=== PATIENT | female | born 1955 | race Caucasian/White ===

== ENCOUNTER → 2017-10-18 08:15 | Outpatient (CLI) | payer MEDICARE, SELFPAY ==
--- NOTE | 2017-10-18 07:29 | DI.REPORT_ITS ---
SYMPTOM/DIAGNOSIS: F/U LT FEMUR LEFT FEMUR: The patient is status post intramedullary tammie and nail fixation of a subtrochanteric fracture. There has been no change in the apposition or alignment of the fracture components and progressive healing is noted when compared with a previous examination of 09/11/17.
== END ==
PROVIDERS: PCP Nurse Practitioner Family; Visit Provider Student in an Organized Health Care Education/Training Program
DX: S72.22XD Displaced subtrochanteric fracture of left femur, subsequent encounter for closed fracture with routine healing (principal); W01.0XXD Fall on same level from slipping, tripping and stumbling without subsequent striking against object, subsequent encounter
CPT/HCPCS: 73552

== ENCOUNTER → 2017-10-24 10:25 | Outpatient (CLI) | payer MEDICARE, SELFPAY ==
[2017-10-24 11:11] LABS: HCT 42.7 % (36.0-46.0); HGB 13.9 g/dL (12.0-15.5); Mean Corp. HGB Concentration 32.6 g/dL (32.0-36.0); Mean Corpuscular Hemoglobin 30.5 pg (27.0-33.0); Mean Corpuscular Volume 93.6 fL (80-95); Mean Platelet Volume 10.6 fL (8.0-11.0); Platelet Count 179 x1000/uL (130-400); RBC 4.56 m/cumm (4.00-5.20); RBC Distribution Width 14.2 % (11.7-14.6); White Blood Cell Count 4.95 k/cumm (4.4-10.8)
[2017-10-24 11:41] LABS: Hemoglobin A1C 5.5 % (4.5-6.2)
[2017-10-24 12:22] LABS: ESR 36 MM/HR (0-30)
[2017-10-24 12:43] LABS: Iron 68 ug/dL (50-175); Total Iron Binding Capacity 279 ug/dL (250-450); Transferrin Sat 24 % (15-50)
[2017-10-24 12:58] LABS: ALT 26 U/L (12-78); AST 24 U/L (15-37); Albumin 4.1 g/dL (3.4-5.0); Alkaline Phosphatase 130 U/L (46-116); Anion Gap 8.5 mmol/L (3-11); BUN 9 mg/dL (7-18); Bilirubin, Total 0.4 mg/dL (0.2-1.0); CO2 29.5 mmol/L (21.0-32.0); CREATININE 0.75 mg/dL (0.55-1.02); Calcium 9.7 mg/dL (8.5-10.1); Chloride 105 mmol/L (98-107); Ferritin 68 ng/mL (8-388); Glucose 84 mg/dL (70-100); Potassium 4.4 mmol/L (3.5-5.1); Sodium 143 mmol/L (136-145); TSH (W/Ref FT4) 1.24 uIU/mL (0.358-3.74); Total Protein 7.9 g/dL (6.4-8.2)
[2017-10-24 13:12] LABS: C-Reactive Protein 0.42 mg/dL (0.0-0.3); Creatine Kinase 137 U/L (26-192)
[2017-10-25 11:05] LABS: Hepatitis C Ab w Rflx HCV PCR Negative (NEGAT)
== END ==
PROVIDERS: PCP Nurse Practitioner Family; Visit Provider Nurse Practitioner Family
DX: D64.9 Anemia, unspecified (principal); R63.4 Abnormal weight loss
CPT/HCPCS: 36415; 80053; 82550; 85027; 85652; 86803; 82728; 83036; 83540; 83550; 84443; 86140

== ENCOUNTER 2018-07-26 13:24 | Outpatient (REF) | payer MEDICARE, SELFPAY ==
--- NOTE | 2018-07-26 11:10 | PAPFT_PTH ---
PATIENT: Sandy Hernández LOC: [facility] U#:[id number] AGE/SX: 63/F ROOM: RE07/26/[address]: Solo Khan MD : 1955 BED: DIS: 07/26/2018 SPEC #: [id number] RECD: 07/26/18 17:41 STATUS: ENA REYolande #: [id number] IKER: 07/26/18 11:[address]: Solo Khan DEPT: COUNTS INCLUDE 234 BEDS AT THE [facility] Cytology RECD BY: Chiquis Veras ENTERED: 07/26/18 17:42 SP TYPE: PAPFT OTHR DR: Chantal Alvarez Tissues: 1 - CX/ENDOCX FOR PAP SMEARS Procedures: PAP THIN PREP/UVM Screening HPV DNA PROBE Comments: [id number]
== END 2018-07-26 13:44 ==
LOC: LBN 13:24
PROVIDERS: PCP Nurse Practitioner Family; Visit Provider Obstetrics & Gynecology
DX: Z12.4 Encounter for screening for malignant neoplasm of cervix (principal); Z11.51 Encounter for screening for human papillomavirus (HPV)
CPT/HCPCS: 88142; 87624

== ENCOUNTER 2018-07-31 00:17 | Outpatient (CLI) | payer MEDICARE, SELFPAY ==
--- NOTE | 2018-07-31 08:30 | DI.MAMMO_ITS ---
SYMPTOM/DIAGNOSIS: SCREENING, PREVENTATIVE CARE, Z00.00 MAMMOGRAMS: Mammograms were interpreted according to the usual protocol including computer analysis with CAD system, tomosynthesis and C view imaging. The breast tissue is heterogeneously radiodense which lowers the sensitivity of the examination. There is no dominant mass. There are no suspicious calcifications and there has been no significant interval change when compared with prior images. IMPRESSION: No evidence of malignancy, category 1. Yearly screening mammography is recommended. Breast density, Category C. SA ASSESSMENT OF FINDINGS: Negative. Category 1. Patient will receive a letter notifying them of these results. Bi-RADS category C. The breasts are heterogeneously dense, which may obscure small masses.
== END 2018-07-31 00:37 ==
PROVIDERS: PCP Nurse Practitioner Family; Visit Provider Nurse Practitioner Family
DX: Z12.31 Encounter for screening mammogram for malignant neoplasm of breast (principal)
CPT/HCPCS: 77063; 77067

== ENCOUNTER 2018-09-17 13:32 | Emergency (ER) | payer MEDICARE, SELFPAY ==
[2018-09-17 13:39] VITALS: BP 133/80; PULSE 97; RESP 16; TEMP 36.9
[2018-09-17 14:51] VITALS: RESP 18
--- NOTE | 2018-09-17 15:03 | W.ED.GENAD ---
Discharge Plan Disposition Patient Disposition: HOME Condition: Stable Discharge Details Chief Complaint: GenMedical Clinical Impression: General weakness Primary Care Provider: Danay Mckeon ED Provider: Ino Beaulieu Home Meds and New Rx's Prescriptions: No Action oxybutynin chloride 5 MG tablet 10 mg PO DAILY RF: 0 wp-2-wps-epa-fish oil-vit D3 1 EACH capsule 1 ea PO DAILY RF: 0 fluticasone propion-salmeterol [Advair Diskus] 1 EACH blister with device 1 puff Inhalation BID RF: 0 Spiriva with HandiHaler 18 MCG capsule, w/inhalation device 1 puff Inhalation DAILY RF: 0 Glucosamine Sulf-Chondroitin 1 EACH capsule 1 ea PO DAILY RF: 0 albuterol sulfate [Ventolin HFA] 200 PUFF HFA aerosol inhaler 2 puff Inhalation .Q4-6H PRN PRNRF: 0 Elda Protect 142 GM cream 1 applic Topical PRN PRNRF: 0 Discharge Instructions Instructions: Weakness (ED) Additional Instructions: Your exam, lab work and xray did not reveal a cause for your symptoms. The xray did show pulmonary nodules. There is nothing to do for these at the present time but you need to inform your primary care provider of these when you follow up as further imaging should be done as an outpatient follow up with your primary care office within 1-2 weeks if you have worsening symptoms, feel more ill, or have new symptoms such as chest pain, difficulty breathing, abdominal pain or vision changes return to the emergency department for reevaluation Medical Decision Making 63 yo female with hx of copd who continues to smoke who comes in with chief complaint of worsening general weakness over the past few months. She denies fevers, chills, headache, does have intermittent cough but doesn't feel it is worse than baseline, denies unilateral weakness, no vision changes, no chest pain or sob. She is speaking in full sentences with steady gait on exam and no focal deficits, NIH of 0 so doubt cva. No fevers to suggest infectious etiology to symptoms. Has had a 6 pound unexplained weight loss per with no appetitite so could be cancer of some sort, will obtain cbc to eval for anemia, electrolytes to eval for abnormalities, check tsh and also chest xray given her smoking hx. NO chest pain, no jvd or lower extremity swelling so dobut acs or chf. pt remains stable, lab work is unremarkable, awaiting cxr cxr unremarkable on isacearishi, she continues to ambulate withot problems or symptoms of presyncope. IF vrad agrees with no acute findings will d/c and have her f/u with pcp and return if she has worsening symptoms or new concerning symptoms such as vision changes, fevers or abdominal/chest pain chest xray on vrad shows pulmonary nodules, otherwise unremarkable. Pt was advised to f/u with pcp to discuss further imaging for these Differential Diagnosis anemia, cancer, electrolyte abnormality Medical Records Medical records reviewed: Yes I reviewed the patient's medical records. Imaging Data Radiologic Study: Attestation: I personally reviewed and interpreted this imaging study as follows: Imaging: X-Ray My impression: no acute findings Lab Data Lab results reviewed: Yes I reviewed the patient's lab results. ECG Data Attestation: I personally reviewed and interpreted this ECG (s) as follows: Prior ECG tracings: available for review Interpretation: sinus rhythm, rate of 75, pr 130 , no acute st t wavfe ischemic changes compared to old HPI General Mode of arrival: ambulatory. Date/Time Provider Initiated Documentation: 09/17/18 13:53. Limitations to Documentation: no limitations. Information obtained by: patient. History of Present Illness 63 year old F presents to the emergency department with the chief complaint of general weakness, described as moderate, Patient started experiencing this week(s) (8) and it has been constant. No relieving factors improve symptom(s), No exacerbating factors reported . Patient notes other (no appetite). Patient did receive the following treatments prior to arrival, none Related Data Home Medications Medication Instructions Recorded Confirmed Glucosamine Sulf-Chondroitin 1 ea PO DAILY 11/20/12 09/17/18 Spiriva with HandiHaler 1 puff INHALATION DAILY 11/20/12 09/17/18 fluticasone propion-salmeterol 1 puff INHALATION BID 11/20/12 09/17/18 [Advair Diskus] oxybutynin chloride 10 mg PO DAILY 02/13/14 09/17/18 hf-9-lxr-epa-fish oil-vit D3 1 ea PO DAILY 05/12/14 09/17/18 albuterol sulfate [Ventolin HFA] 2 puff INHALATION .Q4-6H PRN PRN 01/26/17 09/17/18 Elda Protect 1 applic TOPICAL PRN PRN tube 07/31/17 09/17/18 Previous Rx's Medication Instructions Recorded Elda Protect 1 applic TOPICAL PRN PRN tube 07/31/17 Allergies Allergy/AdvReac Type Severity Reaction Status Date / Time No Known Allergies Allergy Unverified 09/17/18 14:39 General Stated Complaint: GenMedical FILOMENA: 4 Review of Systems Review of Systems All systems reviewed & are unremarkable except as noted in HPI and below Constitutional Denies chills and Denies fever(s) Cardiovascular Denies chest pain and Denies dyspnea Respiratory Denies dyspnea Gastrointestinal Denies abdominal pain and Denies vomiting Genitourinary Denies dysuria Integumentary/Breasts Denies rash Endocrine Denies cold intolerance and Denies heat intolerance PFSH Social History Smoking/Tobacco Use Status: Current every day Alcohol Intake: current Drug use: Never Do you feel safe in your relationship?: Yes Exam Const General: no acute distress Orientation: alert HENMT Head: normal to inspection Ears: external ears normal General nose exam: external nose normal Mouth: moist mucous membranes Eyes General: appearance normal, both eyes and all related structures Neck Neck: normal visual inspection Resp Effort & Inspection: normal respiratory effort and able to speak in complete sentences Cardio Rate: regular rate Skin General skin exam: no rashes or lesions noted Neuro General: alert and oriented x3 Extrem General: normal to inspection Psych Mental Status: mental status grossly normal Course Vital Signs Temperature 36.9 C 09/17/18 13:39 Pulse 97 H 09/17/18 13:39 Respiratory Rate 16 09/17/18 13:39 Blood Pressure 133/80 09/17/18 13:39 Temperature 36.9 C 09/17/18 13:39 Temperature Source Temporal Artery Scan 09/17/18 13:39 Pulse 97 H 09/17/18 13:39 Respiratory Rate 18 09/17/18 14:51 Respiratory Effort 09/17/18 14:51 Respiratory Depth Normal 09/17/18 14:51 Blood Pressure 133/80 09/17/18 13:39 Blood Pressure Position Sitting 09/17/18 13:39 Pain Level 0 09/17/18 13:39
--- NOTE | 2018-09-17 15:08 | ED.GENADUL_ITS ---
Discharge Plan Disposition Patient Disposition: HOME Condition: Stable Discharge Details Chief Complaint: GenMedical Clinical Impression: General weakness Primary Care Provider: Danay Mckeon ED Provider: Ino Beaulieu Home Meds and New Rx's Prescriptions: No Action oxybutynin chloride 5 MG tablet 10 mg PO DAILY RF: 0 aj-6-mck-epa-fish oil-vit D3 1 EACH capsule 1 ea PO DAILY RF: 0 fluticasone propion-salmeterol [Advair Diskus] 1 EACH blister with device 1 puff Inhalation BID RF: 0 Spiriva with HandiHaler 18 MCG capsule, w/inhalation device 1 puff Inhalation DAILY RF: 0 Glucosamine Sulf-Chondroitin 1 EACH capsule 1 ea PO DAILY RF: 0 albuterol sulfate [Ventolin HFA] 200 PUFF HFA aerosol inhaler 2 puff Inhalation .Q4-6H PRN PRNRF: 0 Elda Protect 142 GM cream 1 applic Topical PRN PRNRF: 0 Discharge Instructions Instructions: Weakness (ED) Additional Instructions: Your exam, lab work and xray did not reveal a cause for your symptoms. The xray did show pulmonary nodules. There is nothing to do for these at the present time but you need to inform your primary care provider of these when you follow up as further imaging should be done as an outpatient follow up with your primary care office within 1-2 weeks if you have worsening symptoms, feel more ill, or have new symptoms such as chest pain, difficulty breathing, abdominal pain or vision changes return to the emergency department for reevaluation Medical Decision Making 63 yo female with hx of copd who continues to smoke who comes in with chief complaint of worsening general weakness over the past few months. She denies fevers, chills, headache, does have intermittent cough but doesn't feel it is worse than baseline, denies unilateral weakness, no vision changes, no chest pain or sob. She is speaking in full sentences with steady gait on exam and no focal deficits, NIH of 0 so doubt cva. No fevers to suggest infectious etiology to symptoms. Has had a 6 pound unexplained weight loss per with no appetitite so could be cancer of some sort, will obtain cbc to eval for anemia, electrolytes to eval for abnormalities, check tsh and also chest xray given her smoking hx. NO chest pain, no jvd or lower extremity swelling so dobut acs or chf. pt remains stable, lab work is unremarkable, awaiting cxr cxr unremarkable on isacearishi, she continues to ambulate withot problems or symptoms of presyncope. IF vrad agrees with no acute findings will d/c and have her f/u with pcp and return if she has worsening symptoms or new concerning symptoms such as vision changes, fevers or abdominal/chest pain chest xray on vrad shows pulmonary nodules, otherwise unremarkable. Pt was advised to f/u with pcp to discuss further imaging for these Differential Diagnosis anemia, cancer, electrolyte abnormality Medical Records Medical records reviewed: Yes I reviewed the patient's medical records. Imaging Data Radiologic Study: Attestation: I personally reviewed and interpreted this imaging study as follows: Imaging: X-Ray My impression: no acute findings Lab Data Lab results reviewed: Yes I reviewed the patient's lab results. ECG Data Attestation: I personally reviewed and interpreted this ECG (s) as follows: Prior ECG tracings: available for review Interpretation: sinus rhythm, rate of 75, pr 130 , no acute st t wavfe ischemic changes compared to old HPI General Mode of arrival: ambulatory . Date/Time Provider Initiated Documentation: 09/17/18 13:53 . Limitations to Documentation: no limitations . Information obtained by: patient . History of Present Illness 63 year old F presents to the emergency department with the chief complaint of general weakness, described as moderate, Patient started experiencing this week(s) (8) and it has been constant. No relieving factors improve symptom(s), No exacerbating factors reported . Patient notes other (no appetite). Patient did receive the following treatments prior to arrival, none Related Data Home Medications Medication Instructions Recorded Confirmed Glucosamine Sulf-Chondroitin 1 ea PO DAILY 11/20/12 09/17/18 Spiriva with HandiHaler 1 puff INHALATION DAILY 11/20/12 09/17/18 fluticasone propion-salmeterol 1 puff INHALATION BID 11/20/12 09/17/18 [Advair Diskus] oxybutynin chloride 10 mg PO DAILY 02/13/14 09/17/18 ed-5-xnl-epa-fish oil-vit D3 1 ea PO DAILY 05/12/14 09/17/18 albuterol sulfate [Ventolin HFA] 2 puff INHALATION .Q4-6H PRN PRN 01/26/17 09/17/18 Elda Protect 1 applic TOPICAL PRN PRN tube 07/31/17 09/17/18 Previous Rx's Medication Instructions Recorded Elda Protect 1 applic TOPICAL PRN PRN tube 07/31/17 Allergies Allergy/AdvReac Type Severity Reaction Status Date / Time No Known Allergies Allergy Unverified 09/17/18 14:39 General Stated Complaint: GenMedical FILOMENA: 4 Review of Systems Review of Systems All systems reviewed & are unremarkable except as noted in HPI and below Constitutional Denies chills and Denies fever(s) Cardiovascular Denies chest pain and Denies dyspnea Respiratory Denies dyspnea Gastrointestinal Denies abdominal pain and Denies vomiting Genitourinary Denies dysuria Integumentary/Breasts Denies rash Endocrine Denies cold intolerance and Denies heat intolerance PFSH Social History Smoking/Tobacco Use Status: Current every day Alcohol Intake: current Drug use: Never Do you feel safe in your relationship?: Yes Exam Const General: no acute distress Orientation: alert HENMT Head: normal to inspection Ears: external ears normal General nose exam: external nose normal Mouth: moist mucous membranes Eyes General: appearance normal, both eyes and all related structures Neck Neck: normal visual inspection Resp Effort & Inspection: normal respiratory effort and able to speak in complete sentences Cardio Rate: regular rate Skin General skin exam: no rashes or lesions noted Neuro General: alert and oriented x3 Extrem General: normal to inspection Psych Mental Status: mental status grossly normal Course Vital Signs Temperature 36.9 C 09/17/18 13:39 Pulse 97 H 09/17/18 13:39 Respiratory Rate 16 09/17/18 13:39 Blood Pressure 133/80 09/17/18 13:39 Temperature 36.9 C 09/17/18 13:39 Temperature Source Temporal Artery Scan 09/17/18 13:39 Pulse 97 H 09/17/18 13:39 Respiratory Rate 18 09/17/18 14:51 Respiratory Effort 09/17/18 14:51 Respiratory Depth Normal 09/17/18 14:51 Blood Pressure 133/80 09/17/18 13:39 Blood Pressure Position Sitting 09/17/18 13:39 Pain Level 0 09/17/18 13:39
[2018-09-17 15:23] LABS: Abs Immature Grans 0.01 k/cumm (0.0-0.09); Absolute Basophil Count 0.03 k/cumm (0.0-0.2); Absolute Eosinophil Count 0.19 k/cumm (0.0-0.7); Absolute Lymphocyte Count 1.36 k/cumm (1.2-3.4); Absolute Monocyte Count 0.51 k/cumm (0.11-0.7); Basophils % 0.5; HCT 41.8 % (36.0-46.0); HGB 13.8 g/dL (12.0-15.5); Immature Grans % 0.2; Lymphocytes % 21.6; Mean Corpuscular Hemoglobin 31.4 pg (27.0-33.0); Mean Platelet Volume 10.8 fL (8.0-11.0); Monocytes % 8.1; Neutrophils % 66.6; Platelet Count 201 x1000/uL (130-400); RBC Distribution Width 13.1 % (11.7-14.6)
[2018-09-17 15:34] LABS: Prothrombin Time 10.3 sec (9.3-11.0)
[2018-09-17 15:40] LABS: ALT 20 U/L (12-78); AST 15 U/L (15-37); Albumin 3.6 g/dL (3.4-5.0); Alkaline Phosphatase 102 U/L (46-116); Anion Gap 6.5 mmol/L (3-11); BUN 18 mg/dL (7-18); Bilirubin, Direct 0.08 mg/dL (0.00-0.20); Bilirubin, Total 0.3 mg/dL (0.2-1.0); CO2 30.5 mmol/L (21.0-32.0); CREATININE 0.73 mg/dL (0.55-1.02); Calcium 9.8 mg/dL (8.5-10.1); Chloride 103 mmol/L (98-107); Glucose 83 mg/dL (70-100); Potassium 4.3 mmol/L (3.5-5.1); Sodium 140 mmol/L (136-145); TSH (W/Ref FT4) 1.23 uIU/mL (0.358-3.74); Total Protein 7.9 g/dL (6.4-8.2)
--- NOTE | 2018-09-17 16:00 | DI.RAD_ITS ---
SYMPTOM/DIAGNOSIS: COUGH, GENERAL WEAKNESS PA AND LATERAL CHEST: 09/17 The heart is not enlarged. Lungs are predominantly clear but with question of nodular radiodensities superimposed in the right lower lung field, intrapulmonary nodule not excluded. Questionable upper lobe nodular opacities also could be present bilaterally. No pleural effusion seen. CONCLUSION: Question new intrapulmonary nodules, correlation with chest CT recommended.
--- NOTE | 2018-09-17 16:39 | DI.VRAD_ITS ---
EXAM: XR Chest, 2 Views EXAM DATE/TIME: 09/17/2018 3:54 PM CLINICAL HISTORY: 63 years old, female; Patient HX: Cough, general weakness TECHNIQUE: Imaging protocol: XR of the chest, 2 views. COMPARISON: SC PORTABLE CHEST ONE VIEW 07/29/2017 3:17 PM FINDINGS: Lungs: There is a focal nodular opacity measuring approximately 13 mm within the left upper lobe superimposed over the posterior left fifth rib and a questionable nodular opacity within the right upper lobe superimposed over the right fifth rib. There is a nodular opacity measuring approximately 23 mm within the right infrahilar lung superimposed over the posterior aspect of the right 10th rib. The lung volumes are increased, consistent with COPD. No pulmonary consolidation is identified. Bilateral nipple shadows are present. Pleural space: No pleural effusion or pneumothorax is seen. Heart/Mediastinum: The cardiomediastinal silhouette and pulmonary vasculature are within normal limits. Bones/joints: There is an indeterminate calcific density focus superimposed over the right humerus surgical neck. There is mild degenerative spondylosis throughout the thoracic spine. IMPRESSION: 1. COPD. 2. Findings suspicious for bilateral pulmonary nodules. Further evaluation with CT scan of the chest is recommended. 3. Indeterminate calcific density superimposed over the right proximal humerus. Dictated and Authenticated by: Aiden Hendrickson MD. Ordering:REUBEN Mckinnon MD
== END 2018-09-17 16:48 | disposition home or self-care (01) ==
PROVIDERS: Emergency Provider Emergency Medicine; PCP Nurse Practitioner Family
DX: R53.1 Weakness (principal); R93.89 Abnormal findings on diagnostic imaging of other specified body structures; J44.9 Chronic obstructive pulmonary disease, unspecified; F17.210 Nicotine dependence, cigarettes, uncomplicated
CPT/HCPCS: 36415; 80053; 80076; 93005; 99285; 71046; 83735; 84443; 85025; 85610; 85730; 93010; 99284

== ENCOUNTER 2018-09-24 08:58 | Outpatient (REF) | payer MEDICARE, SELFPAY ==
--- NOTE | 2018-09-24 08:30 | CER_PTH ---
PATIENT: Sandy Hernández LOC: N U#:[id number] AGE/SX: 63/F ROOM: RE09/24/[address]: Solo Khan MD : 1955 BED: DIS: 09/24/2018 SPEC #: [id number] RECD: 09/24/18 12:43 STATUS: ENA REYolande #: [id number] IKER: 09/24/18 08:[address]: Solo Khan DEPT: Surgical Specimen RECD BY: Chiquis Veras ENTERED: 09/24/18 12:44 SP TYPE: CER OTHR DR: Danay Mckeon Tissues: 1 - CERVICAL BIOPSY 2 - CERVICAL BIOPSY 3 - CERVICAL BIOPSY 4 - ENDOCERVICAL BX/CURRETTE Procedures: GROSS AND MICRO LEVEL 4 Comments: [id number]
== END 2018-09-24 09:18 ==
LOC: LBN 08:58
PROVIDERS: PCP Nurse Practitioner Family; Visit Provider Obstetrics & Gynecology
DX: N87.1 Moderate cervical dysplasia (principal); R87.613 High grade squamous intraepithelial lesion on cytologic smear of cervix (HGSIL); R87.810 Cervical high risk human papillomavirus (HPV) DNA test positive
CPT/HCPCS: 88305

== ENCOUNTER 2018-09-27 12:06 | Outpatient (CLI) | payer MEDICARE, SELFPAY ==
--- NOTE | 2018-09-27 13:27 | DI.CT_ITS ---
SYMPTOM/DIAGNOSIS: RT LOWER LOBE PULMONARY NODULE, R91.[address]: The study was carried out according to the usual protocol and reveals evidence of centrilobular COPD. Also note is made of bronchiectasis, more prominent in the lower lobes and right middle lobe. There is an apparent region of right middle lobe scarring. There has been no change in the status of a spiculated right upper lobe area of nodularity. Interval development of a 9.1 mm., ovoid nodule in the left upper lobe is noted. There is central radiolucency surrounded by a moderately thick rind and a small mural nodular is noted within this lesion. No other nodules are apparent. There is no evidence of a pleural effusion. There is no evidence of gross hilar or mediastinal adenopathy. The heart is not enlarged. Coronary artery calcification is demonstrated. The aorta is intact. SUMMARY: COPD, right upper lobe nodule unchanged. Interval development of a 9 mm. left upper lobe nodule is demonstrated as described above. Further evaluation of this patient with a with contrast contrast CT is suggested for further review. If a follow up examination with contrast is not obtained, then a repeat low dose chest CT is suggested 3-6 months.
== END 2018-09-27 12:26 ==
PROVIDERS: PCP Nurse Practitioner Family; Visit Provider Nurse Practitioner Family
DX: R91.1 Solitary pulmonary nodule (principal); J44.9 Chronic obstructive pulmonary disease, unspecified
CPT/HCPCS: 71250

== ENCOUNTER 2018-09-30 07:01 | Emergency (ER) | payer MEDICARE, SELFPAY ==
[2018-09-30 07:04] VITALS: BP 106/77; PULSE 99; RESP 18; TEMP 36.9; O2SAT 96
--- NOTE | 2018-09-30 07:11 | W.ED.GENAD ---
Discharge Plan Disposition Patient Disposition: HOME Condition: Good Discharge Details Chief Complaint: GenMedical Clinical Impression: Physically well but worried, Recent weight loss Primary Care Provider: Danay Mckeon ED Provider: Iain Cee Home Meds and New Rx's Prescriptions: No Action oxybutynin chloride 5 MG tablet 10 mg PO DAILY RF: 0 xs-3-exf-epa-fish oil-vit D3 1 EACH capsule 1 ea PO DAILY RF: 0 fluticasone propion-salmeterol [Advair Diskus] 1 EACH blister with device 1 puff Inhalation BID RF: 0 Spiriva with HandiHaler 18 MCG capsule, w/inhalation device 1 puff Inhalation DAILY RF: 0 Glucosamine Sulf-Chondroitin 1 EACH capsule 1 ea PO DAILY RF: 0 albuterol sulfate [Ventolin HFA] 200 PUFF HFA aerosol inhaler 2 puff Inhalation .Q4-6H PRN PRNRF: 0 Elda Protect 142 GM cream 1 applic Topical PRN PRNRF: 0 Discharge Instructions Additional Instructions: Even though you are down 1 to 3 pounds in the morning your weight seems to be back to normal by the evening. However out of respective you are concerned we will check for parasites. Once you get the stool sample please bring it back with the slip of paper to the lab for further evaluation. Please continue to drink your Ensure, eat high-protein meals and follow-up closely with your primary care provider. If you notice any worsening of your symptoms, or any new symptoms such as vomiting, diarrhea, fever, chills, shortness of breath, chest pain, numbness, weakness, or fainting , please return immediately to the emergency department for reevaluation. Please follow up with your primary care provider as soon as possible for reassessment and reevaluation. As always, it was a pleasure participating in your medical care today. Referrals: Danay Mckeon [Primary Care Provider] - Medical Decision Making This is a 63-year-old female who presents today for evaluation of weight loss. She has known history of lung nodules which are being monitored, and recently had a colposcopy which demonstrated high-grade squamous intraepithelial lesions and is scheduled to follow-up with these results later this month. Patient states that over the last 3 days she has lost 3 pounds. Her baseline weight is 100 pounds, and today she is 97. She states that in spite of this weight loss during the afternoon for the last few days she has an increase in her weight to 102-103. She denies any nausea vomiting or diarrhea she denies any dark or tarry stools. She denies any abdominal pain or cramping. Patient states multiple times during her visit that she is convinced that her symptoms are from parasites. She has no history of foreign travel, parasite exposure, or previous parasite lesions. Physical exam demonstrates a thin but otherwise unremarkable exam. No abdominal tenderness. No guarding or rebound. No evidence of an acute surgical abdomen or other abnormalities. The patient had a CT scan of the chest that was otherwise benign this month. Out of respect for the patient's notable concern we will order outpatient stool cultures for the patient. We discussed the importance of close follow-up with her primary care provider and reassessment for any worsening of her symptoms. With the resolution of her weight issues in the evening every day, do not feel that this is a significant or true weight loss, however I do feel that close follow-up is certainly reasonable and indicated. I have extensively reviewed the treatment plan and discharge instructions with the patient and their family. I have addressed all patient concerns at this time. The patient and family was made aware of what symptoms to monitor for that would warrant a return to the emergency department. Discussed the plan with the patient and family, they demonstrate verbal understanding and agreement with our assessment and plan at this time. HPI General Date/Time Provider Initiated Documentation: 09/30/18 07:02. HPI Narrative: This is a 63-year-old female with a past medical history of known pulmonary nodule that is currently being followed with repeat CT imaging, arthritis, cataracts, COPD, chronic kidney stones, who presents today for evaluation of weight loss. Patient states that over the last 3 days she has lost 3 pounds. Her baseline weight is 100 pounds, and today she states that she is 97. However she states that over the last 3 days even though she is low in her weight in the morning her weight is 102 to 10 3 at night. Patient is very anxious and concerned about this. She states that I have an appointment later this month but if I wait too long just below way in the wind. She is also very concerned about parasites. She denies any foreign travel, drinking from streams, or any previous parasites. She seems to be notably preoccupied on this. She states that she feels that this is the primary reason that she is losing weight in the morning. She denies any abdominal pain, nausea, vomiting, diarrhea, hematochezia, melena, acholic stool, numbness, tingling or weakness. She is drinking daily ensures. She denies any history of significant malignancy. Of note she was recently diagnosed with high-grade squamous intraepithelial lesions on colposcopy, and is scheduled to follow-up with her OB doctor early this month. Patient has no other complaints modifying factors Related Data Home Medications Medication Instructions Recorded Confirmed Glucosamine Sulf-Chondroitin 1 ea PO DAILY 11/20/12 09/24/18 Spiriva with HandiHaler 1 puff INHALATION DAILY 11/20/12 09/24/18 fluticasone propion-salmeterol 1 puff INHALATION BID 11/20/12 09/24/18 [Advair Diskus] oxybutynin chloride 10 mg PO DAILY 02/13/14 09/24/18 ax-1-qpq-epa-fish oil-vit D3 1 ea PO DAILY 05/12/14 09/24/18 albuterol sulfate [Ventolin HFA] 2 puff INHALATION .Q4-6H PRN PRN 01/26/17 09/24/18 Elda Protect 1 applic TOPICAL PRN PRN tube 07/31/17 09/24/18 Previous Rx's Medication Instructions Recorded Elda Protect 1 applic TOPICAL PRN PRN tube 07/31/17 Allergies Allergy/AdvReac Type Severity Reaction Status Date / Time No Known Allergies Allergy Unverified 09/24/18 08:12 General Stated Complaint: GenMedical FILOMENA: 3 Review of Systems Review of Systems All systems reviewed & are unremarkable except as noted in HPI and below PFSH Social History Smoking/Tobacco Use Status: Current every day Tobacco Type: cigarettes Alcohol Intake: never Drug use: Never Substance use type: does not use Do you feel safe at home: Yes Do you feel safe in your relationship?: Yes Exam Narrative Exam Narrative: 1.Const: Thin, Well-developed, appearing stated age 2.Eyes: PERRL, no conjunctival injection, and symmetrical lids. 3.ENT: Atraumatic external nose and ears. Moist MM. Neck: Symmetric, trachea midline, No thyromegaly. 4.CVS: +S1/S2, No murmurs or gallops. Peripheral pulses 2+ and equal in all extremities. Brisk capillary refill in all extremities. 5.RESP: Unlabored respiratory effort. Clear to auscultation bilaterally. No wheezes rales or rhonchi 6.GI: Soft, Nontender/Nondistended, No hepatosplenomegaly. No guarding or rebound. 7.MSK: Normocephalic/Atraumatic, Extremities w/o deformity or ttp No cyanosis or clubbing, Normal movement of all extremities 8.Skin: Warm, Dry. No rashes or lesions. 9.Neuro: roll dough divider II-XII grossly intact. Sensation grossly intact, no focal neurologic deficits. 10.Psych: (AAO) x3. Appropriate mood and affect Course Vital Signs Temperature 36.9 C 09/30/18 07:04 Pulse 99 H 09/30/18 07:04 Respiratory Rate 18 09/30/18 07:04 Blood Pressure 106/77 09/30/18 07:04 Pulse Oximetry 96 09/30/18 07:04 Temperature 36.9 C 09/30/18 07:04 Temperature Source Temporal Artery Scan 09/30/18 07:04 Pulse 99 H 09/30/18 07:04 Respiratory Rate 18 09/30/18 07:04 Respiratory Effort Non-Labored 09/30/18 07:10 Blood Pressure 106/77 09/30/18 07:04 Blood Pressure Position Sitting 09/30/18 07:04 Pulse Oximetry 96 09/30/18 07:04 Oxygen Delivery Method Room Air 09/30/18 07:04 Oxygen Flow Rate 0 09/30/18 07:04 Pain Level 0 09/30/18 07:04
== END 2018-09-30 07:39 | disposition home or self-care (01) ==
PROVIDERS: Emergency Provider Student in an Organized Health Care Education/Training Program; PCP Nurse Practitioner Family
DX: R63.4 Abnormal weight loss (principal); Z71.1 Person with feared health complaint in whom no diagnosis is made; J44.9 Chronic obstructive pulmonary disease, unspecified; F17.210 Nicotine dependence, cigarettes, uncomplicated
CPT/HCPCS: 99281; 87177

== ENCOUNTER 2018-10-29 10:08 | Outpatient (REF) | payer MEDICARE, SELFPAY ==
--- NOTE | 2018-10-29 09:25 | CER_PTH ---
PATIENT: Sandy Hernández LOC: [facility] U#:[id number] AGE/SX: 63/F ROOM: RE10/29/[address]: Solo Khan MD : 1955 BED: DIS: 10/29/2018 SPEC #: [id number] RECD: 10/29/18 12:05 STATUS: ENA REYolande #: [id number] IKER: 10/29/18 09:[address]: Solo Khan DEPT: Surgical Specimen RECD BY: Lilian Cannon ENTERED: 10/29/18 12:10 SP TYPE: CER OTHR DR: Chantal Alvarez Tissues: 1 - CERVICAL LEEP/LOOP 2 - CERVICAL LEEP/LOOP 3 - ENDOCERVICAL BX/CURRETTE Procedures: GROSS AND MICRO LEVEL 5 Comments: [id number]
== END 2018-10-29 10:28 ==
LOC: LBN 10:08
PROVIDERS: PCP Nurse Practitioner Family; Visit Provider Obstetrics & Gynecology
DX: N87.1 Moderate cervical dysplasia (principal); N88.8 Other specified noninflammatory disorders of cervix uteri; Z87.410 Personal history of cervical dysplasia
CPT/HCPCS: 88305; 88307

== ENCOUNTER 2019-02-05 00:53 | Outpatient (CLI) | payer MEDICARE, SELFPAY ==
--- NOTE | 2019-02-05 13:30 | DI.CT_ITS ---
EXAM: CT CHEST W CLINICAL HISTORY: LT AND RT UPPER LOBE PULMONARY NODULES, R91.1 TECHNIQUE: Post IV contrast COMPARISON: CHEST - LUNG CANCER SCREENING from 03/28/2016 XR CHEST 2V PA LATERAL from 09/17/2018 CT CHEST WO from 09/27/2018 FINDINGS: The previously noted cavitary lesion in the left upper lobe with a small mural nodule now has the kera earance of a solid 10 millimeter nodule. The borders do not appear circumscribed. There is a stable area of presumed scarring in the right upper lobe. A small stable area of scarring is noted lateral ly in the left upper lobe. There are moderate changes of centrilobular emphysema greater in the uppe r lobes. There is mild lateral lower lobe and right middle lobe bronchiectasis. There is some mucou s plugging within a few bronchi in the medial right middle lobe. No acute infiltrates, pleural or pe ricardial effusions are seen. There are coronary artery calcifications and mild aortic calcification s. The heart size is normal. There is mild dilatation of the thoracic aorta to 3.6 cm. No adenopat hy is seen. The visualized portions of the upper abdomen are unremarkable. IMPRESSION: Interval increase of left upper lobe nodule, now with a solid appearance. Biopsy is recommended for further evaluation.
[2019-02-05 14:16] LABS: CREATININE 0.71 mg/dL (0.55-1.02)
[2019-02-05] MEDS: Omnipaque 350 MG/ML 100 ML BTL IJ (14:47)
== END 2019-02-05 01:13 ==
PROVIDERS: PCP Nurse Practitioner Family; Visit Provider Nurse Practitioner Family
DX: R91.1 Solitary pulmonary nodule (principal); R91.8 Other nonspecific abnormal finding of lung field; J47.9 Bronchiectasis, uncomplicated
CPT/HCPCS: 71260; 82565; J3490

== ENCOUNTER 2019-07-24 01:58 | Outpatient (CLI) | payer MEDICARE, SELFPAY ==
[2019-07-24] MEDS: Normal Saline - Diluent 50 ML VIAL IV (13:56)
[2019-07-24] MEDS: Omnipaque 350 MG/ML 100 ML BTL IJ (13:58)
--- NOTE | 2019-07-24 13:59 | DI.CT_ITS ---
EXAM: CT CHEST W CLINICAL HISTORY: RT LOWER LOBE NODULE, R91.1, SMOKER, ASSESS FOR PROGRESSION TECHNIQUE: CT examination of the chest was performed with bolus infusion of 70 cc of Omnipaque 350. COMPARISON: CT CT CHEST W from 02/05/2019 FINDINGS: Current examination is compared with prior study of February 05, 2019. Images obtained through the upper abdomen show non-obstructing bilateral renal calculi and an apparen t 3 cm in diameter right renal cyst. The liver and spleen appear normal as visualized as does the pa ncreas. Gallbladder has been surgically removed. Adrenals unremarkable. There is no evidence of pulmonary embolic disease. No thoracic aortic abnormality seen apart from mi ld calcified atheromatous plaque. No mediastinal or hilar adenopathy. There is moderate diffuse central lobular emphysema most prominent in the upper lobes. Previously de scribed bilateral upper lobe pulmonary nodules are again seen, on the right measuring up to about 9.5 millimeters in diameter and then on the left measuring about 10 millimeters in diameter. These both appear spiculated, tiny satellite nodules appear to be present associated with the right upper lobe lesion. The findings appear stable since the prior examination. No new area of pulmonary consolidation seen. There are, however, a couple of apparent small new pulmo nary nodules, one in the left upper lobe posteriorly measuring about 3-4 millimeters in diameter and another on the superior aspect of the left lower lobe measuring about [address] diame ter. Calcified pulmonary nodule again noted at the right lung base. IMPRESSION: Little interval change in appearance of dominant biapical pulmonary nodules since January 2019. Two small new nodules are noted in the left lung, findings are suspicious for neoplastic disease. Clini cheli correlation requested regarding any interval tissue sampling or treatment.
== END 2019-07-24 02:18 ==
PROVIDERS: PCP Nurse Practitioner Family; Visit Provider Nurse Practitioner Family
DX: R91.1 Solitary pulmonary nodule (principal); F17.210 Nicotine dependence, cigarettes, uncomplicated; N20.0 Calculus of kidney; N28.1 Cyst of kidney, acquired; J43.8 Other emphysema; R91.8 Other nonspecific abnormal finding of lung field
CPT/HCPCS: 71260; J3490

== ENCOUNTER 2019-08-21 09:32 | Outpatient (REF) | payer MEDICARE, SELFPAY ==
--- NOTE | 2019-08-21 09:00 | PAPFT_PTH ---
PATIENT: Sandy Hernández LOC: N U#:[id number] AGE/SX: 64/F ROOM: RE08/21/[address]: Abbi Beaulieu NP : 1955 BED: DIS: 08/21/2019 SPEC #: [id number] RECD: 08/21/19 12:56 STATUS: ENA KUHN #: [id number] IKER: 08/21/19 09:[address]: Abbi Beaulieu NP DEPT: [facility] Cytology RECD BY: Chiquis Veras ENTERED: 08/21/19 12:57 SP TYPE: PAPFT OTHR DR: Danay Mckeon Tissues: 1 - CX/ENDOCX FOR PAP SMEARS Procedures: PAP THIN PREP/UVM Screening Comments: [id number]
== END 2019-08-21 09:52 ==
LOC: LBN 09:32
PROVIDERS: PCP Nurse Practitioner Family; Visit Provider Nurse Practitioner Women's Health
DX: Z12.4 Encounter for screening for malignant neoplasm of cervix (principal); Z11.51 Encounter for screening for human papillomavirus (HPV); R87.613 High grade squamous intraepithelial lesion on cytologic smear of cervix (HGSIL)
CPT/HCPCS: 88142

== ENCOUNTER 2019-09-05 13:36 | Outpatient (REF) | payer MEDICARE, SELFPAY ==
--- NOTE | 2019-09-05 13:20 | ENDO_PTH ---
PATIENT: Sandy Hernández LOC: [facility] U#:[id number] AGE/SX: 64/F ROOM: RE09/05/[address]: Solo Khan MD : 1955 BED: DIS: 09/05/2019 SPEC #: [id number] RECD: 09/05/19 16:37 STATUS: ENA REQ #: [id number] IKER: 09/05/19 13:[address]: Solo Khan DEPT: Surgical Specimen RECD BY: Chiquis Veras ENTERED: 09/05/19 16:37 SP TYPE: Endo OTHR DR: Danay Mckeon Tissues: 1 - ENDOCERVICAL BX/CURRETTE Procedures: GROSS AND MICRO LEVEL 4 Comments: [id number]
== END 2019-09-05 13:56 ==
LOC: LBN 13:36
PROVIDERS: PCP Nurse Practitioner Family; Visit Provider Obstetrics & Gynecology
DX: N87.1 Moderate cervical dysplasia (principal); R87.613 High grade squamous intraepithelial lesion on cytologic smear of cervix (HGSIL)
CPT/HCPCS: 88305

== ENCOUNTER 2019-09-16 00:29 | Outpatient (CLI) | payer OTHER, SELFPAY ==
--- NOTE | 2019-09-16 09:30 | DI.MAMMO_ITS ---
EXAM: MAMMO SCREENING CLINICAL HISTORY: screening TECHNIQUE: Mammograms were interpreted according to the usual protocol including computer analysis w [employer] CAD system, tomosynthesis and C-view imaging. COMPARISON: 2010 through 2018 FINDINGS: The breasts are composed of heterogeneously dense fibroglandular densities, Breast Density category C . No suspicious masses or suspicious microcalcifications are seen. Coarse, benign calcifications are a gain noted bilaterally. No skin thickening or abnormal axillary lymph nodes are seen. There has been no significant change from prior exams. IMPRESSION: BI-RADS Category 2- negative mammogram with benign Findings Breast Density Category C, heterogeneously dense tissue which decreases the sensitivity of the mammog hossein. The mammogram demonstrates the patient's breast tissue is dense. Dense breast tissue is very common a nd is not abnormal but dense breast tissue can make it harder to find cancer on a mammogram. Also, de nse breast tissue may increase breast cancer risk. This information about the result of the mammogram report was provided to the patient to raise their awareness. Use this report when you speak with the patient about their risks for breast cancer, which includes their family history. At that time, you may recommend additional screening tests (Ultrasound or MRI) as they might be useful based on their r isk. A negative radiographic report should not delay biopsy if a dominant or clinically suspicious mass is present. Up to ten percent of cancers are not identified on mammography. A negative report may reinforce clinical impression. Adenosis and dense breasts may obscure an underlying neoplasm. False positive reports average 6 to 10%.
== END 2019-09-16 00:49 ==
PROVIDERS: PCP Nurse Practitioner Family; Visit Provider Nurse Practitioner Women's Health
DX: Z12.31 Encounter for screening mammogram for malignant neoplasm of breast (principal)
CPT/HCPCS: 77063; 77067

== ENCOUNTER 2019-10-28 09:18 | Outpatient (REF) | payer OTHER, SELFPAY ==
--- NOTE | 2019-10-28 08:20 | CER_PTH ---
PATIENT: Sandy Hernández LOC: [facility] U#:[id number] AGE/SX: 64/F ROOM: RE10/28/[address]: Solo Khan MD : 1955 BED: DIS: 10/28/2019 SPEC #: [id number] RECD: 10/28/19 10:42 STATUS: ENA REQ #: [id number] IKER: 10/28/19 08:[address]: Solo Khan DEPT: Surgical Specimen RECD BY: Carlotta Cain ENTERED: 10/28/19 10:44 SP TYPE: CER OTHR DR: Danay Mckeon Tissues: 1 - CERVICAL LEEP/LOOP Procedures: GROSS AND MICRO LEVEL 5 Comments: [id number]
== END 2019-10-28 09:38 ==
LOC: LBN 09:18
PROVIDERS: PCP Nurse Practitioner Family; Visit Provider Obstetrics & Gynecology
DX: N87.1 Moderate cervical dysplasia (principal)
CPT/HCPCS: 88307

== ENCOUNTER 2019-11-13 21:19 | Outpatient (REF) | payer OTHER, SELFPAY ==
[2019-11-13 20:42] LABS: Bilirubin Negative (Negative); Blood Large (Negative); Clarity Cloudy (Clear); Glucose Negative (Negative); Ketones Negative (Negative); Leukocyte Esterase Moderate (Negative); Nitrite Positive (Negative); Specific Gravity >= 1.030 (1.005-1.025); Urobilinogen 0.2 EU/dL (Up TO 0.2); pH 5.5 (5-8)
[2019-11-13 20:58] LABS: Bacteria Many HPF (Negative); C & S Indicated? Yes; Casts Negative LPF (Negative); Crystals Negative HPF (Negative); Epithelial Cells Few HPF (Negative); Mucus Negative (Negative); WBC 20-50 HPF (0-5)
== END 2019-11-13 21:39 ==
LOC: NCHCN 21:19
PROVIDERS: PCP Nurse Practitioner Family; Visit Provider Nurse Practitioner Family
DX: R30.0 Dysuria (principal)
CPT/HCPCS: 87077; 81003; 81015; 87086; 87186

== ENCOUNTER 2019-11-14 08:45 | Outpatient (REF) | payer OTHER, SELFPAY ==
[2019-11-14 15:44] LABS: HCT 45.9 % (36.0-46.0); MCH 31.4 pg (27.0-33.0); MCHC 32.7 % (32.0-36.0); MPV 11.3 fL (8.0-11.0); Platelet Count 196 10^3/uL (130-400); RBC 4.78 10^6/uL (3.93-5.22); RDW-SD 46.3 fL; WBC 6.49 10^3/uL (4.4-10.8)
[2019-11-14 16:33] LABS: Iron 104 ug/dL (50-170); Total Iron Binding Capacity 254 ug/dL (250-450); Transferrin Sat 41 % (15-50)
[2019-11-14 16:55] LABS: Vitamin D 25 Total 62.8 ng/ml (30-100)
[2019-11-14 17:08] LABS: ALT 25 U/L (14-59); AST 25 U/L (15-37); Albumin 4.1 g/dL (3.4-5.0); Alkaline Phosphatase 110 U/L (46-116); Anion Gap 6.4 mmol/L (3-11); BUN 16 mg/dL (7-18); Bilirubin, Total 0.6 mg/dL (0.2-1.0); CO2 30.6 mmol/L (21.0-32.0); CREATININE 0.77 mg/dL (0.55-1.02); Calcium 9.8 mg/dL (8.5-10.1); Chloride 107 mmol/L (98-107); Glucose 86 mg/dL (74-106); Potassium 4.5 mmol/L (3.5-5.1); Sodium 144 mmol/L (136-145); TSH (W/Ref FT4) 1.12 uIU/mL (0.36-3.74); Total Protein 8.3 g/dL (6.4-8.2); Vitamin B12 1297 pg/mL (193-986)
== END 2019-11-14 09:05 ==
LOC: NCHCN 08:45
PROVIDERS: PCP Nurse Practitioner Family; Visit Provider Nurse Practitioner Family
DX: R53.83 Other fatigue (principal); R63.4 Abnormal weight loss; D64.9 Anemia, unspecified; M85.88 Other specified disorders of bone density and structure, other site
CPT/HCPCS: 80053; 82306; 85027; 82607; 83540; 83550; 83735; 84443

== ENCOUNTER 2020-01-23 01:20 | Outpatient (CLI) | payer OTHER, SELFPAY ==
--- NOTE | 2020-01-23 14:15 | DI.CT_ITS ---
EXAM: CT CHEST WO CLINICAL HISTORY: 6 MONTH RESTAGING EXAM,LUNG NODULES,R91.8. TECHNIQUE: Imaging protocol: Axial computed tomography images were obtained and coronal and sagittal reformatted images were created and reviewed. COMPARISON: CT CT CHEST W from 07/24/2019 FINDINGS: Tracheobronchial tree: Patent where visualized. Mediastinum and Beatriz: No dominant adenopathy or fluid collection. Pulmonary parenchyma: The bilateral upper lobe pulmonary nodules are stable in size. They each measu re approximately 1 cm. No new pulmonary nodules are present. Centrilobular emphysematous changes ar e present in the lungs. An ill-defined reticular nodular right basilar infiltrate is present. Pleura: No effusion or pneumothorax. Heart: The heart is not dilated. Moderate coronary artery calcification is present. No pericardial e ffusion. Aorta: Thoracic aorta non-dilated. Atherosclerosis. Upper abdomen: Bilateral nephrolithiasis. Status post cholecystectomy. Right renal cyst. Lymph nodes: Within normal limits. Bones:Multilevel degenerative changes. Soft tissues: Unremarkable. IMPRESSION: 1. Stable bilateral pulmonary nodules. 2. Reticular nodular right basilar infiltrate. An infectious or inflammatory pneumonitis cannot be e xcluded. Please correlate clinically. 3. Centrilobular emphysema. 4. Coronary artery calcification and atherosclerosis. 5. Stable incidental findings in the abdomen. RADIATION DOSE DELIVERED: 305.42mGy.cm Total DLP 305.42mGy.cm Total DLP DATA REPOSITORY: All CT scans at this facility are submitted to the National Radiology Data Registry (NRDR) Dose Index Registry (DIR) with the [employer] ([employer]). RADIATION OPTIMIZATION: All CT scans at this facility use at least one of these dose optimization te chniques: automated exposure control; mA and/or kV adjustment per patient size (includes targeted exa ms where dose is matched to clinical indication); or iterative reconstruction.
== END 2020-01-23 01:40 ==
PROVIDERS: PCP Nurse Practitioner Family; Visit Provider Radiology Radiation Oncology
DX: R91.8 Other nonspecific abnormal finding of lung field (principal); J43.2 Centrilobular emphysema; N20.0 Calculus of kidney; Z90.49 Acquired absence of other specified parts of digestive tract
CPT/HCPCS: 71250

== ENCOUNTER 2020-01-23 01:23 | Outpatient (CLI) | payer OTHER, SELFPAY ==
[2020-01-23] MEDS: Omnipaque 350 MG/ML 50 ML BTL PO (12:53)
[2020-01-23] MEDS: Breeza Beverage 473 ML BTL PO ×2 (12:54→12:55)
--- NOTE | 2020-01-23 14:30 | DI.CT_ITS ---
EXAM: CT ABDOMEN PELVIS W CLINICAL HISTORY: UNINTENTIONAL WT LOSS,R63.4 TECHNIQUE: Imaging Protocol: Axial computed tomography images with coronal and sagittal reformatted images were created and reviewed CONTRAST MATERIAL: Intravenous: Omnipaque 350 Contrast volume:70 mL Oral: Yes COMPARISON: CT ABD/PELVIS WO W CONTRAST from 05/11/2010 CT ABD PELVIS WITH CONTRAST from 02/28/2012 FINDINGS: ABDOMEN: Liver: Normal density. No measurable mass. Portal, Superior Mesenteric, and Splenic Veins: Unremarkable. Gallbladder and Biliary Tract: Status post cholecystectomy. No biliary ductal dilatation. Pancreas: Normal density, no abnormal calcifications or inflammatory process. Spleen: Normal. Adrenals: No masses seen. Kidneys: Normal size, contour and axis. There is a 0.5 cm nonobstructing stone in the lower pole of t he right kidney. There is a 0.8 cm nonobstructing stone in the lower pole of the left kidney. There are bilateral renal cysts. Abdominal Aorta: Abdominal portion non-dilated. Atherosclerosis. Bowel: No obstruction or bowel wall thickening. No evidence of acute appendicitis. There is a large amount of stool throughout the colon. Peritoneal Cavity: No ascites, collection or mesenteric inflammatory response. Lymph Nodes: Within normal limits. Bones: Status post L5 laminectomy. Moderately severe degenerative changes are present throughout the lumbar spine. Multilevel central spinal canal and neural foraminal stenosis is present. Note is ma de of an intramedullary tammie and nail in the left femur. Soft Tissues: Unremarkable. PELVIS: Bladder: Symmetric distention, no gross wall thickening. Reproductive Organs: Unremarkable as visualized. Lymph Nodes: Within normal limits. Bones: Please see the above discussion. IMPRESSION: 1. No evidence of an acute abdominal pelvic process. 2. Bilateral nephrolithiasis no evidence of hydronephrosis. 3. Multilevel degenerative changes in the lumbar spine resulting in multilevel central spinal canal a nd neural foraminal stenosis. 4. Status post cholecystectomy. No biliary ductal dilatation. RADIATION DOSE DELIVERED: 479.84mGy.cm Total DLP DATA REPOSITORY: All CT scans at this facility are submitted to the National Radiology Data Registry (NRDR) Dose Index Registry (DIR) with the [employer] ([employer]). RADIATION OPTIMIZATION: All CT scans at this facility use at least one of these dose optimization te chniques: automated exposure control; mA and/or kV adjustment per patient size (includes targeted exa ms where dose is matched to clinical indication); or iterative reconstruction.
[2020-01-23] MEDS: Normal Saline - Diluent 50 ML VIAL IV (14:32)
[2020-01-23] MEDS: Omnipaque 350 MG/ML 100 ML BTL 70 ML IJ (14:33)
[2020-01-23] MEDS: Normal Saline Flush 10 ML SYR IVP (14:35)
== END 2020-01-23 01:43 ==
PROVIDERS: PCP Nurse Practitioner Family; Visit Provider Nurse Practitioner Family
DX: N20.0 Calculus of kidney (principal); M47.816 Spondylosis without myelopathy or radiculopathy, lumbar region; M48.061 Spinal stenosis, lumbar region without neurogenic claudication; R63.4 Abnormal weight loss
CPT/HCPCS: 74177; J3490; Q9967

== ENCOUNTER 2020-02-13 01:26 | Outpatient (CLI) | payer OTHER, SELFPAY ==
--- NOTE | 2020-02-13 | DI.US_ITS ---
EXAM: US THYROID CLINICAL HISTORY: UNINTENTIONAL WT LOSS,R63.4,ENLARGED THYROID,E04.9. TECHNIQUE: Ultrasound thyroid performed using standard protocol. COMPARISON: No exams were available for comparison FINDINGS: Right thyroid lobe measures 1.2 centimetres AP by 1.7 centimetres wide by 4.9 centimetres cephalocaud al. And There is a solitary finding in the right lobe which is a spongiform 9 x 5 x 5 millimeter nodule locat ed medially in the upper aspect. Smooth margins. No echogenic foci and well-defined. No other foca l findings evident in the right lobe. Isthmus is thin measuring 1-2 millimeters and is not contain nodules. The left thyroid lobe measures 1.2 centimeters AP x 1.2 centimeters wide by 4.6 centimeter cephalocau marry. There are no nodules evident in the left lobe. IMPRESSION: Both thyroid lobes exhibit normal size and relatively homogeneous echo architecture. There is a sing le nodule which is in the upper medial aspect of the right lobe measuring 9 x 5 x 5 millimeters, as d escribed above. TI-RADS LEVEL: 1 DATA REPOSITORY:
== END 2020-02-13 01:46 ==
PROVIDERS: PCP Nurse Practitioner Family; Visit Provider Nurse Practitioner Family
DX: R63.4 Abnormal weight loss (principal); E04.2 Nontoxic multinodular goiter
CPT/HCPCS: 76536

== ENCOUNTER 2020-05-04 09:30 | Outpatient (REF) | payer OTHER, SELFPAY ==
--- NOTE | 2020-05-04 09:00 | PAPFT_PTH ---
PATIENT: Sandy Hernández LOC: N U#:[id number] AGE/SX: 64/F ROOM: RE05/04/[address]: Yesy Ervin MD : 1955 BED: DIS: 05/04/2020 SPEC #: [id number] RECD: 05/04/20 13:13 STATUS: ENA REYolande #: [id number] IKER: 05/04/20 09:[address]: Yesy Ervin DEPT: [facility] Cytology RECD BY: Chiquis Veras ENTERED: 05/04/20 13:13 SP TYPE: PAPFT OTHR DR: Danay Mckeon Tissues: 1 - CX/ENDOCX FOR PAP SMEARS Procedures: PAP THIN PREP/UVM Screening Comments: [id number]
== END 2020-05-04 09:31 | disposition home or self-care (01) ==
LOC: LBN 09:30
PROVIDERS: PCP Nurse Practitioner Family; Visit Provider Obstetrics & Gynecology
DX: Z12.4 Encounter for screening for malignant neoplasm of cervix (principal); R87.613 High grade squamous intraepithelial lesion on cytologic smear of cervix (HGSIL)
CPT/HCPCS: 88142

== ENCOUNTER 2020-05-14 13:00 | Outpatient (REF) | payer OTHER, SELFPAY ==
--- NOTE | 2020-05-14 12:15 | ENDO_PTH ---
PATIENT: Sandy Hernández LOC: [facility] U#:[id number] AGE/SX: 64/F ROOM: RE05/14/[address]: Chelsey Cuellar : 1955 BED: DIS: 05/14/2020 SPEC #: [id number] RECD: 05/14/20 13:03 STATUS: ENA KUHN #: [id number] IKER: 05/14/20 12:[address]: Chelsey Cuellar DEPT: Surgical Specimen RECD BY: Chiquis Veras ENTERED: 05/14/20 13:04 SP TYPE: Endo OTHR DR: Danay Mckeon Tissues: 1 - ENDOCERVICAL BX/CURRETTE 2 - CERVICAL BIOPSY Procedures: GROSS AND MICRO LEVEL 4 Comments: [id number]
== END 2020-05-14 13:01 | disposition home or self-care (01) ==
LOC: LBN 13:00
PROVIDERS: PCP Nurse Practitioner Family; Visit Provider Obstetrics & Gynecology Gynecology
DX: N87.0 Mild cervical dysplasia (principal); R87.613 High grade squamous intraepithelial lesion on cytologic smear of cervix (HGSIL)
CPT/HCPCS: 88305

== ENCOUNTER → 2020-07-24 04:08 | Outpatient (CLI) | payer OTHER, SELFPAY ==
--- NOTE | 2020-07-24 | DI.CT_ITS ---
Exam(s) CT CHEST WO EXAM: CT CHEST WO CLINICAL HISTORY: F/U LUNG NODULES,6 MO F/U,R91.8 TECHNIQUE: Imaging Protocol: Axial computed tomography images with coronal and sagittal reformatted images were created and reviewed CONTRAST MATERIAL: Noncontrast. COMPARISON: CT CHEST WITH CONTRAST from 01/22/2014 CT CHEST WITH CONTRAST from 01/22/[address] CHEST WO from 09/27/[address] CHEST WO from 09/27/[address] CHEST WO from 01/23/[address] ABDOMEN PELVIS W from 01/23/[address] ABDOMEN PELVIS W from 01/23/[address] CHEST WO from 01/23/2020 FINDINGS: Cardiovascular: The heart size is normal. There are moderate coronary artery calcifications. There is dilatation of the ascending aorta to 3.6 cm. No pleural or pericardial effusions or adenopathy is seen. Pulmonary parenchyma: An area of scarring is again noted in the right upper lobe. There is a stable rounded nodule in the left upper lobe measuring 7 x 10 millimeters. The examination from September 2018 s howed a cystic cavity in this area. This is unchanged in size. There are 2 tiny areas of adjacent n odularity laterally in the left upper lobe which appear unchanged over multiple exams. There are underlying emphysematous changes. Bronchiectasis and wall thickening is again noted in the lower lobes, greater at the right lung base. There is some mucous plugging seen in right lower lobe bronchi. There has been some improvement in the previously noted right lower lobe infiltrate. No n ew nodules or infiltrates are seen. Bones: Degenerative changes. No compression fracture. Upper abdomen: Status post cholecystectomy. Nonobstructing stone lower pole left kidney. Visualized portions of the abdominal aorta show atherosclerotic changes and normal diameter. IMPRESSION: Stable right upper lobe scarring. Stable area of nodularity in the left upper lobe. Clearing of previously noted right lower lobe infiltrate. Right lower lobe bronchiectasis and mucous plugging. If the patient is at high risk for lung cancer, a low-dose screening CT is suggested in 1 year. RADIATION DOSE DELIVERED: 301.03mGy.cm Total DLP DATA REPOSITORY: All CT scans at this facility are submitted to the National Radiology Data Registry (NRDR) Dose Index Registry (DIR) with the [employer] (ACR). RADIATION OPTIMIZATION: All CT scans at this facility use at least one of these dose optimization te chniques: automated exposure control; mA and/or kV adjustment per patient size (includes targeted exa ms where dose is matched to clinical indication); or iterative reconstruction.
== END ==
PROVIDERS: PCP Nurse Practitioner Family; Visit Provider Radiology Radiation Oncology
DX: R91.1 Solitary pulmonary nodule (principal)
CPT/HCPCS: 71250

== ENCOUNTER 2020-11-11 05:50 | Emergency (ER) | payer OTHER, SELFPAY ==
[2020-11-11] VITALS (40 sets, daily range): BP systolic 94–136; BP diastolic 59–91; PULSE 81–102; RESP 8–27; TEMP 36.8; O2SAT 80–98
--- NOTE | 2020-11-11 05:45 | RT.EKG_ITS ---
APPROVED REPORT Exam: Resting ECG Reason for Exam: thoracic pain Patient Location: E HR:91 bpm ECG Measurements Heart Rate 91 AXIS UT 106 P 40 QRSd 80 QRS 47 QT 358 T 59 QTc 442 Conclusion Sinus rhythm...normal P axis, V-rate 60- 99
--- NOTE | 2020-11-11 05:52 | W.ED.GENAD ---
Discharge Plan Disposition Patient Disposition: HOME Condition: Stable Discharge Details Clinical Impression: Chest pain Primary Care Provider: Danay Mckeon ED Provider: Luther Jerez Home Meds and New Rx's Prescriptions: Continued oxybutynin chloride 5 MG tablet 10 mg PO DAILY RF: 0 [id number] oil-vit D3 1 EACH capsule 1 ea PO DAILY RF: 0 fluticasone propion-salmeterol [Advair Diskus] 1 EACH blister with device 1 puff Inhalation BID RF: 0 Spiriva with HandiHaler 18 MCG capsule, w/inhalation device 1 puff Inhalation DAILY RF: 0 Glucosamine Sulf-Chondroitin 1 EACH capsule 1 ea PO DAILY RF: 0 albuterol sulfate [Ventolin HFA] 200 PUFF HFA aerosol inhaler 2 puff Inhalation .Q4-6H PRN PRNRF: 0 fluticasone propion-salmeterol [Wixela Inhub] 500-50 mcg/dose blister with device 2 inh INHALATION PRN PRNRF: 0 zaleplon 10 mg capsule 10 mg PO DAILY RF: 0 cetirizine 10 mg tablet 10 mg PO DAILY RF: 0 omeprazole 20 mg capsule,delayed release(DR/EC) 20 mg PO DAILY RF: 0 mirtazapine 7.5 mg tablet 7.5 mg PO DAILY RF: 0 Discharge Instructions Instructions: Chest Pain (ED) Additional Instructions: You will receive an appointment for follow-up in pulmonary clinic. Use your Acapella device to mobilize secretions as taught by respiratory therapy. Continue routine medications. Continue your efforts to decrease tobacco use. Return to the emergency department for any acute concerns. Medical Decision Making <Ino Beaulieu MD - Last Filed: 11/11/20 06:46> 65 yo female with hx of copd and chronic smoker, htn, who states she has had unexplained weight loss and is due to have PET scan tomorrow per patient comes in with chest pain on the left side. She states she went to bed last night feeling well and then woke up from sleep an hour or so ago with left sided chest pain. She denies fevers, chills, cough, headaches, anterior chest pressure, abdomen pain, n/v. She does appear very thin on exam and otherwise is in no distress. She localizes the pain to the left lateral chest in mid axillary line over the 4-6 ribs, no rashes, clear lungs and no murmurs and no leg swelling or calf tenderness. She is tender to the area on exam. She states it worsens when she takes a deep breath in otherwise she can't think of anything that makes the pain better or worse. Given the pain is pleuritic will obtain cta of the chest to evaluate for pe. Pain seems very atypical for acs, ekg without ischemic changes, will obtain troponin and likely delta troponin. No tearing back pain and normal vascular exam so doubt dissection. No abdomen tenderness at all on exam so doubt surgical pathology such as cholecystitis or sbo. She declines pain medicine at this time Differential Diagnosis Differential Diagnosis: chest wall pain, pe, pleurisy Medical Records Medical records reviewed: Yes I reviewed the patient's medical records. Lab Data Lab results reviewed: Yes I reviewed the patient's lab results. ECG Data Attestation: I personally reviewed and interpreted this ECG (s) as follows: <Luther Jerez MD - Last Filed: 11/11/20 09:46> Received signout from Dr. Beaulieu. Please see his note regarding details of the presentation, exam and plan of care. Patient CT revealed extensive plugging in the right mainstem bronchus, as well as small pulmonary nodules. There were no acute pulmonary embolism found. Our local food preparation kitchen aide, Dr. Dennis was able to consult on the patient in the ER, sputum was obtained. Patient was seen by respiratory therapy and provided an Acapella secretion mobilizing device. She was improved, monitored on the cardiac telemetry, and repeat troponin obtained and negative. Patient felt improved and requested discharge. She will follow up with pulmonology. Lab Data Lab results reviewed: Yes I reviewed the patient's lab results. Labs: Laboratory Results - last 24 hr 11/11/20 11/11/20 11/11/20 06:13 06:13 06:13 WBC 8.91 RBC 4.39 Hgb 13.7 Hct 42.2 MCV 96.1 H MCH 31.2 MCHC 32.5 RDW 12.5 Plt Count 195 MPV 10.2 Immature Gran % 0.2 Neutrophils % 69.8 Lymphocytes % 18.5 Monocytes % 9.1 Eosinophils % 2.0 Basophils % 0.4 Nucleated RBC % 0 Absolute Neutrophils 6.21 Absolute Lymphocytes 1.65 Absolute Monocytes 0.81 H Absolute Eosinophils 0.18 Absolute Basophils 0.04 Sodium 140 Potassium 4.0 Chloride 104 Carbon Dioxide 30.0 Anion Gap 6.0 BUN 13 Creatinine 0.8 Estimated GFR/1.73 m2 >= 60.00 Glucose 98 Calcium 9.5 Magnesium 2.0 Total Bilirubin 0.5 Conjugated Bilirubin 0.2 AST 25 ALT 31 Alkaline Phosphatase 112 Troponin I < 0.05 Total Protein 7.9 Albumin 3.7 Lipase 80 Urine Color Urine Clarity Urine pH Ur Specific [facility] Urine Protein Urine Ketones Urine Blood Urine Nitrite Urine Bilirubin Urine Urobilinogen Ur Leukocyte Esterase Urine RBC Urine WBC Ur Epithelial Cells Urine Crystals Urine Bacteria Urine Casts Urine Mucus Ur Culture Indicated? Urine Glucose 11/11/20 06:35 WBC RBC Hgb Hct MCV MCH MCHC RDW Plt Count MPV Immature Gran % Neutrophils % Lymphocytes % Monocytes % Eosinophils % Basophils % Nucleated RBC % Absolute Neutrophils Absolute Lymphocytes Absolute Monocytes Absolute Eosinophils Absolute Basophils Sodium Potassium Chloride Carbon Dioxide Anion Gap BUN Creatinine Estimated GFR/1.73 m2 Glucose Calcium Magnesium Total Bilirubin Conjugated Bilirubin AST ALT Alkaline Phosphatase Troponin I Total Protein Albumin Lipase Urine Color Yellow Urine Clarity Clear Urine pH 7.0 Ur Specific [facility] 1.020 Urine Protein Trace H Urine Ketones Negative Urine Blood Trace-intact H Urine Nitrite Negative Urine Bilirubin Negative Urine Urobilinogen 0.2 Ur Leukocyte Esterase Negative Urine RBC 0-2 Urine WBC 3-5 Ur Epithelial Cells Moderate Urine Crystals Negative Urine Bacteria Few Urine Casts Negative Urine Mucus Trace Ur Culture Indicated? No/Sq. Contamination Urine Glucose Negative My heart was a negative I sister has fairly early she he is awake left HPI <Ino Beaulieu MD - Last Filed: 11/11/20 06:46> General Mode of arrival: EMS. Date/Time Provider Initiated Documentation: 11/11/20 05:52. Limitations to Documentation: no limitations. Information obtained by: patient. History of Present Illness 65 year old F presents to the emergency department with the chief complaint of left lateral lower chest pain, described as moderate, and is localized to the chest. Patient reports no radiation. Patient started experiencing this hour(s) (1) and it has been constant. No relieving factors improve symptom(s), Other factors that worsen symptoms (deep breaths) . Patient did receive the following treatments prior to arrival, none Related Data Home Medications Medication Instructions Recorded Confirmed Glucosamine Sulf-Chondroitin 1 ea PO DAILY 11/20/12 11/11/20 Spiriva with HandiHaler 1 puff INHALATION DAILY 11/20/12 11/11/20 fluticasone propion-salmeterol 1 puff INHALATION BID 11/20/12 10/28/19 [Advair Diskus] oxybutynin chloride 10 mg PO DAILY 02/13/14 11/11/20 [id number] oil-vit D3 1 ea PO DAILY 05/12/14 11/11/20 albuterol sulfate [Ventolin HFA] 2 puff INHALATION .Q4-6H PRN PRN 01/26/17 11/11/20 cetirizine 10 mg PO DAILY 11/11/20 11/11/20 fluticasone propion-salmeterol 2 inh INHALATION PRN PRN 11/11/20 11/11/20 [Wixela Inhub] mirtazapine 7.5 mg PO DAILY 11/11/20 11/11/20 omeprazole 20 mg PO DAILY 11/11/20 11/11/20 zaleplon 10 mg PO DAILY 11/11/20 11/11/20 Allergies Allergy/AdvReac Type Severity Reaction Status Date / Time No Known Allergies Allergy Unverified 11/11/20 05:58 General FILOMENA: 3 Review of Systems <Ino Beaulieu MD - Last Filed: 11/11/20 06:46> All systems reviewed & are unremarkable except as noted in HPI and below Constitutional Constitutional: Denies chills, Denies fever(s) and Denies weakness Cardiovascular Cardiovascular: Denies dyspnea Respiratory Respiratory: Denies cough and Denies dyspnea Gastrointestinal Gastrointestinal: Denies abdominal pain, Denies nausea and Denies vomiting Musculoskeletal Musculoskeletal: Denies joint swelling Neurologic Neurologic: Denies weakness Psychiatric Psychiatric: Denies depression PFS <Ino Beaulieu MD - Last Filed: 11/11/20 06:46> Medical History COPD (chronic obstructive pulmonary disease) Fx femur shaft-open 2918. Tobacco use Social History Smoking/Tobacco Use Status: Current every day Tobacco Type: cigarettes Smoking risk assessment performed?: Yes Alcohol Intake: never Drug use: Never Substance use type: does not use Do you feel safe at home: Yes Do you feel safe in your relationship?: Yes Exam <Ino Beaulieu MD - Last Filed: 11/11/20 06:46> Const General: no acute distress Orientation: alert HENMT Head: normal to inspection Ears: external ears normal General nose exam: external nose normal Mouth: moist mucous membranes Eyes General: appearance normal, both eyes and all related structures Neck Neck: normal visual inspection Chest Chest: normal inspection of the chest Resp Effort & Inspection: normal respiratory effort and able to speak in complete sentences Cardio Rate: regular rate Skin General skin exam: no rashes or lesions noted Neuro General: patient alert and patient oriented x3 Extrem General: normal to inspection Psych Mental Status: mental status grossly normal Sign Out <Ino Beaulieu MD - Last Filed: 11/11/20 06:46> Sign Out Data: Sign Out Comment: pleuritic left sided chest pain, pending ct and delta troponin, reassessment, declined pain meds Last updated by Ino Beaulieu MD at 11/11/20 06:48
--- NOTE | 2020-11-11 06:00 | DI.CT_ITS ---
Exam(s) CT CHEST PE CTA EXAM: CT CHEST PE CTA CLINICAL HISTORY: left sided pleuritic chest pain. TECHNIQUE: Imaging Protocol: Axial CT angiography was performed with multi-slice acquisition and mu lti-planar and/or 3D reconstructions. CONTRAST MATERIAL: Intravenous: Omnipaque 350 Contrast volume:50 mL COMPARISON: CT CT CHEST WO from 07/24/2020 FINDINGS: Tracheobronchial tree: There are areas of mucous plugging predominantly in the lower lobes. Pulmonary parenchyma: No new focal consolidation. Stable nodular areas in the upper lobes. There ar e a few small new pulmonary nodules present. The most obvious is in the left upper lobe (series 7 th e image 114). Moderate centrilobular and paraseptal emphysematous changes are present. Pulmonary Arteries: No evidence of filling defect to suggest pulmonary emboli. Mediastinum and Beatriz: No dominant adenopathy or fluid collection. Visualized thyroid gland: Unremarkable. Pleura: No effusion or pneumothorax. Heart: The heart is not dilated. Mild coronary artery calcification. No pericardial effusion. Aorta: Thoracic aorta non-dilated. Atherosclerosis. No evidence of dissection. Upper abdomen: Unremarkable. Soft tissues: Unremarkable. Bones: Within normal limits for the patient's age. IMPRESSION: 1. No evidence of pulmonary embolism, thoracic aortic dissection or aneurysm. 2. Multiple pulmonary nodules including some new nodules. Metastatic disease is concerning. PET-CT scan should be considered. 3. Extensive mucous plugging. This is worrisome for aspiration. RADIATION DOSE DELIVERED: 163.44mGy.cm Total DLP DATA REPOSITORY: All CT scans at this facility are submitted to the National Radiology Data Registry (NRDR) Dose Index Registry (DIR) with the [employer] (ACR). RADIATION OPTIMIZATION: All CT scans at this facility use at least one of these dose optimization te chniques: automated exposure control; mA and/or kV adjustment per patient size (includes targeted exa ms where dose is matched to clinical indication); or iterative reconstruction.
[2020-11-11 06:18] LABS: Abs Immature Grans 0.02 10^3/uL (0.0-0.06); Absolute Basophil Count 0.04 10^3/uL (0.0-0.2); Absolute Eosinophil Count 0.18 10^3/uL (0.0-0.7); Absolute Lymphocyte Count 1.65 10^3/uL (1.2-3.4); Absolute Monocyte Count 0.81 10^3/uL (0.1-0.8); Absolute Neutrophil Count 6.21 10^3/uL (1.2-6.7); Basophils % 0.4; HCT 42.2 % (36.0-46.0); HGB 13.7 g/dL (11.2-15.7); Immature Grans % 0.2; Lymphocytes % 18.5; MCH 31.2 pg (27.0-33.0); MCHC 32.5 % (32.0-36.0); MCV 96.1 fL (80-95); MPV 10.2 fL (8.0-11.0); Monocytes % 9.1; Neutrophils % 69.8; Nucleated RBC 0 %; Platelet Count 195 10^3/uL (130-400); RBC 4.39 10^6/uL (3.93-5.22); RDW 12.5 % (11.7-14.6); RDW-SD 44.6 fL; WBC 8.91 10^3/uL (4.4-10.8)
[2020-11-11 06:40] LABS: Bilirubin Negative (Negative); Blood Trace-intact (Negative); Clarity Clear (Clear); Glucose Negative (Negative); Ketones Negative (Negative); Leukocyte Esterase Negative (Negative); Nitrite Negative (Negative); Urobilinogen 0.2 EU/dL (Up TO 0.2)
[2020-11-11 06:45] LABS: ALT 31 U/L (14-59); AST 25 U/L (15-37); Albumin 3.7 g/dL (3.4-5.0); Alkaline Phosphatase 112 U/L (46-116); BUN 13 mg/dL (7-18); Bilirubin, Direct 0.2 mg/dL (0.0-0.2); Bilirubin, Total 0.5 mg/dL (0.2-1.0); CREATININE 0.8 mg/dL (0.55-1.02); Calcium 9.5 mg/dL (8.5-10.1); Chloride 104 mmol/L (98-107); Glucose 98 mg/dL (74-106); Lipase 80 U/L (73-393); Sodium 140 mmol/L (136-145); Total Protein 7.9 g/dL (6.4-8.2)
[2020-11-11 06:48] LABS: Troponin I < 0.05 ng/mL (<0.06)
[2020-11-11 06:50] LABS: Bacteria Few HPF (Negative); Crystals Negative HPF (Negative); Epithelial Cells Moderate HPF (Negative); Mucus Trace (Negative); RBC 0-2 HPF (0-2)
[2020-11-11 06:51] LABS: C & S Indicated? No/Sq. Contamination; Casts Negative LPF (Negative)
[2020-11-11] MEDS: Omnipaque 350 MG/ML 100 ML BTL IV (07:07)
--- NOTE | 2020-11-11 07:43 | DI.VRAD_ITS ---
PROCEDURE INFORMATION: Exam: CTA Chest With Contrast Exam date and time: 11/11/2020 6:06 AM Age: 65 years old Clinical indication: Other: Left sided pleuritic chest pain TECHNIQUE: Imaging protocol: Computed tomographic angiography of the chest with contrast. 3D rendering (Not supervised by radiologist): MIP and/or 3D reconstructed images were created by the technologist. Radiation optimization: All CT scans at this facility use at least one of these dose optimization techniques: automated exposure control; mA and/or kV adjustment per patient size (includes targeted exams where dose is matched to clinical indication); or iterative reconstruction. Contrast material: OMNIPAQUE 350; Contrast volume: 50 ml; Contrast route: INTRAVENOUS (IV); COMPARISON: CT CHEST WO 07/24/2020 8:35 AM, chest CT 01/23/2020 FINDINGS: Pulmonary arteries: Apparent filling defect on series 4, image 28 in a proximal right upper lobe branch does not persist on the MIPS images and is likely artifact rather than a nonocclusive PE. No acute pulmonary embolism is visualized. Aorta: Aortic atherosclerotic disease. Lungs: Extensive plugging in right mainstem bronchus extending into the bronchus intermedius and proximal right lower lobe airways. Plugging also noted in proximal left lower lobe airways. This is worrisome for significant aspiration. Severe centrilobular emphysema. Multiple pulmonary nodules are noted, some of which are listed below, with slice references provided on series 4. Irregularly-shaped 8 mm left upper lobe nodule on image 12, new. 10 mm left upper lobe nodule on image 16, stable. 6 mm left upper lobe nodule on image 23, stable. 5 mm left upper lobe nodule on image 44. New 8 mm ground-glass left lower lobe nodule on image 26. N this ew spiculated 1 cm nodule in the right upper lobe on image 16, stable since most recent prior study but enlarged since 01/23/2020. Ill-defined nodular right basilar infiltrate is unchanged. Pleural spaces: Unremarkable. No pneumothorax. No pleural effusion. Heart: Unremarkable. No cardiomegaly. No pericardial effusion. Coronary calcifications Lymph nodes: Unremarkable. No enlarged lymph nodes. Bones/joints: Multilevel spondylosis. Soft tissues: Unremarkable. IMPRESSION: 1. Apparent filling defect on series 4, image 28 in a proximal right upper lobe branch does not persist on the MIPS images and is likely artifact rather than a nonocclusive PE. No acute pulmonary embolism is visualized. 2. Extensive plugging in right mainstem bronchus extending into the bronchus intermedius and proximal right lower lobe airways. Plugging also noted in proximal left lower lobe airways. This is worrisome for significant aspiration. 3. Multiple irregularly-shaped pulmonary nodules as discussed above. Multiple new nodules measuring up to 8 mm. Right upper lobe spiculated pulmonary nodule has increased relative to January 2020. Findings worrisome for malignancy. Further evaluation with a PET-CT is recommended. Alternatively, short-term three-month follow-up with repeat CT can also be considered. 4. Ill-defined nodular right basilar infiltrate is unchanged. 5. Severe emphysema. Dictated and Authenticated by: Klever Christine MD. Ordering:REUBEN Mckinnon MD
[2020-11-11] MEDS: Albuterol 2.5 MG/3 ML INH SOLN VIAL (08:35)
--- NOTE | 2020-11-11 08:51 | PUCON_ITS ---
General Date Of Service Date of service: 11/11/20 Time of Service: 08:30 Requesting physician: Luther Jerez Reason for Consult: Pulmonary nodule Assessment and Plan Assessment and plan (1) COPD (chronic obstructive pulmonary disease): Status: Chronic Qualifiers: COPD type: emphysema Emphysema type: centrilobular Qualified Code(s): J43.2 - Centrilobular emphysema (2) Pulmonary nodules: Status: Acute (3) Bronchiectasis: Status: Acute Assessment and plan: This is a 65-year-old female with COPD, bronchiectasis, and multiple pulmonary nodules who pulmonary was consulted on for abnormal chest CT. From a COPD perspective she is maintained on ICS/LAB A/LAMA therapy. She also undergoes yearly low-dose CAT scans for lung cancer screening given her large smoking history and the fact that she continues to smoke. She also has bronchiectasis with airways thickening on CAT scan and evidence of significant mucus plugging. She is currently not doing any airway clearance but does endorse copious thick yellow mucus production that she coughs out when bending over. She likely is colonized with some sort of bacteria and possibly MAC which could be contributing to her fatigue and weight loss. With respect to her pulmonary nodules it is difficult to compare this expiratory CT PE film with her previous inspiratory low-dose CAT scan completed in July, however it appears as though many of these nodules were present at that time and on previous scans to this. We will need to obtain a repeat inspiratory noncontrasted CAT scan in the future to assess any resolution or growth. I will set her up to be seen by me in approximately 1 month's time. COPD - continue Wixela and Spiriva - smoking cessation - continue albuterol as needed Bronchiectasis - sputum sample obtained today - will test for bacteria and AFB - albuterol inhaler 5 minutes before using VibraPEP - given today. VibraPEP to be used twice a day Pulmonary Nodules - will plan on a repeat scan in 1 month prior to my follow up appointment with her Qualifiers: Bronchiectasis type: uncomplicated Qualified Code(s): J47.9 - Bronchiectasis, uncomplicated History of Present Illness History of Present Illness Chief Complaint: Rib Pain Narrative: This is a 65-year-old female with a history of COPD on Wixela and Spiriva and a as needed albuterol inhaler who presents to the emergency department for rib pain. As part of her evaluation she had a chest CT obtained which showed pulmonary nodules and so pulmonary service was consulted. She undergoes annual low-dose lung cancer screening with her last scan being in July 2020. This scan significant for bilateral upper lobe predominant emphysema, airways thickening, bronchiectasis with evidence of mucous plugging, several nodules including: - QUAN lobulated nodule measuring 1cm by my measurement - QUAN GG nodule 3 mm - RUL 1.1cm solid, spiculated nodule - additional left upper lobe nodules - one is mixed with the solid component measuring 4 mm, one is calcified and 1-2mm, one is solid measuring 6mm, - as well as a RLL nodule that is mixed with the solid component measuring 3mm On the CT scan from today (which was a CT PE and therefore difficult to compare with the previous study) the emphysema, airway thickening, and bronchiectasis with mucous plugging is still present in addition to the following nodules: - QUAN GG nodule is now a solid nodule and increased to 7mm - RUL spiculated nodule stable - QUAN lobulated nodule is stable - QUAN mixed nodule is stable - QUAN solid nodule stable at 6mm - calcified 1-2mm nodule stable - RLL nodule no longer present but a new RLL GG nodule at 5mm present She has approximately a [id number] smoking history and continues to smoke. Her biggest complaint from a pulmonary perspective includes massive sputum production and cough in addition to shortness of breath. She also notes that she has had significant weight loss recently however looking back at her chart this has been ongoing for years. Consults Consult date: 11/11/20 Review of Systems All systems reviewed & are unremarkable except as noted in HPI and below PFSH Medical History COPD (chronic obstructive pulmonary disease) Fx femur shaft-open 2759. Tobacco use Social History Smoking/Tobacco Use Status: Current every day Tobacco Type: cigarettes Smoking risk assessment performed?: Yes Alcohol Intake: never Drug use: Never Substance use type: does not use Do you feel safe at home: Yes Do you feel safe in your relationship?: Yes Visit Medication and Allergies Active Medications Generic Name Dose Route Start Last Admin Trade Name Freq PRN Reason Stop Dose Admin Albuterol Sulfate 5 mg 11/11/20 08:30 Albuterol 5 Mg/Ml Inh Soln [facility]PD [facility] IV Miscellaneous Supplies 1 each 11/11/20 06:00 Iv Access IV DIRECTED ROGELIO Iohexol 100 ml 11/11/20 07:15 11/11/20 07:07 Omnipaque 350 Mg/Ml 100 Ml Btl IV 12/11/20 23:59 50 ml DIRECTED ROGELIO Administration Sodium Chloride 0 ml 11/11/20 05:49 Normal Saline Flush 10 Ml Syr IVP PRN PRN Allergies No Known Allergies Allergy (Unverified 11/11/20 05:58) Exam Const General: no acute distress Nutritional Appearance: cachectic [facility] Head: normocephalic Ears: external ears normal and no periauricular adenopathy General nose exam: nasal mucous membranes and turbinates normal Face and sinus: sinuses nontender Mouth: oropharynx normal and moist mucous membranes Teeth and gingiva: dentition normal Eyes General: appearance normal, both eyes and all related structures Pupils: PERRL Neck Neck: normal visual inspection and no lymphadenopathy Chest Chest: normal inspection of the chest Resp Effort & Inspection: normal respiratory effort Auscultation: clear to auscultation bilaterally, no rales, rhonchi and no wheezes Cardio Rate: regular rate Rhythm: regular rhythm Heart Sounds: S1 normal, S2 normal and no murmurs Pulses: radial pulses present bilaterally GI Inspection: normal to inspection Palpation: soft Skin General skin exam: no rashes or lesions noted Neuro General: patient alert, patient awake and patient oriented x3 Extrem General: no clubbing, cyanosis or edema Psych Mental Status: mental status grossly normal Affect: normal affect Attitude: cooperative Results Last Vital Signs Temp 36.8 C 11/11/20 05:52 Pulse 89 11/11/20 08:41 Resp 18 11/11/20 08:41 BP 117/70 11/11/20 07:45 Pulse Ox 96 11/11/20 08:41 Labs Result diagrams: 11/11/20 06:13 11/11/20 06:13 Labs: Laboratory Results - last 24 hr 11/11/20 11/11/20 11/11/20 06:13 06:13 06:13 WBC 8.91 RBC 4.39 Hgb 13.7 Hct 42.2 MCV 96.1 H MCH 31.2 MCHC 32.5 RDW 12.5 Plt Count 195 MPV 10.2 Immature Gran % 0.2 Neutrophils % 69.8 Lymphocytes % 18.5 Monocytes % 9.1 Eosinophils % 2.0 Basophils % 0.4 Nucleated RBC % 0 Absolute Neutrophils 6.21 Absolute Lymphocytes 1.65 Absolute Monocytes 0.81 H Absolute Eosinophils 0.18 Absolute Basophils 0.04 Sodium 140 Potassium 4.0 Chloride 104 Carbon Dioxide 30.0 Anion Gap 6.0 BUN 13 Creatinine 0.8 Estimated GFR/1.73 m2 >= 60.00 Glucose 98 Calcium 9.5 Magnesium 2.0 Total Bilirubin 0.5 Conjugated Bilirubin 0.2 AST 25 ALT 31 Alkaline Phosphatase 112 Troponin I < 0.05 Total Protein 7.9 Albumin 3.7 Lipase 80 Urine Color Urine Clarity Urine pH Ur Specific Hamilton Urine Protein Urine Ketones Urine Blood Urine Nitrite Urine Bilirubin Urine Urobilinogen Ur Leukocyte Esterase Urine RBC Urine WBC Ur Epithelial Cells Urine Crystals Urine Bacteria Urine Casts Urine Mucus Ur Culture Indicated? Urine Glucose 11/11/20 06:35 WBC RBC Hgb Hct MCV MCH MCHC RDW Plt Count MPV Immature Gran % Neutrophils % Lymphocytes % Monocytes % Eosinophils % Basophils % Nucleated RBC % Absolute Neutrophils Absolute Lymphocytes Absolute Monocytes Absolute Eosinophils Absolute Basophils Sodium Potassium Chloride Carbon Dioxide Anion Gap BUN Creatinine Estimated GFR/1.73 m2 Glucose Calcium Magnesium Total Bilirubin Conjugated Bilirubin AST ALT Alkaline Phosphatase Troponin I Total Protein Albumin Lipase Urine Color Yellow Urine Clarity Clear Urine pH 7.0 Ur Specific Hamilton 1.020 Urine Protein Trace H Urine Ketones Negative Urine Blood Trace-intact H Urine Nitrite Negative Urine Bilirubin Negative Urine Urobilinogen 0.2 Ur Leukocyte Esterase Negative Urine RBC 0-2 Urine WBC 3-5 Ur Epithelial Cells Moderate Urine Crystals Negative Urine Bacteria Few Urine Casts Negative Urine Mucus Trace Ur Culture Indicated? No/Sq. Contamination Urine Glucose Negative
[2020-11-11 09:40] LABS: Troponin I < 0.05 ng/mL (<0.06)
--- NOTE | 2020-11-14 18:13 | W.ED.FU ---
Follow Up Plan: sputum grew strep pneumoniae. I called and spoke with patient and she states she feels great and has no symptoms now, no fevers or cough, suspect possible contaminant and will hold on abx now. I did advise to return if she has dyspnea, fevers or worsening cough
== END 2020-11-11 09:57 | disposition home or self-care (01) ==
PROVIDERS: Emergency Medicine; Emergency Provider Emergency Medicine; PCP Nurse Practitioner Family
DX: R07.82 Intercostal pain (principal); R91.8 Other nonspecific abnormal finding of lung field; J44.9 Chronic obstructive pulmonary disease, unspecified; F17.210 Nicotine dependence, cigarettes, uncomplicated
CPT/HCPCS: 36415; 71275; 80053; 83690; 87077; 87116; 87206; 93005; 94640; 99285; 81003; 81015; 82248; 83735; 84484; 85025; 87070; 87186; 87205; 93010; 94667; J3490; J7613

== ENCOUNTER 2020-11-19 10:31 | Outpatient (REF) | payer OTHER, SELFPAY ==
--- NOTE | 2020-11-19 10:00 | PAPFT_PTH ---
PATIENT: Sandy Hernández LOC: [facility] U#:[id number] AGE/SX: 65/F ROOM: RE11/19/[address]: DAVID Hernandez : 1955 BED: DIS: 11/19/2020 SPEC #: [id number] RECD: 11/19/20 12:50 STATUS: ENA REQ #: [id number] IKER: 11/19/20 10:[address]: Modesta Gar DEPT: [facility] Cytology RECD BY: Chiquis Veras ENTERED: 11/19/20 12:50 SP TYPE: PAPFT OTHR DR: Danay Mckeon Tissues: 1 - CX/ENDOCX FOR PAP SMEARS Procedures: PAP THIN PREP/UVM Screening HPV DNA PROBE Comments: [id number]
== END 2020-11-19 10:32 | disposition home or self-care (01) ==
LOC: LBN 10:31
PROVIDERS: PCP Nurse Practitioner Family; Visit Provider Nurse Practitioner Family
DX: Z12.4 Encounter for screening for malignant neoplasm of cervix (principal); Z87.410 Personal history of cervical dysplasia; Z01.419 Encounter for gynecological examination (general) (routine) without abnormal findings; Z11.51 Encounter for screening for human papillomavirus (HPV); R87.613 High grade squamous intraepithelial lesion on cytologic smear of cervix (HGSIL); B97.7 Papillomavirus as the cause of diseases classified elsewhere; Z86.001 Personal history of in-situ neoplasm of cervix uteri
CPT/HCPCS: 88142; 87624

== ENCOUNTER → 2020-12-09 02:17 | Outpatient (CLI) | payer OTHER, SELFPAY ==
--- NOTE | 2020-12-09 08:56 | DI.CT_ITS ---
Exam(s) CT CHEST WO EXAM: CT CHEST WO CLINICAL HISTORY: f/u pulmonary nodules,R91.8. TECHNIQUE: Imaging protocol: Axial computed tomography images were obtained and coronal and sagittal reformatted images were created and reviewed. COMPARISON: CT CT CHEST WO from 07/24/[address] CHEST WO from 07/24/[address] CHEST PE CTA from 11/11/[address] CHEST PE CTA from 11/11/2020 FINDINGS: Tracheobronchial tree: Patent where visualized. Pulmonary parenchyma: No consolidation or dominant measurable mass. Moderate centrilobular and parase ptal emphysematous changes are present. There is stable scarring in the right upper lobe. There are calcified granulomas present. The 5 mm pulmonary nodule in the left lingula and the 5 mm area of no dularity in the left upper lobe are stable. These were new on the examination from 11/11/2020 compared to 07/24/2020. There is a stable 1 cm nodule in the left upper lobe. A stable small ground-glass in filtrate is seen in the lateral aspect of the left upper lobe. There are no new pulmonary nodule sin ce 11/11/2020. Mediastinum and Beatriz: No dominant adenopathy or fluid collection. Pleura: No effusion or pneumothorax. Heart: The heart is not dilated. Coronary artery calcification is present. No pericardial effusion. Aorta: Thoracic aorta non-dilated. Atherosclerosis. Upper abdomen: Status post cholecystectomy. Left nephrolithiasis. There is a 6 mm nonobstructing l eft renal stone. Lymph nodes: Within normal limits. Soft tissues: Unremarkable. Bones:Within normal limits for the patient's age. IMPRESSION: 1. Stable pulmonary nodules since 11/11/2020. 2. Moderate centrilobular and paraseptal emphysema. RADIATION DOSE DELIVERED: 268.27mGy.cm Total DLP 268.27mGy.cm Total DLP DATA REPOSITORY: All CT scans at this facility are submitted to the National Radiology Data Registry (NRDR) Dose Index Registry (DIR) with the [employer] ([employer]). RADIATION OPTIMIZATION: All CT scans at this facility use at least one of these dose optimization te chniques: automated exposure control; mA and/or kV adjustment per patient size (includes targeted exa ms where dose is matched to clinical indication); or iterative reconstruction.
== END ==
PROVIDERS: PCP Nurse Practitioner Family; Visit Provider Student in an Organized Health Care Education/Training Program
DX: R91.8 Other nonspecific abnormal finding of lung field (principal); J43.2 Centrilobular emphysema
CPT/HCPCS: 71250

== ENCOUNTER 2020-12-24 02:07 | Outpatient (CLI) | payer MEDICARE, SELFPAY ==
--- NOTE | 2020-12-24 | DI.MAMMO_ITS ---
Exam(s) MAMMO SCREENING EXAM: MAMMO SCREENING CLINICAL HISTORY: SCREENING, Z12.39 TECHNIQUE: Mammograms were interpreted according to the usual protocol including computer analysis w [employer] CAD system, tomosynthesis and C-view imaging. COMPARISON: 2011 through 2019 FINDINGS: The breasts are composed of heterogeneously dense fibroglandular densities, Breast Density category C . increase in bilateral breast density and blast size, consistent with significant weight loss. No suspicious masses or suspicious microcalcifications are seen. Coarse, benign bilateral calcificat ions No skin thickening or abnormal axillary lymph nodes are seen. There has been no significant change from prior exams. IMPRESSION: BI-RADS Cat 2 - Benign Findings Yearly screening mammography is recommended. Breast Density Category C, heterogeneously Dense. The mammogram demonstrates the patient's breast tissue is dense. Dense breast tissue is very common a nd is not abnormal but dense breast tissue can make it harder to find cancer on a mammogram. Also, de nse breast tissue may increase breast cancer risk. This information about the result of the mammogram report was provided to the patient to raise their awareness. Use this report when you speak with the patient about their risks for breast cancer, which includes their family history. At that time, you may recommend additional screening tests (Ultrasound or MRI) as they might be useful based on their r isk. A negative radiographic report should not delay biopsy if a dominant or clinically suspicious mass is present. Up to ten percent of cancers are not identified on mammography. A negative report may reinforce clinical impression. Adenosis and dense breasts may obscure an underlying neoplasm. False positive reports average 6 to 10%.
--- NOTE | 2020-12-24 15:23 | DI.DEXA_ITS ---
Exam(s) XR DEXA BONE DENSITY W/WO JOHNATHAN EXAM: XR DEXA BONE DENSITY W/WO JOHNATHAN CLINICAL HISTORY: SCREENING FOR OSTEOPOROSIS, Z78.0 TECHNIQUE: FINDINGS: DEXA scan was performed according to the usual protocol. Please see the accompanying sheets. Findings for right hip scanning are T-score -3.6 with right femoral neck T-score -3.1. Lumbar spine scanning shows T-score minus 1.4. Previous examination of August 2015 showed lumbar T-sco re -0.1. Right forearm scanning shows T-score -3.5. Prior examination of June 2009 showed forearm T-score -1 .5. IMPRESSION: The findings are consistent with osteoporosis according to the WHO criteria. The lateral vertebral scanogram shows no evidence of a vertebral compression fracture. RADIATION DOSE DELIVERED: Total DLP
== END 2020-12-24 02:27 ==
PROVIDERS: PCP Nurse Practitioner Family; Visit Provider Nurse Practitioner Family
DX: Z78.0 Asymptomatic menopausal state (principal); Z12.31 Encounter for screening mammogram for malignant neoplasm of breast; M81.0 Age-related osteoporosis without current pathological fracture; R92.8 Other abnormal and inconclusive findings on diagnostic imaging of breast
CPT/HCPCS: 77063; 77067; 77080

== ENCOUNTER 2021-01-04 08:49 | Outpatient (REF) | payer MEDICARE, SELFPAY ==
--- NOTE | 2021-01-04 08:30 | CER_PTH ---
PATIENT: Sandy Hernández LOC: [facility] U#:[id number] AGE/SX: 65/F ROOM: RE01/04/[address]: Chelsey Cuellar : 1955 BED: DIS: 01/04/2021 SPEC #: [id number] RECD: 01/04/21 12:46 STATUS: ENA KUHN #: [id number] IKER: 01/04/21 08:[address]: Chelsey Cuellar DEPT: Surgical Specimen RECD BY: Chiquis Veras ENTERED: 01/04/21 12:48 SP TYPE: NEW OTTO DR: Danay Mckeon Tissues: 1 - CERVICAL BIOPSY 2 - ENDOCERVICAL BX/CURRETTE Procedures: GROSS AND MICRO LEVEL 4 Comments: [id number]
== END 2021-01-04 08:50 | disposition home or self-care (01) ==
LOC: LBN 08:49
PROVIDERS: PCP Nurse Practitioner Family; Visit Provider Obstetrics & Gynecology Gynecology
DX: N87.1 Moderate cervical dysplasia
CPT/HCPCS: 88305

== ENCOUNTER 2021-02-08 02:55 | Outpatient (CLI) | payer MEDICARE, SELFPAY ==
[2021-02-08 10:46] LABS: Source Nasal/Nares
[2021-02-08 13:34] LABS: COVID-19 PCR Negative (Negative)
== END 2021-02-08 02:56 | disposition home or self-care (01) ==
LOC: LBO 02:56
PROVIDERS: PCP Nurse Practitioner Family; Visit Provider Obstetrics & Gynecology Gynecology
DX: Z20.822 Contact with and (suspected) exposure to COVID-19 (principal); Z01.818 Encounter for other preprocedural examination
CPT/HCPCS: 87635

== ENCOUNTER 2021-02-08 02:57 | Outpatient (CLI) | payer MEDICARE, SELFPAY ==
[2021-02-08 09:04] LABS: HCT 41.5 % (36.0-46.0); HGB 13.2 g/dL (11.2-15.7); MCH 31.1 pg (27.0-33.0); MCHC 31.8 % (32.0-36.0); MCV 97.9 fL (80-95); MPV 10.2 fL (8.0-11.0); Platelet Count 232 10^3/uL (130-400); RBC 4.24 10^6/uL (3.93-5.22); RDW 12.3 % (11.7-14.6); RDW-SD 44.1 fL; WBC 8.19 10^3/uL (4.4-10.8)
[2021-02-08 10:12] LABS: ALT 26 U/L (14-59); AST 23 U/L (15-37); Albumin 3.7 g/dL (3.4-5.0); Alkaline Phosphatase 110 U/L (46-116); Anion Gap 7.7 mmol/L (3-11); BUN 17 mg/dL (7-18); Bilirubin, Total 0.5 mg/dL (0.2-1.0); CO2 31.3 mmol/L (21.0-32.0); CREATININE 0.7 mg/dL (0.55-1.02); Calcium 9.9 mg/dL (8.5-10.1); Chloride 101 mmol/L (98-107); Glucose 153 mg/dL (74-106); Potassium 4.3 mmol/L (3.5-5.1); Sodium 140 mmol/L (136-145); Total Protein 8.2 g/dL (6.4-8.2)
== END 2021-02-08 02:58 | disposition home or self-care (01) ==
LOC: LBO 02:57
PROVIDERS: PCP Nurse Practitioner Family; Visit Provider Obstetrics & Gynecology Gynecology
DX: Z01.818 Encounter for other preprocedural examination (principal)
CPT/HCPCS: 36415; 80053; 85027; 86850; 86900; 86901

== ENCOUNTER 2021-02-10 06:09 | Day surgery (SDC) | payer MEDICARE, SELFPAY ==
[2021-02-10 06:34] VITALS: BP 114/77; PULSE 94; RESP 20; TEMP 36.3; O2SAT 95
--- NOTE | 2021-02-10 07:09 | W.ANESPRE ---
General Info Date of Service Date Performed: 02/10/21 Height: 5 ft 4 in Weight: 39.8 kg Body Mass Index (BMI): 15.0 Surgical Procedure: Operation Date: 02/10/21 07:40 Proposed Procedures Side Surgeon p Cold [facility] Chelsey Cuellar MD Meds Allergies and Home Medications Allergies Allergy/AdvReac Type Severity Reaction Status Date / Time No Known Allergies Allergy Unverified 02/10/21 06:45 Home Medication Medication Instructions Recorded Glucosamine Sulf-Chondroitin 1 ea PO DAILY 11/20/12 Spiriva with HandiHaler 1 puff INHALATION DAILY 11/20/12 oxybutynin chloride 10 mg PO DAILY 02/13/14 [id number] oil-vit D3 1 ea PO DAILY 05/12/14 albuterol sulfate [Ventolin HFA] 2 puff INHALATION .Q4-6H PRN PRN 01/26/17 cetirizine 10 mg PO DAILY 11/11/20 fluticasone propion-salmeterol 2 inh INHALATION PRN PRN 11/11/20 [Wixela Inhub] mirtazapine 7.5 mg PO DAILY 11/11/20 omeprazole 20 mg PO DAILY 11/11/20 zaleplon 10 mg PO HS 11/11/20 guaifenesin 600 mg tablet, 600 mg PO BID 11/19/20 extended release 12 hr Current Visit Medications: Current Medications Generic Name Dose Route Start Last Admin Trade Name Freq PRN Reason Stop Dose Admin Ringer's Solution 1,000 mls @ 125 mls/hr 02/10/21 06:00 IV 03/11/21 23:59 INFUSION ROGELIO IV Miscellaneous Supplies 1 each 02/10/21 06:00 Iv Access IV 03/11/21 23:59 DIRECTED ROGELIO Sodium Chloride 0 ml 02/10/21 06:00 Normal Saline Flush 10 Ml Syr IV 03/11/21 23:59 PRN PRN Sodium Chloride 0 ml 02/10/21 06:00 Normal Saline 10 Ml Vial IJ 03/11/21 23:59 DIRECTED PRN Sterile Water 0 ml 02/10/21 06:00 Water,Injection,Sterile 10 Ml Vial IJ 03/11/21 23:59 DIRECTED PRN PFSH Active Problems Active Problems: Problem Status Onset Code Femur fracture, left S72.92XA Hypotension I95.9 DVT prophylaxis [id number] Discharge planning issues Z02.9 HSIL (high grade squamous intraepithelial lesion) on Pap smear of cervix R87.613 STAR II (cervical intraepithelial neoplasia II) 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 S/P LEEP Z98.890 COPD (chronic obstructive pulmonary disease) J44.9 Tobacco use Z72.0 Central perforation of tympanic membrane, right ear H72.01 Chest pain R07.9 Pulmonary nodules R91.8 Bronchiectasis J47.9 Nicotine dependence, cigarettes, uncomplicated F17.210 Preop examination Z01.818 Medical History Active Problem List Hypotension (Acute) DVT prophylaxis (Acute) Discharge planning issues (Acute) HSIL (high grade squamous intraepithelial lesion) on Pap smear of cervix (Acute) STAR II (cervical intraepithelial neoplasia II) (Acute) S/P LEEP (Acute) COPD (chronic obstructive pulmonary disease) (Chronic) Tobacco use (Acute) Central perforation of tympanic membrane, right ear (Acute) Chest pain (Acute) Pulmonary nodules (Acute) Bronchiectasis (Acute) Nicotine dependence, cigarettes, uncomplicated (Acute) Preop examination (Acute) Medical History Fx femur shaft-open 2918. Surgical History Surgical History (Updated 02/10/21 @ 06:48 by Darline Fleming) History of back surgery Hx of appendectomy Hx of cholecystectomy Tobacco Smoking/Tobacco Use Status: Current every day Tobacco Type: cigarettes Alcohol Alcohol Intake: never Substance Use Substance use: Socially Substance use type: marijuana Vital Signs and Lab Results Vital Signs Most Recent Vital Signs in EMR: Most Recent Vital Signs Temp Pulse Resp BP Pulse Ox 36.3 C L 94 H 20 114/77 95 02/10/21 06:34 02/10/21 06:34 02/10/21 06:34 02/10/21 06:34 02/10/21 06:34 Lab Results Blood Type / Crossmatch: Patient ABO/Rh A Positive 02/08/21 08:55 02/08/21 Antibody Screen NEGATIVE 02/08/21 08:55 02/08/21 Complete Blood Count: White Blood Count 8.19 10^3/uL (4.4-10.8) 02/08/21 08:55 02/08/21 Red Blood Count 4.24 10^6/uL (3.93-5.22) 02/08/21 08:55 02/08/21 Hemoglobin 13.2 g/dL (11.2-15.7) 02/08/21 08:55 02/08/21 Hematocrit 41.5 % (36.0-46.0) 02/08/21 08:55 02/08/21 Platelet Count 232 10^3/uL (130-400) 02/08/21 08:55 02/08/21 Complete Metabolic Panel: Sodium Level 140 mmol/L (136-145) 02/08/21 08:55 02/08/21 Potassium Level 4.3 mmol/L (3.5-5.1) 02/08/21 08:55 02/08/21 Chloride Level 101 mmol/L (98-107) 02/08/21 08:55 02/08/21 Carbon Dioxide Level 31.3 mmol/L (21.0-32.0) 02/08/21 08:55 02/08/21 Blood Urea Nitrogen 17 mg/dL (7-18) 02/08/21 08:55 02/08/21 Creatinine 0.7 mg/dL (0.55-1.02) 02/08/21 08:55 02/08/21 Estimated GFR/1.73 m2 >= 60.00 (mL/min/1.73m2) 02/08/21 08:55 02/08/21 Calcium Level 9.9 mg/dL (8.5-10.1) 02/08/21 08:55 02/08/21 Albumin 3.7 g/dL (3.4-5.0) 02/08/21 08:55 02/08/21 Glucose Level 153 mg/dL (74-106) H 02/08/21 08:55 02/08/21 Liver Function Panel: Alanine Aminotransferase (ALT/SGPT) 26 U/L (14-59) 02/08/21 08:55 02/08/21 Aspartate Amino Transf (AST/SGOT) 23 U/L (15-37) 02/08/21 08:55 02/08/21 Coagulation Panel: No Data to Display Cardiac Panel: No Data to Display Arterial Blood Gas: No Data to Display Venous Blood Gas: No Data to Display Pancreas Panel: No Data to Display Thyroid Panel: No Data to Display Infectious Disease: Coronavirus (COVID-19)(PCR) Negative (Negative) 02/08/21 09:30 02/08/21 Coronavirus 2019 Source Nasal/Nares 02/08/21 09:30 02/08/21 Blood Cultures: No Data to Display Toxicology Panel: No Data to Display Anesthesia Assessment and Plan Anesthesia History Personal History: No History of Anesthesia Complications Family History: No Family History of Anesthesia Complications Exercise Tolerance Exercise Tolerance: Metabolic Equivalents<4 Pertinent Negatives Pertinent Negatives: No Symptoms of GERD (Well controlled with Omeprazole), No Major Cardiovascular Symptoms or Complaints, No Major Pulmonary Symptoms or Complaints (COPD/emphysema breathing feels good today) and No History of CVA/TIA Cardiac & Pulmonary Exam Cardiac Exam: Normal S1/S2 Heart Sounds Pulmonary Exam: Clear Bilateral Breath Sounds and Active Dry Cough Implantable Cardiac Device Does patient have a Pacemaker or an ICD?: No Airway Exam Known Difficult Airway: No Mallampati Class: 1 Mouth Opening: Normal (> 3cm) Thyromental Distance: Greater than 3 cm Neck Range of Motion: Full ROM Neck Circumference: Normal Teeth Condition: Removable Dentures/Plates Upper and Removable Dentures/Plates Lower ASA Classification ASA Score: ASA 3 Emergency Case?: No NPO Status NPO Status: NPO Clears >2 hours, Solids >8 hours Anesthesia Plan Resuscitation Status: Full Code Anesthesia Technique: General Anesthesia Airway Planned: Natural Airway Monitors Used: Standard Monitors
[2021-02-10] MEDS: Lactated Ringers 1,000 ML 125 ML IV (07:11)
[2021-02-10 07:14] VITALS: BMI 15.0
[2021-02-10] MEDS: Bupivacaine 0.25% Pres-Free 30 ML VIAL (07:50)
--- NOTE | 2021-02-10 07:54 | CER_PTH ---
PATIENT: Sandy Hernández LOC: [facility] U#:[id number] AGE/SX: 65/F ROOM: RE02/10/[address]: Chelsey Cuellar : 1955 BED: DIS: 02/10/2021 SPEC #: [id number] RECD: 02/10/21 12:44 STATUS: ENA KUHN #: [id number] IKER: 02/10/21 07:[address]: Chelsey Cuellar DEPT: Surgical Specimen RECD BY: Chiquis Veras ENTERED: 02/10/21 12:46 SP TYPE: CER OTHR DR: Danay Mckeon Tissues: 1 - CERVICAL CONE BX Procedures: GROSS AND MICRO LEVEL 5 Comments: [id number]
[2021-02-10 08:10] VITALS: BP 121/70; PULSE 81; RESP 22; TEMP 36.1; O2SAT 93
--- NOTE | 2021-02-10 08:10 | W.ANESPOSTOP ---
Postoperative Evaluation Date, Time and Location Date Performed: 02/10/21 Time Performed: 08:10 Patient Location: Day Surgery Unit Vital Signs Most Recent Imported Vital Signs: Most Recent Vital Signs Temp Pulse Resp BP Pulse Ox 36.3 C L 94 H 20 114/77 95 02/10/21 06:34 02/10/21 06:34 02/10/21 06:34 02/10/21 06:34 02/10/21 06:34 Most Recent Manually Entered Vital Signs: Adult Blood Pressure: 121/70 Heart Rate: 68 Respirations: 10 Oxygen Saturation (%): 98 Temperature (C): 36.1 C Pain Score (0-10 Scale): 0 Pain Score Most Recent Pain Score: Most Recent Pain Score Pain Level 0 02/10/21 06:34 Assessment Mental Status: Awake (Alert & Oriented to Patient Baseline) Airway and Respiratory Function: Patent airway with normal (patient baseline) respiratory exam Cardiovascular Function: Hemodynamically Stable Hydration Status: Adequately Hydrated Nausea & Vomiting: No Nausea or Vomiting Pain: Pt. Denies Any Pain Peripheral Nerve Block: Patient did not receive a nerve block
[2021-02-10 08:12] VITALS: BP 121/70; PULSE 68; RESP 10; TEMPC 36.1; O2SAT 98
--- NOTE | 2021-02-10 08:19 | W.PM.DSUDISC ---
Discharge Plan Disposition Patient Disposition: HOME Condition: Stable Discharge Details Attending Provider: Chelsey Cuellar Primary Care Provider: Danay Mckeon Home Meds and New Rx's Prescriptions: No Action guaifenesin [Mucinex] 600 mg tablet extended release 12hr 600 mg PO BID RF: 0 oxybutynin chloride 5 MG tablet 10 mg PO DAILY RF: 0 [id number]-epa-fish oil-vit D3 1 EACH capsule 1 ea PO DAILY RF: 0 Spiriva with HandiHaler 18 MCG capsule, w/inhalation device 1 puff Inhalation DAILY RF: 0 Glucosamine Sulf-Chondroitin 1 EACH capsule 1 ea PO DAILY RF: 0 albuterol sulfate [Ventolin HFA] 200 PUFF HFA aerosol inhaler 2 puff Inhalation .Q4-6H PRN PRNRF: 0 fluticasone propion-salmeterol [Wixela Inhub] 500-50 mcg/dose blister with device 2 inh INHALATION PRN PRNRF: 0 zaleplon 10 mg capsule 10 mg PO HS RF: 0 cetirizine 10 mg tablet 10 mg PO DAILY RF: 0 omeprazole 20 mg capsule,delayed release(DR/EC) 20 mg PO DAILY RF: 0 mirtazapine 7.5 mg tablet 7.5 mg PO DAILY RF: 0 Discharge Instructions Additional Instructions: return to the office in 4weeks for inspection of surgical site. Nothing in the vagina, until post op visit. You may shower. Avoid baths for 2 weeks. You will have yellow, brown vaginal discharge for 1-2 weeks. Call the office if you have bright red period like bleeding. Stand Alone Forms: Anesthesia Discharge Inst[facility] Post Gynecology Surgery, Franky Crouch ([facility]) Activity:: Activity as Tolerated Diet:: As Tolerated Discharge Orders Discharge Orders: Discharge Order (Routine); Ordered 02/10/21 Ordered By: Chelsey Cuellar DS: Diagnosis Discharge Diagnosis (1) STAR II (cervical intraepithelial neoplasia II): Status: Acute (2) H/O cone biopsy of cervix: Status: Acute
[2021-02-10 08:45] VITALS: BP 117/86; PULSE 85; RESP 18; TEMP 36.7; O2SAT 94
--- NOTE | 2021-02-10 17:02 | W.PM.OP ---
Date of service: 02/10/21 Time of Service: 17:03 Operative Note Operative Note DATE OF PROCEDURE: 02/10/21 PRE-OP DIAGNOSIS: persistent CIN2 POST-OP DIAGNOSIS: same PROCEDURE: Conization of cervix SURGEON: Chelsey Cuellar ANESTHESIA TYPE: General:No Airway Refer to Anesthesia Record ESTIMATED BLOOD LOSS: 0 PATHOLOGY: other (Conization specimen to pathology) COMPLICATIONS: None Patient was transported to: same day Patient's condition: stable Indications: 65yo female with history of persistently abnormal Pap/HPV tests since 2019. She has undergone two LEEP procedures in the [facility] office. Her most recent Pap test reported as HGSIL which was confirmed by colposcopy performed 01/04/21. Final pathology report returned with STAR-2 in the endocervical canal. Patient was reluctant to undergo hysterectomy but is comfortable proceeding with a cold knife conization in the OR. Findings: Atrophic vaginal perez. Attenuated cervix surface with external os patent. Procedure Description: Patient was taken to the operating room where she was placed in the dorsal supine position and general anesthesia was administered without difficulty. She was then placed in the dorsal lithotomy position in [facility] in a neurologically neutral position. She was then prepped, and draped in the usual sterile fashion. Surgical timeout was performed. Arthur speculum was placed into the vagina and the body of the cervix in proximity to the external os was infiltrated with 2 cc of 1% Lidocaine Epinephrine in a circumferential fashion. A single-tooth tenaculum was then used to grasp and hold the anterior lip of the cervix. A paracervical block was performed with 4 cc of quarter percent Marcaine without Epinephrine injected into the 4 and 8:00 paracervical spaces respectively. A uterine sound was introduced into the ectocervical canal and a scalpel with a #11 blade was used to make a 360 degree cone specimen on the outside of the uterine sound. The uterine sound was then removed and apex of the cone specimen was detached from the endocervical canal and passed off of the operative field. There was minimal bleeding. Monsel's paste was placed on the operative site with excellent hemostatic results. All instruments were removed from the vagina after the tenaculum site and the cone specimen bed were noted to be hemostatic. Patient was placed in the dorsal supine position, awakened and transported to recovery area in stable condition. All sponge lap needle counts correct x2.
== END 2021-02-10 09:12 | disposition home or self-care (01) ==
PROVIDERS: PCP Nurse Practitioner Family; Visit Provider Obstetrics & Gynecology Gynecology
PROC: 0UB97ZZ Excision of Uterus, Via Natural or Artificial Opening (ICD-10-PCS; CPT 57520; principal; 2021-02-10 07:30)
DX: N87.1 Moderate cervical dysplasia (principal); J44.9 Chronic obstructive pulmonary disease, unspecified; F17.210 Nicotine dependence, cigarettes, uncomplicated
CPT/HCPCS: 57520; 88307; J2001

== ENCOUNTER 2021-03-22 04:45 | Outpatient (CLI) | payer MEDICARE, SELFPAY | END 2021-03-22 04:46 | disposition home or self-care (01) | LOC: RT 04:45 | PROVIDERS: PCP Nurse Practitioner Family; Visit Provider Student in an Organized Health Care Education/Training Program | DX: J44.9 Chronic obstructive pulmonary disease, unspecified (principal) | CPT/HCPCS: 94618 ==

== ENCOUNTER 2021-07-16 12:10 | Emergency (ER) | payer MEDICARE, SELFPAY ==
[2021-07-16] VITALS (38 sets, daily range): BP systolic 100–133; BP diastolic 55–74; PULSE 85–113; RESP 15–28; TEMP 37.7–38; O2SAT 91–96
--- NOTE | 2021-07-16 12:15 | RT.EKG_ITS ---
APPROVED REPORT Exam: Resting ECG Reason for Exam: SOB Patient Location: E HR:108 bpm ECG Measurements Heart Rate 108 AXIS NE 132 P 45 QRSd 76 QRS 28 QT 316 T 64 QTc 424 Conclusion Sinus tachycardia Nonspecific ST changes
--- NOTE | 2021-07-16 12:30 | DI.RAD_ITS ---
Exam(s) XR PORTABLE CHEST AP EXAM: XR PORTABLE CHEST AP CLINICAL HISTORY: cough, fever. TECHNIQUE: 2D digital imaging was performed. COMPARISON: CR XR CHEST 2V PA LATERAL from 09/17/2018 FINDINGS: Single AP portable view. Heart size is normal. Bilateral hyperinflation COPD changes are noted. No new left lung infiltrates nor pleural effusions. Increased markings right lower lobe noted. IMPRESSION: Probable right lower lobe infiltrate.Superimposed upon COPD findings-hyperinflation. DATA REPOSITORY: RADIATION DOSE DELIVERED: All CT scans at this facility use at least one of these dose optimization techniques: automated exposure control; mA and/or kV adjustment per patient size (includes targeted e xams where dose is matched to clinical indication); or iterative reconstruction.
[2021-07-16 13:32] LABS: Lactate 0.9 mmol/L (0.6-1.4)
[2021-07-16 13:34] LABS: Absolute Basophil Count 0.02 10^3/uL (0.0-0.2); Absolute Lymphocyte Count 0.41 10^3/uL (1.2-3.4); Absolute Monocyte Count 0.67 10^3/uL (0.1-0.8); Absolute Neutrophil Count 3.34 10^3/uL (1.2-6.7); Basophils % 0.5; HCT 40.5 % (36.0-46.0); HGB 13.3 g/dL (11.2-15.7); Lymphocytes % 9.2; MCH 31.4 pg (27.0-33.0); MCHC 32.8 % (32.0-36.0); MCV 96 fL (80-95); MPV 10.8 fL (8.0-11.0); Monocytes % 15.1; Neutrophils % 75.2; Platelet Count 137 10^3/uL (130-400); RBC 4.24 10^6/uL (3.93-5.22); RDW 13.3 % (11.7-14.6); WBC 4.44 10^3/uL (4.4-10.8)
[2021-07-16] MEDS: Acetaminophen 325 MG TAB 650 MG PO (13:37)
[2021-07-16] MEDS: Normal Saline 500 ML IV ×2 (13:37→14:37)
[2021-07-16 13:39] LABS: Bilirubin Negative (Negative); Blood Trace-intact (Negative); Clarity Clear (Clear); Glucose Negative (Negative); Ketones Negative (Negative); Leukocyte Esterase Negative (Negative); Nitrite Negative (Negative); Urobilinogen 0.2 EU/dL (Up TO 0.2)
[2021-07-16 13:49] LABS: Bacteria Rare HPF (Negative); C & S Indicated? No; Casts 0-2 Coarse Granular LPF (Negative); Crystals Rare Amorphous HPF (Negative); Epithelial Cells Rare HPF (Negative); Mucus Trace (Negative); WBC 0-2 HPF (0-5)
[2021-07-16 13:51] LABS: ALT 32 U/L (14-59); AST 29 U/L (15-37); Albumin 3.9 g/dL (3.4-5.0); Alkaline Phosphatase 123 U/L (46-116); Anion Gap 7.8 mmol/L (3-11); BUN 14 mg/dL (7-18); Bilirubin, Total 0.3 mg/dL (0.2-1.0); CO2 29.2 mmol/L (21.0-32.0); CREATININE 0.8 mg/dL (0.55-1.02); Calcium 9.1 mg/dL (8.5-10.1); Chloride 98 mmol/L (98-107); Glucose 97 mg/dL (74-106); Lipase 64 U/L (73-393); NT-proBNP 414 pg/mL (<300); Potassium 4.2 mmol/L (3.5-5.1); Sodium 135 mmol/L (136-145); Total Protein 8.5 g/dL (6.4-8.2); Troponin I < 50 ng/L (<or=60)
[2021-07-16 13:57] LABS: Influenza A PCR Negative (Negative); Influenza B PCR Negative (Negative); RSV PCR Negative (Negative)
[2021-07-16 14:03] LABS: COVID-19 PCR Positive (Negative); Source Nasopharynx
[2021-07-16] MEDS: Dexamethasone 10 MG/ML VIAL 6 MG IVP (15:08)
--- NOTE | 2021-07-16 15:25 | W.ED.GENAD ---
Discharge Plan Disposition Patient Disposition: HOME Condition: Stable Discharge Details Clinical Impression: COVID-19 Primary Care Provider: Danay Mckeon ED Provider: Chiquis Muñoz Home Meds and New Rx's Prescriptions: Continued fluticasone propion-salmeterol [Advair Diskus] 500-50 mcg/dose blister with device 1 inh inhalation BID 0RF oxybutynin chloride 5 MG tablet 10 mg PO DAILY 0RF Rx Instructions: 2 TABS DAILY.HE (FROM RECORDS) [id number]-epa-fish oil-vit D3 1 EACH capsule 1 ea PO DAILY 0RF guaifenesin [Mucinex] 600 mg tablet extended release 12hr 1,200 mg PO BID Qty: 60 7RF Spiriva with HandiHaler 18 MCG capsule, w/inhalation device 1 puff Inhalation DAILY 0RF Glucosamine Sulf-Chondroitin 1 EACH capsule 1 ea PO DAILY 0RF albuterol sulfate [Ventolin HFA] 200 PUFF HFA aerosol inhaler 2 puff Inhalation .Q4-6H PRN PRN0RF zaleplon 10 mg capsule 10 mg PO HS 0RF Label Comments: TAKE 1 CAPSULE BY MOUTH AT BEDTIME NEEDED cetirizine 10 mg tablet 10 mg PO DAILY 0RF omeprazole 20 mg capsule,delayed release(DR/EC) 20 mg PO DAILY 0RF mirtazapine 7.5 mg tablet 7.5 mg PO DAILY 0RF Discharge Instructions Instructions: Viral Syndrome (ED) Additional Instructions: You have COVID-19, you will need to isolate at 4 to 5 days or until symptomatic improvement and lack of fever You will need to wear a mask if you do not in public from day 5-10 and should he remain symptomatic he should continue to isolate during that. Continue to use all your prescribed medications You have received monoclonal antibody and this can cause an allergic reaction, you should be cautious for the next 24 hours and should he develop difficulty swallowing, shortness of breath, or rash, you will need to return immediately for reassessment Your breathing may worsen, if it does or drops below 90% you should return immediately for reassessment as you may need admission to the hospital, you have declined admission to the hospital at this time, again please return should you begin to feel any worse including weakness, dizziness Take Tylenol as needed for fever control Stay hydrated with regular fluids and continue to take your insurance Referrals: Danay Mckeon [Primary Care Provider] - Discharge Data Discharge Date/Time-TO BE ENTERED AT DEPARTURE: 07/16/21 17:14 Medical Decision Making Patient appears chronically ill and frail, however she is not hypoxic or significantly tachypneic She has mildly diminished lung sounds but is declining current shortness of breath She is COVID-positive which was tested Does not show significant acute abnormality She is given a single dose of Decadron to help with her COPD and COVID-19 diagnosis She was given a dose of monoclonal antibody infusion and observed shortly thereafter At this time we did talk about admission, patient adamantly declined admission Patient otherwise is competent to make decision for discharge Her vitals are likely stable for patient She is given very low threshold to return with new or worsening complaints Medical Records Medical records reviewed: Yes I reviewed the patient's medical records. Lab Data Lab results reviewed: Yes I reviewed the patient's lab results. ECG Data Prior ECG tracings: available for review HPI General Date/Time Provider Initiated Documentation: 07/16/21 12:39. HPI Narrative: This 66-year-old female with history of COPD, hypertension, pulmonary nodules with bronchiectasis presents for report of shortness of breath, fever, chills. History of COPD, taking meds at home does not feel significantly short of breath at this time. Has been reportedly diagnosed with COVID-19. Patient has not outpatient testing yet. Feels as though she has very well at home. Denies any calf pain or swelling or history of pulmonary embolism. Unsure of her underlying pulm oximetry reading. Related Data Home Medications Medication Instructions Recorded Confirmed glucosamine sulfate dipotassium Cl 1 ea PO DAILY 11/20/12 07/16/21 500 mg-chondroitin 400 mg capsule (Glucosamine Sulfate 2 KCL-Chondroitin) tiotropium bromide 18 mcg capsule 1 puff INHALATION DAILY 11/20/12 07/16/21 with inhalation device (Spiriva with HandiHaler) oxybutynin chloride 5 mg tablet 10 mg PO DAILY 02/13/14 07/16/21 sa-0-mkx-epa-fish oil-vit D3 900 1 ea PO DAILY 05/12/14 07/16/21 mg-1,000 unit capsule albuterol sulfate 90 mcg/actuation 2 puff INHALATION .Q4-6H PRN PRN 01/26/17 07/16/21 aerosol inhaler (Ventolin HFA) cetirizine 10 mg tablet 10 mg PO DAILY 11/11/20 07/16/21 mirtazapine 7.5 mg tablet 7.5 mg PO DAILY 11/11/20 07/16/21 omeprazole 20 mg capsule,delayed 20 mg PO DAILY 11/11/20 07/16/21 release zaleplon 10 mg capsule 10 mg PO HS 11/11/20 07/16/21 fluticasone 500 mcg-salmeterol 50 1 inh INHALATION BID 03/01/21 07/16/21 mcg/dose blistr powdr for inhalation (Advair Diskus) guaifenesin 600 mg tablet, 1,200 mg PO BID #60 tab 06/08/21 07/16/21 extended release 12 hr (Mucinex) Previous Rx's Medication Instructions Recorded guaifenesin 600 mg tablet, 1,200 mg PO BID #60 tab 06/08/21 extended release 12 hr (Mucinex) Allergies Allergy/AdvReac Type Severity Reaction Status Date / Time No Known Allergies Allergy Unverified 07/16/21 12:40 General Stated Complaint: SOB FILOMENA: 2 Review of Systems All systems reviewed & are unremarkable except as noted in HPI and below PFSH All Active Problems (Updated 07/16/21 @ 16:06 by AZUCENA Santizo) COVID-19 (Acute) Postoperative examination (Acute) H/O cone biopsy of cervix (Acute) 02/10/21. 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, Hypotension (Acute) DVT prophylaxis (Acute) Discharge planning issues (Acute) HSIL (high grade squamous intraepithelial lesion) on Pap smear of cervix (Acute) STAR II (cervical intraepithelial neoplasia II) (Acute) S/P LEEP (Acute) COPD (chronic obstructive pulmonary disease) (Chronic) Tobacco use (Acute) Central perforation of tympanic membrane, right ear (Acute) Chest pain (Acute) Pulmonary nodules (Acute) Bronchiectasis (Acute) Nicotine dependence, cigarettes, uncomplicated (Acute) Preop examination (Acute) Medical History (Updated 07/16/21 @ 16:06 by AZUCENA Santizo) Fx femur shaft-open 2918. Surgical History (Updated 02/10/21 @ 08:21 by Chelsey Cuellar MD) History of back surgery Hx of appendectomy Hx of cholecystectomy Family History Self Unknown family medical history Social History Smoking/Tobacco Use Status: Current every day Tobacco Type: cigarettes Smoking risk assessment performed?: Yes Alcohol Intake: never Drug use: Occasionally Substance use type: marijuana Do you feel safe at home: Yes Do you feel safe in your relationship?: Yes Exam Const General: cooperative, comfortable and no acute distress Orientation: alert and oriented x3 Eyes Pupils: PERRL Chest Chest: normal inspection of the chest Resp Effort & Inspection: normal respiratory effort Auscultation: clear to auscultation bilaterally Cardio Rate: regular rate Rhythm: regular rhythm Skin General skin exam: no rashes or lesions noted Neuro General: patient alert and patient oriented x3 Extrem Other: No calf swelling or tenderness Course Vital Signs Vital signs: Vital Signs Temperature 37.7 C H 07/16/21 12:21 Pulse 106 H 07/16/21 12:21 Respiratory Rate 25 H 07/16/21 12:21 Blood Pressure 133/74 07/16/21 12:21 Pulse Oximetry 95 07/16/21 12:21 Temperature 37.9 C H 07/16/21 15:20 Temperature Source Temporal Artery Scan 07/16/21 15:20 Pulse 87 07/16/21 15:20 Respiratory Rate 19 07/16/21 15:20 Respiratory Effort Incrsd Work of Breathing 07/16/21 13:55 Respiratory Depth Shallow 07/16/21 13:55 Respiratory Pattern Tachypnea 07/16/21 13:55 Blood Pressure 108/58 L 07/16/21 15:20 Pulse Oximetry 92 07/16/21 15:20 Oxygen Delivery Method Room Air 07/16/21 15:20 Oxygen Flow Rate 0 07/16/21 15:20 Pain Level 0 07/16/21 12:21 Lab/Test Results Lab/Test Results: 07/16/21 13:48 Blood Blood Culture - Pending 07/16/21 13:15 Blood Blood Culture - Pending Laboratory Tests Range/Units 07/16/21 07/16/21 07/16/21 13:15 13:15 13:15 WBC (4.4-10.8) 10^3/uL 4.44 RBC (3.93-5.22) 10^6/uL 4.24 Hgb (11.2-15.7) g/dL 13.3 Hct (36.0-46.0) % 40.5 MCV (80-95) fL 96 H MCH (27.0-33.0) pg 31.4 MCHC (32.0-36.0) % 32.8 RDW (11.7-14.6) % 13.3 Plt Count (130-400) 10^3/uL 137 MPV (8.0-11.0) fL 10.8 Immature Gran % 0.0 Neutrophils % 75.2 Lymphocytes % 9.2 Monocytes % 15.1 Eosinophils % 0.0 Basophils % 0.5 Nucleated RBC % (0.0-0.3) % 0.0 Absolute Neutrophils (1.2-6.7) 10^3/uL 3.34 Absolute Lymphocytes (1.2-3.4) 10^3/uL 0.41 L Absolute Monocytes (0.1-0.8) 10^3/uL 0.67 Absolute Eosinophils (0.0-0.7) 10^3/uL 0.00 Absolute Basophils (0.0-0.2) 10^3/uL 0.02 VBG Lactate (0.6-1.4) mmol/L Sodium (136-145) mmol/L 135 L Potassium (3.5-5.1) mmol/L 4.2 Chloride (98-107) mmol/L 98 Carbon Dioxide (21.0-32.0) mmol/L 29.2 Anion Gap (3-11) mmol/L 7.8 BUN (7-18) mg/dL 14 Creatinine (0.55-1.02) mg/dL 0.8 Estimated GFR/1.73 m2 (mL/min/1.73m2) >= 60.00 Glucose (74-106) mg/dL 97 Calcium (8.5-10.1) mg/dL 9.1 Total Bilirubin (0.2-1.0) mg/dL 0.3 AST (15-37) U/L 29 ALT (14-59) U/L 32 Alkaline Phosphatase (46-116) U/L 123 H Troponin I (<or=60) ng/L < 50 NT-Pro-B Natriuret Pep (<300) pg/mL 414 H Total Protein (6.4-8.2) g/dL 8.5 H Albumin (3.4-5.0) g/dL 3.9 Lipase (73-393) U/L 64 Urine Color (Yellow) Urine Clarity (Clear) Urine pH (5-8) Ur Specific [place] (1.005-1.025) Urine Protein (Negative) mg/dL Urine Ketones (Negative) mg/dL Urine Blood (Negative) Urine Nitrite (Negative) Urine Bilirubin (Negative) Urine Urobilinogen (Up TO 0.2) EU/dL Ur Leukocyte Esterase (Negative) Urine RBC (0-2) HPF Urine WBC (0-5) HPF Ur Epithelial Cells (Negative) HPF Urine Crystals (Negative) HPF Urine Bacteria (Negative) HPF Urine Casts (Negative) LPF Urine Mucus (Negative) Ur Culture Indicated? Urine Glucose (Negative) mg/dL COVID-19 Source Nasopharynx SARS-CoV-2 (PCR) (Negative) Positive A Influenza Type A (PCR) (Negative) Negative Influenza Type B (PCR) (Negative) Negative RSV (PCR) (Negative) Negative Range/Units 07/16/21 07/16/21 13:25 13:30 WBC (4.4-10.8) 10^3/uL RBC (3.93-5.22) 10^6/uL Hgb (11.2-15.7) g/dL Hct (36.0-46.0) % MCV (80-95) fL MCH (27.0-33.0) pg MCHC (32.0-36.0) % RDW (11.7-14.6) % Plt Count (130-400) 10^3/uL MPV (8.0-11.0) fL Immature Gran % Neutrophils % Lymphocytes % Monocytes % Eosinophils % Basophils % Nucleated RBC % (0.0-0.3) % Absolute Neutrophils (1.2-6.7) 10^3/uL Absolute Lymphocytes (1.2-3.4) 10^3/uL Absolute Monocytes (0.1-0.8) 10^3/uL Absolute Eosinophils (0.0-0.7) 10^3/uL Absolute Basophils (0.0-0.2) 10^3/uL VBG Lactate (0.6-1.4) mmol/L 0.9 Sodium (136-145) mmol/L Potassium (3.5-5.1) mmol/L Chloride (98-107) mmol/L Carbon Dioxide (21.0-32.0) mmol/L Anion Gap (3-11) mmol/L BUN (7-18) mg/dL Creatinine (0.55-1.02) mg/dL Estimated GFR/1.73 m2 (mL/min/1.73m2) Glucose (74-106) mg/dL Calcium (8.5-10.1) mg/dL Total Bilirubin (0.2-1.0) mg/dL AST (15-37) U/L ALT (14-59) U/L Alkaline Phosphatase (46-116) U/L Troponin I (<or=60) ng/L NT-Pro-B Natriuret Pep (<300) pg/mL Total Protein (6.4-8.2) g/dL Albumin (3.4-5.0) g/dL Lipase (73-393) U/L Urine Color (Yellow) Yellow Urine Clarity (Clear) Clear Urine pH (5-8) 7.0 Ur Specific [place] (1.005-1.025) 1.020 Urine Protein (Negative) mg/dL Negative Urine Ketones (Negative) mg/dL Negative Urine Blood (Negative) Trace-intact H Urine Nitrite (Negative) Negative Urine Bilirubin (Negative) Negative Urine Urobilinogen (Up TO 0.2) EU/dL 0.2 Ur Leukocyte Esterase (Negative) Negative Urine RBC (0-2) HPF 3-5 H Urine WBC (0-5) HPF 0-2 Ur Epithelial Cells (Negative) HPF Rare Urine Crystals (Negative) HPF Rare Amorphous Urine Bacteria (Negative) HPF Rare Urine Casts (Negative) LPF 0-2 Coarse Granular Urine Mucus (Negative) Trace Ur Culture Indicated? No Urine Glucose (Negative) mg/dL Negative COVID-19 Source SARS-CoV-2 (PCR) (Negative) Influenza Type A (PCR) (Negative) Influenza Type B (PCR) (Negative) RSV (PCR) (Negative)
== END 2021-07-16 17:14 | disposition home or self-care (01) ==
PROVIDERS: Emergency Provider Physician Assistant; PCP Nurse Practitioner Family
DX: U07.1 COVID-19 (principal); R50.9 Fever, unspecified; R06.02 Shortness of breath; J44.9 Chronic obstructive pulmonary disease, unspecified; F17.210 Nicotine dependence, cigarettes, uncomplicated
CPT/HCPCS: 36415; 80053; 83690; 87040; 87637; 93005; 96361; 96374; 99284; Q0222; 71045; 81003; 81015; 83605; 83880; 84484; 85025; 93010; J1100

== ENCOUNTER 2021-08-19 13:34 | Emergency (ER) | payer MEDICARE, SELFPAY ==
[2021-08-19 13:38] VITALS: BP 119/63; PULSE 89; RESP 18; TEMP 37.1; O2SAT 96
--- NOTE | 2021-08-19 13:49 | ED.GENADUL_ITS ---
Discharge Plan Disposition Patient Disposition: HOME Condition: Stable Discharge Details Clinical Impression: Chronic nausea, Lung nodules Primary Care Provider: Danay Mckeon ED Provider: Marita Mariano Home Meds and New Rx's Prescriptions: New ondansetron 4 mg tablet,disintegrating 4 mg PO TID PRN (Reason: nausea and vomiting) Qty: 6 0RF Continued fluticasone propion-salmeterol [Advair Diskus] 500-50 mcg/dose blister with device 1 inh inhalation BID oxybutynin chloride 5 MG tablet 10 mg PO DAILY Rx Instructions: 2 TABS DAILY.HE (FROM RECORDS) [id number]-2-qiu-epa-fish oil-vit D3 1 EACH capsule 1 ea PO DAILY guaifenesin [Mucinex] 600 mg tablet extended release 12hr 1,200 mg PO BID Qty: 60 7RF Spiriva with HandiHaler 18 MCG capsule, w/inhalation device 1 puff Inhalation DAILY Glucosamine Sulf-Chondroitin 1 EACH capsule 1 ea PO DAILY albuterol sulfate [Ventolin HFA] 200 PUFF HFA aerosol inhaler 2 puff Inhalation .Q4-6H PRN PRN zaleplon 10 mg capsule 10 mg PO HS Label Comments: TAKE 1 CAPSULE BY MOUTH AT BEDTIME NEEDED cetirizine 10 mg tablet 10 mg PO DAILY omeprazole 20 mg capsule,delayed release(DR/EC) 20 mg PO DAILY mirtazapine 7.5 mg tablet 7.5 mg PO DAILY elderberry fruit 200 mg Capsule 200 mg PO DAILY Discharge Instructions Instructions: Acute Nausea and Vomiting (ED) Additional Instructions: Your labs today are reassuring and show no evidence of acute concerning or significant findings. Your imaging today shows evidence of previously noted nodules within your lungs in addition to 2 new nodules not seen on previous imaging from November 2020. There were no other acute significant or concerning findings noted. It is recommended that you follow-up with your primary care doctor for further evaluation and for referral to pulmonology for further evaluation and discussion of these nodules and whether they will require medication or further evaluation. You have been placed on general surgery follow-up list for further evaluation of your nausea including consideration for upper endoscopy. A prescription for Zofran has been sent electronically to your pharmacy to take as needed and directed for nausea. Follow-up with your primary care doctor in 1 week. Return to the emergency department with any worsening or new concerning symptoms. Please be aware that you were seen during a time of global shortage of iodinated contrast media. This means an alternative approach to your diagnosis and treatment may have been employed in order to provide optimal care during this shortage. If you have any worsening symptoms, please go to the nearest Emergency Department or call 911 immediately. Referrals: Viviana Benavides MD [ [facility] STAFF PHYSICIAN] - Kelli Fishman MD [ [facility] STAFF PHYSICIAN] - Discharge Data Discharge Date/Time-TO BE ENTERED AT DEPARTURE: 08/19/21 17:48 Discharge Physician: Marita Mariano Medical Decision Making 1345 -- 66-year-old female with a history of COPD, tobacco dependence and recent COVID-19 infection last month presents for chronic nausea for the past several years, getting progressively worse. No change in bowel or bladder habits. She denies fever, cough, shortness of breath or vomiting. Her vitals are within normal limits. She is cachectic appearing. Her abdomen is soft and nontender. Review of records note that she had a PET scan in December 2020 secondary to pulmonary nodules noted on a CT chest which noted multiple pulmonary nodules which could be inflammatory but malignancy not excluded. There were no other regional donna or distant metastases identified. Differential diagnosis includes long COVID, GERD, ulcer, esophagitis or gastritis, mass. Discussed with radiology who recommends CT chest abdomen pelvis with oral contrast but will hold on IV contrast at this time. This patient was evaluated during a time of global shortage of iodinated contrast media. Based on guidance from the [employer], best practices, and local institutional approaches, an alternative path for evaluating and managing the patient may have been employed in order to provide optimal care during this shortage. The current situation has been discussed with the patient. Will obtain screening labs, give a dose of IV Zofran, fluids and reassess. 1700 -- Labs and imaging reviewed. Normal white blood cell count. Normal electrolytes. Lipase normal. Troponin normal. Urinalysis within normal limits. CT chest/abd/pelvis w/ PO contrast only notes: IMPRESSION: 1. Nodular infiltrates in both lungs which are stable from the prior CT scan of 12/09/2020.? However, 2 of the nodules in the left upper lobe now exhibits some cavitation.? In addition, there are a few new small sub cm nodular densities in both lungs. 2. There are no pleural effusions nor intrathoracic adenopathy.? No pericardial effusion. 3. Gallbladder surgically absent.? The biliary tree is not dilated. 4.? Bilateral nonobstructive nephrolithiasis.? There are 4 x 3 millimeter calculi in the lower pole of both kidneys.? There are no calculi in the nondilated ureters nor within the urinary bladder. 5.? No bowel obstruction.? No ascites.? No free air.? Appendix cannot be identified. 6. Left hip hardware.? Patient reassessed and her nausea is improved and she feels comfortable going home. She has no report of fever, productive cough with normal white blood cell count, will hold on antibiotics for lung findings. Will place patient on care management spoke to arrange for follow-up appointment with pulmonary for further evaluation. Discussed that she may need an EGD for further evaluation of her chronic nausea. We will give Zofran to go for home. Advised to follow up with the primary care doctor for re-evaluation. Usual and customary return precautions given prior to discharge. Medical Records Medical records reviewed: Yes I reviewed the patient's medical records. Medical records narrative: 12/29/[address] [place] [address] STANDARD SKULL BASE TO MID THIGH Impression: 1. Multiple new bilateral FDG avid pulmonary nodules. While findings may represent a multifocal inflammatory process, a malignant etiology for one or more of these nodules is not excluded. 2. Previously demonstrated FDG avid bilateral pulmonary nodules on the 03/2019 PET/CT are largely unchanged in size and metabolic activity, which would favor a chronic inflammatory etiology. 3. New focal FDG activity in the posterior right lung base, not well characterized automatically given location, may represent an additional indeterminate nodular opacity or an inflammatory/infectious process. 4. No regional donna or distant metastasis identified. Imaging Data Radiologic Study: Radiologist's impression: CT CHEST/ABD/PEL WO CLINICAL HISTORY: ? chronic nausea, r/o mass. ? TECHNIQUE:? Imaging Protocol: Axial computed tomography images with coronal and sagittal reformatted images were created and reviewed CONTRAST MATERIAL:? Intravenous: none Oral: Yes COMPARISON:? CT CT CHEST WO from 12/09/2020 FINDINGS: CHEST: LUNGS: Emphysematous changes again noted.? There is stable scarring in the sub apical regions of both upper lobes.? Also unchanged 7 x 6 millimeter nodule in the left upper lobe.? Two nodules previously present in the posterior aspect of the left upper lobe exhibits some cavitation on the present study.? These, however, not significantly increased in size.? There is a new small nodule in the apical posterior segment of the left upper lobe measuring 5 millimeters (ser ies 2/image 20).? Other nodule in the left upper lobe slightly below that level is unchanged.? Small nodular density in the superior segment of the left lower lobe measuring 6 millimeters is noted..? In the opposite right lung the spiculated nodular infiltrate in the upper lobe is unchanged.? There is a new 5 millimeter non calcified nodule in the superior segment of the right lower lobe (series 2/image 35).? There is mucous noted within the distal right mainstem bronchus and within right lower lobe bronchi.? There are no pleural effusions on either side. MEDIASTINUM: No obvious hilar nor mediastinal adenopathy. Visualized thyroid unremarkable. CARDIAC: Heart size is normal.? There is no pericardial effusion.Diameter of the ascending thoracic aorta is slightly prominent, measuring 3.8 cm.? There is coronary artery calcification noted. OSSEOUS: No significant osseous lesions.. ABDOMEN: Interpretation somewhat limited by lack of yavqn-nqioxpmmt-fujrqmpfiqoftie fat. There is no ascites. LIVER: There are no obvious focal hepatic lesions evident of this noninfused study.? GALLBLADDER/BILIARY: The gallbladder surgically absent.? CBD is not dilated. PANCREAS: No evidence of obvious pancreatic mass nor dilatation of the pancreatic duct.? SPLEEN: Spleen is not enlarged.? No obvious intrasplenic lesions.? ADRENALS: There are no significant adrenal masses. KIDNEYS: Bilateral nephrolithiasis.? There are calculi in the lower poles of both kidneys, with both calculi measuring 4 by 3 millimeters.? No obvious hydronephrosis.? A parapelvic cyst on the right side is noted which measures 2 x 2 cm.? No solid renal masses ureters are not dilated.? There are no calculi in the nondistended urinary bladder..? ABDOMINAL AORTA: Calcified but not enlarged. LYMPH NODES: There is no retroperitoneal nor para-aortic adenopathy. ABDOMINAL WALL/GI: No evidence of significant anterior abdominal wall nor inguinal hernia.? No evidence of bowel obstruction. PELVIS:? LYMPH NODES: There is no intrapelvic nor inguinal adenopathy. GI: Appendix is difficult to identify is separate structure but there are no obvious secondary signs of acute appendicitis.No evidence of sigmoid diverticulitis. URINARY BLADDER: No calculi nor obvious masses evident REPRODUCTIVE: Uterus and adnexal regions appear age-appropriate.? There is no free fluid in the pelvis. OSSEOUS: Left hip hardware.? There are no lytic osseous lesions.? Evidence of prior lumbar spine laminectomies.? No fractures.? Chronic disc space narrowing in the lumbar spine. IMPRESSION: 1. Nodular infiltrates in both lungs which are stable from the prior CT scan of 12/09/2020.? However, 2 of the nodules in the left upper lobe now exhibits some cavitation.? In addition, there are a few new small sub cm nodular densities in both lungs. 2. There are no pleural effusions nor intrathoracic adenopathy.? No pericardial effusion. 3. Gallbladder surgically absent.? The biliary tree is not dilated. 4.? Bilateral nonobstructive nephrolithiasis.? There are 4 x 3 millimeter calculi in the lower pole of both kidneys.? There are no calculi in the nondilated ureters nor within the urinary bladder. 5.? No bowel obstruction.? No ascites.? No free air.? Appendix cannot be identified. Left hip hardware.? Lab Data Lab results reviewed: Yes I reviewed the patient's lab results. Labs: Laboratory Tests Range/Units 08/19/21 08/19/21 08/19/21 13:55 13:55 14:50 WBC (4.4-10.8) 10^3/uL 6.02 RBC (3.93-5.22) 10^6/uL 4.27 Hgb (11.2-15.7) g/dL 13.3 Hct (36.0-46.0) % 41.2 MCV (80-95) fL 97 H MCH (27.0-33.0) pg 31.1 MCHC (32.0-36.0) % 32.3 RDW (11.7-14.6) % 13.2 Plt Count (130-400) 10^3/uL 188 MPV (8.0-11.0) fL 10.5 Immature Gran % 0.2 Neutrophils % 61.8 Lymphocytes % 25.6 Monocytes % 10.0 Eosinophils % 1.7 Basophils % 0.7 Nucleated RBC % (0.0-0.3) % 0.0 Absolute Neutrophils (1.2-6.7) 10^3/uL 3.73 Absolute Lymphocytes (1.2-3.4) 10^3/uL 1.54 Absolute Monocytes (0.1-0.8) 10^3/uL 0.60 Absolute Eosinophils (0.0-0.7) 10^3/uL 0.10 Absolute Basophils (0.0-0.2) 10^3/uL 0.04 Sodium (136-145) mmol/L 139 Potassium (3.5-5.1) mmol/L 4.1 Chloride (98-107) mmol/L 101 Carbon Dioxide (21.0-32.0) mmol/L 31.8 Anion Gap (3-11) mmol/L 6.2 BUN (7-18) mg/dL 14 Creatinine (0.55-1.02) mg/dL 0.7 Estimated GFR/1.73 m2 (mL/min/1.73m2) >= 60.00 Glucose (74-106) mg/dL 116 H Calcium (8.5-10.1) mg/dL 9.5 Magnesium (1.8-2.4) mg/dL 2.0 Total Bilirubin (0.2-1.0) mg/dL 0.3 AST (15-37) U/L 27 ALT (14-59) U/L 28 Alkaline Phosphatase (46-116) U/L 101 Troponin I (<or=60) ng/L < 50 Total Protein (6.4-8.2) g/dL 8.3 H Albumin (3.4-5.0) g/dL 3.5 Lipase (73-393) U/L 58 Urine Color (Yellow) Yellow Urine Clarity (Clear) Clear Urine pH (5-8) 6.0 Ur Specific [place] (1.005-1.025) 1.025 Urine Protein (Negative) mg/dL Negative Urine Ketones (Negative) mg/dL Negative Urine Blood (Negative) Negative Urine Nitrite (Negative) Negative Urine Bilirubin (Negative) Negative Urine Urobilinogen (Up TO 0.2) EU/dL 0.2 Ur Leukocyte Esterase (Negative) Negative Urine Glucose (Negative) mg/dL Negative ECG Data Attestation: I personally reviewed and interpreted this ECG (s) as follows: Interpretation: rate of 86, sinus, No STEMI. No significant change from previous EKG. HPI General Mode of arrival: ambulatory . Date/Time Provider Initiated Documentation: 08/19/21 13:46 . Limitations to Documentation: no limitations . Information obtained by: patient . HPI Narrative: Patient is a 66-year-old female with a history of COPD, tobacco dependence and recent COVID-19 infection last month presents for chronic nausea for the past several years, getting progressively worse. Patient states she has lost approximately 50 pounds in the last 2 years due to decreased appetite. She states her doctor recently started her on Ensure due to her weight loss and decreased appetite. She states she has recently gained 3 pounds. She denies any fever, chest pain, shortness of breath, abdominal pain, vomiting, urinary symptoms or diarrhea. She states she had a normal bowel movement today. Related Data Home Medications Medication Instructions Recorded Confirmed glucosamine sulfate dipotassium Cl 1 ea PO DAILY 11/20/12 08/19/21 500 mg-chondroitin 400 mg capsule (Glucosamine Sulfate 2 KCL-Chondroitin) tiotropium bromide 18 mcg capsule 1 puff inhalation DAILY 11/20/12 08/19/21 with inhalation device (Spiriva with HandiHaler) oxybutynin chloride 5 mg tablet 10 mg PO DAILY 02/13/14 08/19/21 vn-[id number]-fish oil-vit D3 900 1 ea PO DAILY 05/12/14 08/19/21 mg-1,000 unit capsule albuterol sulfate 90 mcg/actuation 2 puff inhalation .Q4-6H PRN PRN 01/26/17 08/19/21 aerosol inhaler (Ventolin HFA) cetirizine 10 mg tablet 10 mg PO DAILY 11/11/20 08/19/21 mirtazapine 7.5 mg tablet 7.5 mg PO DAILY 11/11/20 08/19/21 omeprazole 20 mg capsule,delayed 20 mg PO DAILY 11/11/20 08/19/21 release zaleplon 10 mg capsule 10 mg PO HS 11/11/20 08/19/21 fluticasone 500 mcg-salmeterol 50 1 inh inhalation BID 03/01/21 08/19/21 mcg/dose blistr powdr for inhalation (Advair Diskus) guaifenesin 600 mg tablet, 1,200 mg PO BID #60 tabs 06/08/21 08/19/21 extended release 12 hr (Mucinex) elderberry fruit 200 mg capsule 200 mg PO DAILY 08/19/21 08/19/21 ondansetron 4 mg disintegrating 4 mg PO TID PRN nausea and 08/19/21 tablet vomiting #6 tabs Previous Rx's Medication Instructions Recorded guaifenesin 600 mg tablet, 1,200 mg PO BID #60 tabs 06/08/21 extended release 12 hr (Mucinex) ondansetron 4 mg disintegrating 4 mg PO TID PRN nausea and 08/19/21 tablet vomiting #6 tabs Allergies Allergy/AdvReac Type Severity Reaction Status Date / Time No Known Allergies Allergy Unverified 08/19/21 13:45 General Stated Complaint: Abd Prob FILOMENA: 3 Review of Systems All systems reviewed & are unremarkable except as noted in HPI and below Constitutional Constitutional: Denies chills, Denies excessive sweating, Denies fatigue, Denies fever(s), Denies weakness and Denies weight loss Eyes Eyes: Reports system reviewed and no additional complaints, except as documented and Denies blurry vision ENT Ears, Nose, Mouth, and Throat: Denies vertigo, Denies dizziness, Denies otalgia, Denies nasal congestion, Denies sore throat and Denies throat swelling Cardiovascular Cardiovascular: Denies chest pain, Denies syncope, Denies rapid heart rate and Denies dyspnea Respiratory Respiratory: Denies chest congestion, Denies cough, Denies pain on inspiration and Denies dyspnea Gastrointestinal Gastrointestinal: Denies abdominal pain, Denies diarrhea, Reports nausea and Denies vomiting Genitourinary Genitourinary: Denies hematuria, Denies dysuria and Denies flank pain Musculoskeletal Musculoskeletal: Denies back pain and Denies joint swelling Integumentary/Breasts Skin/Breast: Denies lesions and Denies rash Neurologic Neurologic: Denies behavioral changes, Denies confusion, Denies vertigo, Denies dizziness, Denies syncope, Denies localized weakness and Denies weakness Psychiatric Psychiatric: Denies behavioral changes, Denies confusion and Denies depression Endocrine Endocrine: Denies excessive sweating and Denies fatigue Hematologic/Lymphatic Hematologic/Lymphatic: Denies easy bruising and Denies lymphadenopathy Allergic/Immunologic Allergic/Immunologic: Denies throat swelling PFSH All Active Problems (Updated 08/19/21 @ 17:22 by Marita Mariano DO) COVID-19 (Acute) Chronic nausea (Acute) Lung nodules (Acute) Postoperative examination (Acute) H/O cone biopsy of cervix (Acute) 02/10/21. 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, Hypotension (Acute) DVT prophylaxis (Acute) Discharge planning issues (Acute) HSIL (high grade squamous intraepithelial lesion) on Pap smear of cervix (Acute) STAR II (cervical intraepithelial neoplasia II) (Acute) S/P LEEP (Acute) COPD (chronic obstructive pulmonary disease) (Chronic) Tobacco use (Acute) Central perforation of tympanic membrane, right ear (Acute) Chest pain (Acute) Pulmonary nodules (Acute) Bronchiectasis (Acute) Nicotine dependence, cigarettes, uncomplicated (Acute) Preop examination (Acute) Medical History (Updated 08/19/21 @ 17:22 by Marita Mariano DO) Fx femur shaft-open 2918. Surgical History (Updated 02/10/21 @ 08:21 by Chelsey Cuellar MD) History of back surgery Hx of appendectomy Hx of cholecystectomy Family History Self Unknown family medical history Social History Smoking/Tobacco Use Status: Current every day Tobacco Type: cigarettes Smoking risk assessment performed?: Yes Alcohol Intake: never Drug use: Occasionally Substance use type: marijuana Do you feel safe at home: Yes Do you feel safe in your relationship?: Yes Exam Const General: cooperative and ill appearing chronically Nutritional Appearance: thin Orientation: alert, awake and oriented x3 HENMT Head: normal to inspection Ears: hearing grossly normal bilaterally, external ears normal and TM's normal bilaterally General nose exam: external nose normal Face and sinus: normal facial exam Mouth: oral mucosae normal Teeth and gingiva: dentition normal Throat: posterior oropharynx normal Eyes General: appearance normal, both eyes and all related structures Eyelids: eyelids normal Pupils: PERRL EOM: EOM intact bilaterally Neck Neck: normal visual inspection Lymphatic: no lymphadenopathy noted Chest Chest: normal inspection of the chest Resp Effort & Inspection: normal respiratory effort and able to speak in complete sentences Auscultation: clear to auscultation bilaterally Cardio Rate: regular rate Rhythm: regular rhythm GI Inspection: normal to inspection Palpation: soft, not firm, no guarding, no hepatosplenomegaly, no masses and nontender Auscultation: hypoactive bowel sounds Skin General skin exam: no rashes or lesions noted Neuro General: patient alert and patient awake Cognition: normal cognition Speech: speech normal Gait: normal gait Motor: muscle tone normal throughout Sensory Exam: no sensory deficits noted Extrem General: normal to inspection, full ROM and capillary refill normal Psych Appearance: grossly normal Mental Status: mental status grossly normal Speech and Movement: speech and movement normal Affect: normal affect Thought Process: normal Course Vital Signs Vital signs: Vital Signs Temperature 98.8 F 08/19/21 13:38 Pulse 89 08/19/21 13:38 Respiratory Rate 18 08/19/21 13:38 Blood Pressure 119/63 08/19/21 13:38 Pulse Oximetry 96 08/19/21 13:38 Temperature 98.8 F 08/19/21 13:38 Temperature Source Temporal Artery Scan 08/19/21 13:38 Pulse 89 08/19/21 13:38 Respiratory Rate 18 08/19/21 13:38 Respiratory Effort Non-Labored 08/19/21 13:44 Blood Pressure 119/63 08/19/21 13:38 Blood Pressure Position Sitting 08/19/21 13:38 Pulse Oximetry 96 08/19/21 13:38 Oxygen Delivery Method Room Air 08/19/21 13:38 Oxygen Flow Rate 0 08/19/21 13:38 Pain Level 9 08/19/21 13:38
[2021-08-19 14:06] LABS: Abs Immature Grans 0.01 10^3/uL (0.0-0.06); Absolute Basophil Count 0.04 10^3/uL (0.0-0.2); Absolute Lymphocyte Count 1.54 10^3/uL (1.2-3.4); Absolute Neutrophil Count 3.73 10^3/uL (1.2-6.7); Basophils % 0.7; Eosinophils % 1.7; HCT 41.2 % (36.0-46.0); HGB 13.3 g/dL (11.2-15.7); Immature Grans % 0.2; Lymphocytes % 25.6; MCH 31.1 pg (27.0-33.0); MCHC 32.3 % (32.0-36.0); MCV 97 fL (80-95); MPV 10.5 fL (8.0-11.0); Neutrophils % 61.8; Platelet Count 188 10^3/uL (130-400); RBC 4.27 10^6/uL (3.93-5.22); RDW 13.2 % (11.7-14.6); RDW-SD 46.5 fL; WBC 6.02 10^3/uL (4.4-10.8)
--- NOTE | 2021-08-19 14:15 | DI.CT_ITS ---
Exam(s) CT CHEST/ABD/PEL WO EXAM: CT CHEST/ABD/PEL WO CLINICAL HISTORY: chronic nausea, r/o mass. TECHNIQUE: Imaging Protocol: Axial computed tomography images with coronal and sagittal reformatted images were created and reviewed CONTRAST MATERIAL: Intravenous: none Oral: Yes COMPARISON: CT CT CHEST WO from 12/09/2020 FINDINGS: CHEST: LUNGS: Emphysematous changes again noted. There is stable scarring in the sub apical regions of both upper lobes. Also unchanged 7 x 6 millimeter nodule in the left upper lobe. Two nodules previously present in the posterior aspect of the left upper lobe exhibits some cavitation on the present study . These, however, not significantly increased in size. There is a new small nodule in the apical po sterior segment of the left upper lobe measuring 5 millimeters (series 2/image 20). Other nodule in the left upper lobe slightly below that level is unchanged. Small nodular density in the superior se gment of the left lower lobe measuring 6 millimeters is noted.. In the opposite right lung the spicu lated nodular infiltrate in the upper lobe is unchanged. There is a new 5 millimeter non calcified n odule in the superior segment of the right lower lobe (series 2/image 35). There is mucous noted wit hin the distal right mainstem bronchus and within right lower lobe bronchi. There are no pleural eff usions on either side. MEDIASTINUM: No obvious hilar nor mediastinal adenopathy. Visualized thyroid unremarkable. CARDIAC: Heart size is normal. There is no pericardial effusion.Diameter of the ascending thoracic a sheila is slightly prominent, measuring 3.8 cm. There is coronary artery calcification noted. OSSEOUS: No significant osseous lesions.. ABDOMEN: Interpretation somewhat limited by lack of wxxer-kfmjpcfjj-lmrewsijslaesmc fat. There is no ascites. LIVER: There are no obvious focal hepatic lesions evident of this noninfused study. GALLBLADDER/BILIARY: The gallbladder surgically absent. CBD is not dilated. PANCREAS: No evidence of obvious pancreatic mass nor dilatation of the pancreatic duct. SPLEEN: Spleen is not enlarged. No obvious intrasplenic lesions. ADRENALS: There are no significant adrenal masses. KIDNEYS: Bilateral nephrolithiasis. There are calculi in the lower poles of both kidneys, with both calculi measuring 4 by 3 millimeters. No obvious hydronephrosis. A parapelvic cyst on the right zachary e is noted which measures 2 x 2 cm. No solid renal masses ureters are not dilated. There are no cheli culi in the nondistended urinary bladder.. ABDOMINAL AORTA: Calcified but not enlarged. LYMPH NODES: There is no retroperitoneal nor para-aortic adenopathy. ABDOMINAL WALL/GI: No evidence of significant anterior abdominal wall nor inguinal hernia. No evidence of bowel obstruction. PELVIS: LYMPH NODES: There is no intrapelvic nor inguinal adenopathy. GI: Appendix is difficult to identify is separate structure but there are no obvious secondary signs of acute appendicitis.No evidence of sigmoid diverticulitis. URINARY BLADDER: No calculi nor obvious masses evident REPRODUCTIVE: Uterus and adnexal regions appear age-appropriate. There is no free fluid in the pelvi s. OSSEOUS: Left hip hardware. There are no lytic osseous lesions. Evidence of prior lumbar spine lami nectomies. No fractures. Chronic disc space narrowing in the lumbar spine. IMPRESSION: 1. Nodular infiltrates in both lungs which are stable from the prior CT scan of 12/09/2020. However, 2 of the nodules in the left upper lobe now exhibits some cavitation. In addition, there are a few new small sub cm nodular densities in both lungs. 2. There are no pleural effusions nor intrathoracic adenopathy. No pericardial effusion. 3. Gallbladder surgically absent. The biliary tree is not dilated. 4. Bilateral nonobstructive nephrolithiasis. There are 4 x 3 millimeter calculi in the lower pole o f both kidneys. There are no calculi in the nondilated ureters nor within the urinary bladder. 5. No bowel obstruction. No ascites. No free air. Appendix cannot be identified. Left hip hardware. Discussed with ER provider RADIATION DOSE DELIVERED: 638.95mGy.cm Total DLP DATA REPOSITORY: All CT scans at this facility are submitted to the National Radiology Data Registry (NRDR) Dose Index Registry (DIR) with the [employer] ([employer]). RADIATION OPTIMIZATION: All CT scans at this facility use at least one of these dose optimization te chniques: automated exposure control; mA and/or kV adjustment per patient size (includes targeted exa ms where dose is matched to clinical indication); or iterative reconstruction.
--- NOTE | 2021-08-19 14:15 | RT.EKG_ITS ---
APPROVED REPORT Exam: Resting ECG Reason for Exam: nausea Patient Location: E HR:86 bpm ECG Measurements Heart Rate 86 AXIS ID 131 P 83 QRSd 77 QRS 35 QT 366 T 59 QTc 437 Conclusion Sinus rhythm...normal P axis, V-rate 60- 99 Consider anteroseptal infarct...Q >30mS, dimin R, V1-V2. Sinus. Normal axis. No STEMI. I have reviewed and interpreted ECG and agree with software generated interpretation.
[2021-08-19 14:24] LABS: ALT 28 U/L (14-59); AST 27 U/L (15-37); Albumin 3.5 g/dL (3.4-5.0); Alkaline Phosphatase 101 U/L (46-116); Anion Gap 6.2 mmol/L (3-11); BUN 14 mg/dL (7-18); Bilirubin, Total 0.3 mg/dL (0.2-1.0); CO2 31.8 mmol/L (21.0-32.0); CREATININE 0.7 mg/dL (0.55-1.02); Calcium 9.5 mg/dL (8.5-10.1); Chloride 101 mmol/L (98-107); Glucose 116 mg/dL (74-106); Lipase 58 U/L (73-393); Potassium 4.1 mmol/L (3.5-5.1); Sodium 139 mmol/L (136-145); Total Protein 8.3 g/dL (6.4-8.2); Troponin I < 50 ng/L (<or=60)
[2021-08-19] MEDS: Breeza Beverage 473 ML BTL PO ×2 (14:36→14:37)
[2021-08-19] MEDS: Normal Saline Flush 10 ML SYR IVP (14:53)
[2021-08-19] MEDS: Normal Saline 1,000 ML 1000 ML IV (14:53)
[2021-08-19] MEDS: Ondansetron 4 MG/2 ML VIAL IVP (14:53)
[2021-08-19 15:16] LABS: Bilirubin Negative (Negative); Blood Negative (Negative); Clarity Clear (Clear); Glucose Negative (Negative); Ketones Negative (Negative); Leukocyte Esterase Negative (Negative); Nitrite Negative (Negative); Specific Gravity 1.025 (1.005-1.025); Urobilinogen 0.2 EU/dL (Up TO 0.2)
--- NOTE | 2021-08-19 17:24 | NUR.NOTE ---
Nursing Note: PT INFO FAXED TO [facility] FOR LUNG NODULES & CHRONIC NAUSEA. TO BE SEEN IN TWO WEEKS. BRITTANI COLUNGA
[2021-08-19 17:37] VITALS: BP 129/87; PULSE 85; TEMP 37.2
[2021-08-19] MEDS: Ondansetron O.D.T. 4 MG TABEF, 3 TABS/BTL PO (17:39)
== END 2021-08-19 17:48 | disposition home or self-care (01) ==
PROVIDERS: Emergency Provider Physician Assistant; PCP Nurse Practitioner Family
DX: R11.0 Nausea (principal); R91.8 Other nonspecific abnormal finding of lung field; Z86.16 Personal history of COVID-19; J44.9 Chronic obstructive pulmonary disease, unspecified; F17.210 Nicotine dependence, cigarettes, uncomplicated
CPT/HCPCS: 36415; 71250; 80053; 83690; 93005; 96361; 96374; 99284; 74176; 81003; 83735; 84484; 85025; 93010; J2405; J3490

== ENCOUNTER → 2021-09-10 09:47 | Outpatient (BNVA) | payer MEDICARE, SELFPAY | PROVIDERS: PCP Nurse Practitioner Family; Referring Provider Nurse Practitioner Family; Visit Provider Physical Therapy Assistant | DX: J98.4 Other disorders of lung (principal); J44.9 Chronic obstructive pulmonary disease, unspecified; R63.4 Abnormal weight loss; R11.2 Nausea with vomiting, unspecified | CPT/HCPCS: 99213 ==

== ENCOUNTER 2021-09-15 18:05 | Outpatient (REF) | payer MEDICARE, SELFPAY ==
[2021-09-15 23:04] LABS: Legionella Ag Detection Urine Negative (Negative)
[2021-09-16 09:04] LABS: Cyclic Citrullinated Peptide <2.5 U/mL (<5.0)
[2021-09-16 13:36] LABS: dsDNA Ab, IgG <12.3 IU/mL (<30.0)
[2021-09-16 17:38] LABS: Myeloperoxidase Ab IgG <0.2 U; Proteinase 3 Ab (PR3) <0.2 U
[2021-09-16 23:50] LABS: Streptococcus Pneumoniae Ag, U Negative (Negative)
[2021-09-17 15:02] LABS: Fungitell Qualitative Indeterminate (Negative); Fungitell Quantitative Value 65 pg/mL (<60 pg/mL)
[2021-09-20 16:04] LABS: ANA Interpretation Positive (Negative)
[2021-09-29 11:26] LABS: Blastomyces Ab, EIA Negative (Negative)
== END 2021-09-15 18:06 | disposition home or self-care (01) ==
LOC: LBN 18:05
PROVIDERS: PCP Nurse Practitioner Family; Visit Provider Student in an Organized Health Care Education/Training Program
DX: J98.4 Other disorders of lung (principal)
CPT/HCPCS: 84145; 86200; 86612; 87305; 87449; 83516; 86038; 86225; 86431; 87385; 87899

== ENCOUNTER 2021-09-20 17:58 | Outpatient (REF) | payer MEDICARE, SELFPAY ==
[2021-09-20 09:50] LABS: Source Nasal/Nares
[2021-09-20 10:58] LABS: Procalcitonin < 0.1 ng/mL
[2021-09-20 15:24] LABS: COVID-19 PCR Negative (Negative)
== END 2021-09-20 17:59 | disposition home or self-care (01) ==
LOC: LBN 17:58
PROVIDERS: PCP Nurse Practitioner Family; Visit Provider Student in an Organized Health Care Education/Training Program
DX: J98.4 Other disorders of lung (principal); Z20.822 Contact with and (suspected) exposure to COVID-19
CPT/HCPCS: 84145; 87635

== ENCOUNTER 2021-09-21 06:09 | Day surgery (SDC) | payer MEDICARE, SELFPAY ==
[2021-09-21] VITALS (8 sets, daily range): BP systolic 98–126; BP diastolic 65–84; PULSE 83–103; RESP 15–20; TEMP 36.3–36.9; O2SAT 93–98; BMI 15.2
[2021-09-21] MEDS: Lactated Ringers 1,000 ML 30 ML IV (06:45)
--- NOTE | 2021-09-21 06:59 | W.ANESPRE ---
General Info Date of Service Date Performed: 09/21/21 Height: 5 ft 4.17 in Weight: 40.5 kg Body Mass Index (BMI): 15.2 Surgical Procedure: Operation Date: 09/21/21 07:40 Proposed Procedure Side Surgeon p Flexible Bronchoscopy w/BAL, Endobronchial Brushings Viviana Benavides MD Meds Allergies and Home Medications Allergies Allergy/AdvReac Type Severity Reaction Status Date / Time No Known Allergies Allergy Unverified 09/21/21 06:30 Home Medication Medication Instructions Recorded glucosamine sulfate dipotassium Cl 1 ea PO DAILY 11/20/12 500 mg-chondroitin 400 mg capsule (Glucosamine Sulfate 2 KCL-Chondroitin) tiotropium bromide 18 mcg capsule 1 puff inhalation DAILY 11/20/12 with inhalation device (Spiriva with HandiHaler) oxybutynin chloride 5 mg tablet 10 mg PO DAILY 02/13/14 ke-4-wtj-epa-fish oil-vit D3 900 1 ea PO DAILY 05/12/14 mg-1,000 unit capsule albuterol sulfate 90 mcg/actuation 2 puff inhalation .Q4-6H PRN PRN 01/26/17 aerosol inhaler (Ventolin HFA) cetirizine 10 mg tablet 10 mg PO DAILY 11/11/20 mirtazapine 7.5 mg tablet 7.5 mg PO DAILY 11/11/20 omeprazole 20 mg capsule,delayed 20 mg PO DAILY 11/11/20 release zaleplon 10 mg capsule 10 mg PO HS 11/11/20 fluticasone 500 mcg-salmeterol 50 1 inh inhalation BID 03/01/21 mcg/dose blistr powdr for inhalation (Advair Diskus) guaifenesin 600 mg tablet, 1,200 mg PO BID #60 tabs 06/08/21 extended release 12 hr (Mucinex) elderberry fruit 200 mg capsule 200 mg PO DAILY 08/19/21 tiotropium 2.5 mcg-olodaterol 2.5 2 puff inhalation DAILY #4 grams 09/15/21 mcg/actuation mist for inhalation (Stiolto Respimat) Current Visit Medications: Current Medications Generic Name Dose Route Start Last Admin Trade Name Freq PRN Reason Stop Dose Admin Ringer's Solution 1,000 mls @ 30 mls/hr 09/21/21 06:00 07/12/22 06:45 IV 10/20/21 23:59 30 mls/hr INFUSION ROGELIO Administration IV Miscellaneous Supplies 1 each 09/21/21 06:00 Iv Access IV 10/20/21 23:59 DIRECTED ROGELIO Sodium Chloride 0 ml 09/21/21 06:00 Normal Saline Flush 10 Ml Syr IV 10/20/21 23:59 PRN PRN Sodium Chloride 0 ml 09/21/21 06:00 Normal Saline 10 Ml Vial IJ 10/20/21 23:59 DIRECTED PRN Sterile Water 0 ml 09/21/21 06:00 Water,Injection,Sterile 10 Ml Vial IJ 10/20/21 23:59 DIRECTED PRN PFSH Active Problems Active Problems: Problem Status Onset Code COPD (chronic obstructive pulmonary disease) J44.9 Tobacco use Z72.0 Chest pain R07.9 Vomiting R11.10 Cavitary lesion of lung J98.4 Medical History Medical History Bronchiectasis Central perforation of tympanic membrane, 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 HSIL (high grade squamous intraepithelial lesion) on Pap smear of cervix Hypotension Nicotine dependence, cigarettes, uncomplicated Postoperative examination Preop examination Pulmonary nodules Surgical History Surgical History (Updated 09/21/21 @ 06:30 by Rima Hassan RN) Femur fracture, left H/O cone biopsy of cervix 02/10/21. 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, H/O varicose vein ligation H/O vein stripping History of back surgery Hx of appendectomy Hx of cholecystectomy S/P LEEP Tobacco Smoking/Tobacco Use Status: Current every day Tobacco Type: cigarettes Alcohol Alcohol Intake: never Substance Use Substance use: Occasionally Substance use type: marijuana Details: reports last smoked marijuana about a month ago Vital Signs and Lab Results Vital Signs Most Recent Vital Signs in EMR: Most Recent Vital Signs Temp Pulse Resp BP Pulse Ox 36.7 C 103 H 20 120/80 96 09/21/21 06:22 09/21/21 06:22 09/21/21 06:22 09/21/21 06:22 09/21/21 06:22 Lab Results Blood Type / Crossmatch: No Data to Display Complete Blood Count: No Data to Display Complete Metabolic Panel: No Data to Display Liver Function Panel: No Data to Display Coagulation Panel: No Data to Display Cardiac Panel: No Data to Display Arterial Blood Gas: No Data to Display Venous Blood Gas: No Data to Display Pancreas Panel: No Data to Display Thyroid Panel: No Data to Display Infectious Disease: Coronavirus (COVID-19)(PCR) Negative (Negative) 09/20/21 08:30 Coronavirus 2019 Source Nasal/Nares 09/20/21 08:30 Blood Cultures: No Data to Display Toxicology Panel: No Data to Display Imaging and Studies Imaging and Studies Study information below may be from another EMR and interpreted by another provider. Please see original notes in EMR for more complete details. EKG Summary: Conclusion Sinus rhythm...normal P axis, V-rate 60- 99 Consider anteroseptal infarct...Q >30mS, dimin R, V1-V2. Sinus. Normal axis. No STEMI. I have reviewed and interpreted ECG and agree with software generated interpretation. Anesthesia Assessment and Plan Anesthesia History Personal History: No History of Anesthesia Complications Family History: No Family History of Anesthesia Complications Exercise Tolerance Exercise Tolerance: Metabolic Equivalents<4 Pertinent Negatives Pertinent Negatives: No Major Cardiovascular Symptoms or Complaints Cardiac & Pulmonary Exam Cardiac Exam: Normal S1/S2 Heart Sounds Pulmonary Exam: Wheezing Present and Rhonchi Present Implantable Cardiac Device Does patient have a Pacemaker or an ICD?: No Airway Exam Known Difficult Airway: No Mallampati Class: 1 Mouth Opening: Normal (> 3cm) Thyromental Distance: Greater than 3 cm Neck Range of Motion: Full ROM Neck Circumference: Normal Teeth Condition: Removable Dentures/Plates Upper and Removable Dentures/Plates Lower ASA Classification ASA Score: ASA 3 Emergency Case?: No NPO Status NPO Status: NPO Clears >2 hours, Solids >8 hours Anesthesia Plan Resuscitation Status: Full Code Anesthesia Technique: General Anesthesia Airway Planned: Endotracheal Tube Monitors Used: Standard Monitors Preoperative Comments:: GERD: increased symptoms, increased medication last week Plan for preoperative nebulizer, active smoker. Patient has both cold hands and ears, was able to get accurate pulse ox reading on nose.
[2021-09-21] MEDS: Lidocaine 1% Pres-Free 30 ML VIAL (08:20)
--- NOTE | 2021-09-21 08:23 | PAPNONF_PTH ---
PATIENT: Sandy Hernández LOC: [facility] U#:[id number] AGE/SX: 66/F ROOM: RE09/21/[address]: Viviana Benavides MD : 1955 BED: DIS: 09/21/2021 SPEC #: [id number] RECD: 09/21/21 12:54 STATUS: ENA REQ #: [id number] IKER: 09/21/21 08:[address]: Viviana Benavides DEPT: [facility] Cytology RECD BY: Chiquis Veras ENTERED: 09/21/21 12:55 SP TYPE: YFN OTTO DR: Danay Mckeon Tissues: 1 - BODY FLUID CYTO(NOT S/U/N/EM)[facility] 2 - BODY FLUID CYTO(NOT S/U/N/EM)[facility] 3 - BODY FLUID CYTO(NOT S/U/N/EM)[facility] 4 - BODY FLUID CYTO(SPUTUM/URINE)[facility] Procedures: BODY FLUID CYTO(NOT SPU/UR/NIP/ENDOM)[facility] BODY FLUID CYTO(URINE/SPUTUM) Comments: [id number] (ALL SAMPLES SENT FRESH)
--- NOTE | 2021-09-21 08:23 | BRONCH_PTH ---
PATIENT: Sandy Hernández LOC: [facility] U#:[id number] AGE/SX: 66/F ROOM: RE09/21/[address]: Viviana Benavides MD : 1955 BED: DIS: 09/21/2021 SPEC #: [id number] RECD: 09/21/21 12:05 STATUS: ENA REYolande #: [id number] IKER: 09/21/21 08:[address]: Viviana Benavides DEPT: Surgical Specimen RECD BY: Chiquis Veras ENTERED: 09/21/21 12:06 SP TYPE: Bronch Bx OTHR DR: Danay Mckeon Tissues: 1 - BRONCHUS BIOPSY Procedures: GROSS AND MICRO LEVEL 4 SPECIAL STAIN 1 Comments: [id number]
[2021-09-21] MEDS: Normal Saline Flush 10 ML SYR IV (09:30)
--- NOTE | 2021-09-21 10:05 | W.PM.OP ---
Date of service: 09/21/21 Time of Service: 07:45 Operative Note Operative Note PRE-OP DIAGNOSIS: Cavitary lung lesion POST-OP DIAGNOSIS: same PROCEDURE: Flexible bronchoscopy with BAL, bronchial washings, endobronchial brushings of right mainstem bronchus and of RLL endobronchial nodule. Refer to Anesthesia Record Procedure Description: Bronchoscopy Date:09/21/21 Time:0730 Indication:Cavitary lung lesion Procedure performed: Flexible bronchoscopy with BAL, bronchial washings, endobronchial brushings Sedation plan: General anesthesia Medications used: see anesthesia record Informed consent was obtained after the risks and benefits or the procedure were discussed. Anesthesia sedated and intubated the patient. A proper and complete OR compliant time out was performed. The therapeutic 6.2mm Olympus bronchoscope was inserted through the endotracheal tube. The bronchoscope was inserted into the airways, were 1cc in total of 1% topical lidocaine was used the anesthetize the QUAN for the BAL. The trachea was midline and without lesion or injury. The mucosa appeared normal and there were no signs of tracheomalacia. The jere was sharp. All bronchial subsegments were visualized within each lobe and showed copious white to yellow thick mucus that was therapeutically suctioned as bronchial washings. After mucus suctioning, I directed the scope to the right mainstem bronchus where 8-10 passes of the Percepta brush was passed and processed to be sent out. A bronchoalveolar lavage was performed in the QUAN. A total of 120 cc of saline was administered with a return of 40 cc. The fluid was slightly cloudy in appearance with cellularity. I re-examined the airway and found an endobronchial nodule in the RLL that on narrow band found vascularity. 8-10 passes with an endobronchial brush was passed over this nodule to send for cytology. There was no signs of active bleeding after these procedures. The bronchoscope was then removed and the case terminated. The patient was taken to PACU in stable condition. Samples collected:Bronchial washings, RLL endobronchial nodule brushing, right main stem brushing, QUAN BAL Testing ordered: Differential, bacterial, AFB and fungal culture, pathology Complications:None Viviana Benavides MD Pulmonary & Critical Care Medicine
--- NOTE | 2021-09-21 10:21 | W.ANESPOSTOP ---
Postoperative Evaluation Date, Time and Location Date Performed: 09/21/21 Time Performed: 10:21 Patient Location: Day Surgery Unit Vital Signs Most Recent Imported Vital Signs: Most Recent Vital Signs Temp Pulse Resp BP Pulse Ox 36.3 C L 85 20 98/69 L 93 09/21/21 09:20 09/21/21 09:20 09/21/21 09:20 09/21/21 09:20 09/21/21 09:20 Pain Score Most Recent Pain Score: Most Recent Pain Score Pain Level 0 09/21/21 09:20 Assessment Mental Status: Awake (Alert & Oriented to Patient Baseline) Airway and Respiratory Function: Patent airway with normal (patient baseline) respiratory exam Cardiovascular Function: Hemodynamically Stable Hydration Status: Adequately Hydrated Nausea & Vomiting: No Nausea or Vomiting Pain: Pt. Denies Any Pain Peripheral Nerve Block: Patient did not receive a nerve block
--- NOTE | 2021-09-21 10:56 | W.ANESPOSTOP ---
Postoperative Evaluation Date, Time and Location Date Performed: 09/21/21 Time Performed: 09:40 Patient Location: Day Surgery Unit Vital Signs Most Recent Imported Vital Signs: Most Recent Vital Signs Temp Pulse Resp BP Pulse Ox 36.6 C 83 18 98/65 L 94 09/21/21 09:55 09/21/21 09:55 09/21/21 09:55 09/21/21 09:55 09/21/21 09:55 Most Recent Vital Signs Temp Pulse Resp BP Pulse Ox 36.3 C L 85 20 98/69 L 93 09/21/21 09:20 09/21/21 09:20 09/21/21 09:20 09/21/21 09:20 09/21/21 09:20 Pain Score Most Recent Pain Score: Most Recent Pain Score Pain Level 0 09/21/21 09:55 Assessment Mental Status: Awake (Alert & Oriented to Patient Baseline) Airway and Respiratory Function: Patent airway with normal (patient baseline) respiratory exam Cardiovascular Function: Hemodynamically Stable Hydration Status: Adequately Hydrated Nausea & Vomiting: No Nausea or Vomiting Pain: Pt. Denies Any Pain Peripheral Nerve Block: Patient did not receive a nerve block
[2021-09-24 08:38] LABS: Gram Smear Result Neutrophils Present
[2021-09-24 10:45] LABS: Lymphocytes Fluid Relative 5 %; Neutrophils Fluid Relative 79 %
[2021-09-24 10:46] LABS: Mono/Macrophage Fluid Relative 16 %
[2021-10-20 09:18] LABS: Fungus Smear No Fungi Seen
[2021-10-20 09:22] LABS: Fungus Smear No Fungi Seen
== END 2021-09-21 10:18 | disposition home or self-care (01) ==
PROVIDERS: PCP Nurse Practitioner Family; Visit Provider Student in an Organized Health Care Education/Training Program
PROC: 0BJ08ZZ Inspection of Tracheobronchial Tree, Via Natural or Artificial Opening Endoscopic (ICD-10-PCS; CPT 31622; principal; 2021-09-21 07:30)
DX: R91.8 Other nonspecific abnormal finding of lung field (principal); J98.4 Other disorders of lung; J44.9 Chronic obstructive pulmonary disease, unspecified; F17.210 Nicotine dependence, cigarettes, uncomplicated
CPT/HCPCS: 31624; 80162; 87070; 87077; 87102; 87107; 87116; 87205; 87206; 88305; 88104; 88312; J1100; J2405; J2704

== ENCOUNTER 2021-09-21 18:18 | Observation (INO) | payer MEDICARE, SELFPAY ==
[2021-09-21] VITALS (138 sets, daily range): BP systolic 85–154; BP diastolic 46–129; PULSE 87–110; RESP 9–31; TEMP 37.1–38.4; O2SAT 90–100
--- NOTE | 2021-09-21 18:15 | RT.EKG_ITS ---
APPROVED REPORT Exam: Resting ECG Reason for Exam: difficulty breathing Patient Location: E HR:101 bpm ECG Measurements Heart Rate 101 AXIS [place] 132 P 82 QRSd 76 QRS 47 QT 351 T 46 QTc 455 Conclusion Sinus tachycardia...rate> 99 Consider anteroseptal infarct...Q >30mS, dimin R, V1-V2. Sinus, normal axis, no stemi. I have reviewed and interpreted ECG and agree with software generated interpretation.
--- NOTE | 2021-09-21 18:30 | DI.RAD_ITS ---
Exam(s) XR PORTABLE CHEST AP EXAM: XR PORTABLE CHEST AP CLINICAL HISTORY: chest pain, fever, r/o acute disease. TECHNIQUE: 2D digital imaging was performed. COMPARISON: CR XR PORTABLE CHEST AP from 07/16/2021 FINDINGS: Single AP portable view. Heart size normal. Mediastinum not widened. Bilateral hyperinflation again noted. No confluent infiltrates. No pleural effusions. No pneumotho rax. IMPRESSION: COPD. However no acute pulmonary findings nor significant change compared to 07/16/2021. DATA REPOSITORY: RADIATION DOSE DELIVERED: All CT scans at this facility use at least one of these dose optimization techniques: automated exposure control; mA and/or kV adjustment per patient size (includes targeted e xams where dose is matched to clinical indication); or iterative reconstruction.
--- NOTE | 2021-09-21 18:34 | W.ED.GENAD ---
Discharge Plan Disposition Patient Disposition: HOME Condition: Stable Discharge Details Clinical Impression: Chest pain, Fever Primary Care Provider: Danay Mckeon ED Provider: Luther Jerez Home Meds and New Rx's Prescriptions: No Action fluticasone propion-salmeterol [Advair Diskus] 500-50 mcg/dose blister with device 1 inh inhalation BID Stiolto Respimat 2.5-2.5 mcg/actuation mist 2 puff inhalation DAILY Qty: 4 8RF oxybutynin chloride 5 MG tablet 10 mg PO DAILY Rx Instructions: 2 TABS DAILY.HE (FROM RECORDS) [id number]-[id number]-epa-fish oil-vit D3 1 EACH capsule 1 ea PO DAILY guaifenesin [Mucinex] 600 mg tablet extended release 12hr 1,200 mg PO BID Qty: 60 7RF Spiriva with HandiHaler 18 MCG capsule, w/inhalation device 1 puff Inhalation DAILY Glucosamine Sulf-Chondroitin 1 EACH capsule 1 ea PO DAILY albuterol sulfate [Ventolin HFA] 200 PUFF HFA aerosol inhaler 2 puff Inhalation .Q4-6H PRN PRN zaleplon 10 mg capsule 10 mg PO HS Label Comments: TAKE 1 CAPSULE BY MOUTH AT BEDTIME NEEDED cetirizine 10 mg tablet 10 mg PO DAILY omeprazole 20 mg capsule,delayed release(DR/EC) 20 mg PO DAILY mirtazapine 7.5 mg tablet 7.5 mg PO DAILY elderberry fruit 200 mg Capsule 200 mg PO DAILY Medical Decision Making <Marita Mariano DO - Last Filed: 09/21/21 20:14> 1900 -- 58-year-old female with a history of COPD and tobacco dependence with history of cavitary lesion of lung status post bronchoscopy with Dr. Dennis earlier today presents with sudden onset of left-sided chest pain at 5 PM tonight. Rectal temp 101.7. Heart rate 110s. Oxygen saturation 88% on room air and 94% on 3 L. Breath sounds equal throughout. Stat portable chest x-ray no obvious pneumothorax. There is no wheezing, rhonchi or rales. Suspect pneumonia including aspiration pneumonia, COVID, influenza. Consider ACS, PE. Will obtain screening labs, D-dimer and give fluids, Toradol for fever and IV Dilaudid for pain. 1930 --Case discussed with legislative advocate Dr. Dennis -- patient had no biopsies, only washings -- pneumonitis possible but also consider PE. Also reports not unusual to have low-grade fever for 24 hours post bronchoscopy. 1999 -- Case endorsed oncoming provider to follow-up on d dimer if positive refer for ct chest and likely plan for admission if unable to titrate off O2. Medical Records Medical records reviewed: Yes I reviewed the patient's medical records. Medical records narrative: Bronchoscopy - Dr. Benavides Date:09/21/21? Time:729 Indication:Cavitary lung lesion ? Procedure performed: Flexible bronchoscopy with BAL, bronchial washings, endobronchial brushings ? ? Sedation plan: General anesthesia Medications used: see anesthesia record? ? ? Informed consent was obtained after the risks and benefits or the procedure were discussed. Anesthesia sedated and intubated the patient. A proper and complete OR compliant time out was performed. The therapeutic 6.2mm Olympus bronchoscope was inserted through the endotracheal tube. The bronchoscope was inserted into the airways, were 1cc in total of 1% topical lidocaine was used the anesthetize the QUAN for the BAL. The trachea was midline and without lesion or injury. The mucosa appeared normal and there were no signs of tracheomalacia. The jere was sharp. All bronchial subsegments were visualized within each lobe and showed copious white to yellow thick mucus that was therapeutically suctioned as bronchial washings. After mucus suctioning, I directed the scope to the right mainstem bronchus where 8-10 passes of the Percepta brush was passed and processed to be sent out. A bronchoalveolar lavage was performed in the QUAN. A total of 120 cc of saline was administered with a return of 40 cc. The fluid was slightly cloudy in appearance with cellularity. I re-examined the airway and found an endobronchial nodule in the RLL that on narrow band found vascularity. 8-10 passes with an endobronchial brush was passed over this nodule to send for cytology. There was no signs of active bleeding after these procedures. The bronchoscope was then removed and the case terminated. The patient was taken to PACU in stable condition. Samples collected:Bronchial washings, RLL endobronchial nodule brushing, right main stem brushing, QUAN BAL Testing ordered: Differential, bacterial, AFB and fungal culture, pathology Complications:None Imaging Data Radiologic Study: Radiologist's impression: XR Chest Exam date and time: 09/21/2021 6:29 PM Age: 66 years old Clinical indication: Other: Chest pain, fever, R/O acute disease TECHNIQUE: Imaging protocol: Radiologic exam of the chest. Views: 1 view. COMPARISON: CT CHEST/ABD/PEL WO 08/19/2021 4:20 PM FINDINGS: Lungs: There is pulmonary hyperlucency, hyperinflation and diffuse coarsening of the interstitial pulmonary markings suggesting underlying chronic lung disease. Emphysema with COPD is suspected. No superimposed pulmonary consolidation is demonstrated. Pleural spaces: No pleural effusion or pneumothorax is seen. Heart/Mediastinum: Heart size is normal. Bones/joints: The visualized bony structures appear grossly intact. Osteophytes are noted along the thoracic spinal margin. IMPRESSION: Emphysema with probable COPD. No pulmonary consolidation demonstrated. Lab Data Lab results reviewed: Yes I reviewed the patient's lab results. ECG Data Attestation: I personally reviewed and interpreted this ECG (s) as follows: Interpretation: Rate of 101, sinus, no STEMI. <Luther Jerez MD - Last Filed: 09/21/21 22:17> Medical Records Medical records narrative: Bronchoscopy - Dr. Benavides Date:09/21/21? Time:729 Indication:Cavitary lung lesion ? Procedure performed: Flexible bronchoscopy with BAL, bronchial washings, endobronchial brushings ? ? Sedation plan: General anesthesia Medications used: see anesthesia record? ? ? Informed consent was obtained after the risks and benefits or the procedure were discussed. Anesthesia sedated and intubated the patient. A proper and complete OR compliant time out was performed. The therapeutic 6.2mm Olympus bronchoscope was inserted through the endotracheal tube. The bronchoscope was inserted into the airways, were 1cc in total of 1% topical lidocaine was used the anesthetize the QUAN for the BAL. The trachea was midline and without lesion or injury. The mucosa appeared normal and there were no signs of tracheomalacia. The jere was sharp. All bronchial subsegments were visualized within each lobe and showed copious white to yellow thick mucus that was therapeutically suctioned as bronchial washings. After mucus suctioning, I directed the scope to the right mainstem bronchus where 8-10 passes of the Percepta brush was passed and processed to be sent out. A bronchoalveolar lavage was performed in the QUAN. A total of 120 cc of saline was administered with a return of 40 cc. The fluid was slightly cloudy in appearance with cellularity. I re-examined the airway and found an endobronchial nodule in the RLL that on narrow band found vascularity. 8-10 passes with an endobronchial brush was passed over this nodule to send for cytology. There was no signs of active bleeding after these procedures. The bronchoscope was then removed and the case terminated. The patient was taken to PACU in stable condition. Samples collected:Bronchial washings, RLL endobronchial nodule brushing, right main stem brushing, QUAN BAL Testing ordered: Differential, bacterial, AFB and fungal culture, pathology Complications:None Lab Data Lab results reviewed: Yes I reviewed the patient's lab results. Lab results narrative: Received signout from Dr. Mariano for please see her note regarding details of initial presentation, exam and plan of care. Patient's D-dimer was significantly elevated and she was referred for CT of the chest. This reveal a left upper lobe pneumonia, there is also 7 mm left lower and 5 mm right lower lobe pulmonary nodule. Zosyn initiated for probable bronchoscopy related aspiration pneumonia. Case discussed with on-call hospitalist and patient to be admitted. Labs: Laboratory Results - last 24 hr 09/21/21 09/21/21 09/21/21 18:40 18:40 18:41 WBC 15.24 H RBC 4.35 Hgb 14.0 Hct 41.5 MCV 95 MCH 32.2 MCHC 33.7 RDW 13.1 Plt Count 197 MPV 11.0 Immature Gran % 0.4 Neutrophils % 87.8 Lymphocytes % 6.0 Monocytes % 5.7 Eosinophils % 0.0 Basophils % 0.1 Nucleated RBC % 0.0 Absolute Neutrophils 13.38 H Absolute Lymphocytes 0.91 L Absolute Monocytes 0.87 H Absolute Eosinophils 0.00 Absolute Basophils 0.02 D-Dimer VBG Lactate Sodium 139 Potassium 4.6 Chloride 102 Carbon Dioxide 27.9 Anion Gap 9.1 BUN 19 H Creatinine 0.7 Estimated GFR/1.73 m2 >= 60.00 Glucose 112 H Calcium 9.7 Magnesium 1.9 Total Bilirubin 0.4 AST 34 ALT 28 Alkaline Phosphatase 83 Troponin I < 50 Total Protein 8.8 H Albumin 3.8 Urine Color Urine Clarity Urine pH Ur Specific [place] Urine Protein Urine Ketones Urine Blood Urine Nitrite Urine Bilirubin Urine Urobilinogen Ur Leukocyte Esterase Urine Glucose COVID-19 Source Nasal/Nares SARS-CoV-2 (PCR) Negative 09/21/21 09/21/21 09/21/21 18:57 19:20 20:45 WBC RBC Hgb Hct MCV MCH MCHC RDW Plt Count MPV Immature Gran % Neutrophils % Lymphocytes % Monocytes % Eosinophils % Basophils % Nucleated RBC % Absolute Neutrophils Absolute Lymphocytes Absolute Monocytes Absolute Eosinophils Absolute Basophils D-Dimer 2034 H VBG Lactate 1.6 H Sodium Potassium Chloride Carbon Dioxide Anion Gap BUN Creatinine Estimated GFR/1.73 m2 Glucose Calcium Magnesium Total Bilirubin AST ALT Alkaline Phosphatase Troponin I Total Protein Albumin Urine Color Yellow Urine Clarity Clear Urine pH 6.0 Ur Specific [place] 1.025 Urine Protein Negative Urine Ketones Negative Urine Blood Negative Urine Nitrite Negative Urine Bilirubin Negative Urine Urobilinogen 0.2 Ur Leukocyte Esterase Negative Urine Glucose Negative COVID-19 Source SARS-CoV-2 (PCR) HPI <Marita Mariano, - Last Filed: 09/21/21 20:14> General Mode of arrival: ambulatory. Date/Time Provider Initiated Documentation: 09/21/21 18:18. Limitations to Documentation: no limitations. Information obtained by: patient. HPI Narrative: Patient is a 66-year-old female with a history of COPD, tobacco dependence, with cavitary lesion of lung status post bronchoscopy with Dr. Dennis earlier today presents for left-sided chest pain that started at 5 PM tonight. Patient denies any known fever, cough, shortness of breath, vomiting or dizziness. She states she did not call Dr. Dennis's office and came here directly. She took 650 mg of Tylenol prior to arrival at 6 PM without relief. Related Data Home Medications Medication Instructions Recorded Confirmed glucosamine sulfate dipotassium Cl 1 ea PO DAILY 11/20/12 09/21/21 500 mg-chondroitin 400 mg capsule (Glucosamine Sulfate 2 KCL-Chondroitin) tiotropium bromide 18 mcg capsule 1 puff inhalation DAILY 11/20/12 09/21/21 with inhalation device (Spiriva with HandiHaler) oxybutynin chloride 5 mg tablet 10 mg PO DAILY 02/13/14 09/21/21 [id number]-[id number]-epa-fish oil-vit D3 900 1 ea PO DAILY 05/12/14 09/21/21 mg-1,000 unit capsule albuterol sulfate 90 mcg/actuation 2 puff inhalation .Q4-6H PRN PRN 01/26/17 09/21/21 aerosol inhaler (Ventolin HFA) cetirizine 10 mg tablet 10 mg PO DAILY 11/11/20 09/21/21 mirtazapine 7.5 mg tablet 7.5 mg PO DAILY 11/11/20 09/21/21 omeprazole 20 mg capsule,delayed 20 mg PO DAILY 11/11/20 09/21/21 release zaleplon 10 mg capsule 10 mg PO HS 11/11/20 09/21/21 fluticasone 500 mcg-salmeterol 50 1 inh inhalation BID 03/01/21 09/21/21 mcg/dose blistr powdr for inhalation (Advair Diskus) guaifenesin 600 mg tablet, 1,200 mg PO BID #60 tabs 06/08/21 09/21/21 extended release 12 hr (Mucinex) elderberry fruit 200 mg capsule 200 mg PO DAILY 08/19/21 09/21/21 tiotropium 2.5 mcg-olodaterol 2.5 2 puff inhalation DAILY #4 grams 09/15/21 09/21/21 mcg/actuation mist for inhalation (Stiolto Respimat) Previous Rx's Medication Instructions Recorded guaifenesin 600 mg tablet, 1,200 mg PO BID #60 tabs 06/08/21 extended release 12 hr (Mucinex) tiotropium 2.5 mcg-olodaterol 2.5 2 puff inhalation DAILY #4 grams 09/15/21 mcg/actuation mist for inhalation (Stiolto Respimat) Allergies Allergy/AdvReac Type Severity Reaction Status Date / Time No Known Allergies Allergy Unverified 09/21/21 06:30 General Stated Complaint: RespSymp FILOMENA: 2 Review of Systems <Marita Mariano DO - Last Filed: 09/21/21 20:14> All systems reviewed & are unremarkable except as noted in HPI and below Constitutional Constitutional: Denies chills, Denies excessive sweating, Denies fatigue, Denies fever(s), Denies weakness and Denies weight loss Eyes Eyes: Reports system reviewed and no additional complaints, except as documented and Denies blurry vision ENT Ears, Nose, Mouth, and Throat: Denies vertigo, Denies dizziness, Denies otalgia, Denies nasal congestion, Denies sore throat and Denies throat swelling Cardiovascular Cardiovascular: Reports chest pain, Denies syncope, Denies rapid heart rate and Denies dyspnea Respiratory Respiratory: Denies chest congestion, Denies cough, Denies pain on inspiration and Denies dyspnea Gastrointestinal Gastrointestinal: Denies abdominal pain, Denies diarrhea and Denies vomiting Genitourinary Genitourinary: Denies hematuria, Denies dysuria and Denies flank pain Musculoskeletal Musculoskeletal: Denies back pain and Denies joint swelling Integumentary/Breasts Skin/Breast: Denies lesions and Denies rash Neurologic Neurologic: Denies behavioral changes, Denies confusion, Denies vertigo, Denies dizziness, Denies syncope, Denies localized weakness and Denies weakness Psychiatric Psychiatric: Denies behavioral changes, Denies confusion and Denies depression Endocrine Endocrine: Denies excessive sweating and Denies fatigue Hematologic/Lymphatic Hematologic/Lymphatic: Denies easy bruising and Denies lymphadenopathy Allergic/Immunologic Allergic/Immunologic: Denies throat swelling PFSH <Marita Mariano DO - Last Filed: 09/21/21 20:14> All Active Problems (Updated 09/21/21 @ 20:14 by Marita Mariano DO) COPD (chronic obstructive pulmonary disease) (Chronic) Tobacco use (Acute) Chest pain (Acute) Vomiting (Acute) Cavitary lesion of lung (Acute) Chest pain (Acute) Fever (Acute) Medical History (Updated 09/21/21 @ 20:14 by Marita Mairano DO) Bronchiectasis Central perforation of tympanic membrane, 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 HSIL (high grade squamous intraepithelial lesion) on Pap smear of cervix Hypotension Nicotine dependence, cigarettes, uncomplicated Postoperative examination Preop examination Pulmonary nodules Surgical History (Updated 09/21/21 @ 06:30 by Rima Hassan RN) Femur fracture, left H/O cone biopsy of cervix 02/10/21. 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, H/O varicose vein ligation H/O vein stripping History of back surgery Hx of appendectomy Hx of cholecystectomy S/P LEEP Family History Self Unknown family medical history Social History Smoking/Tobacco Use Status: Current every day Tobacco Type: cigarettes Smoking risk assessment performed?: Yes Alcohol Intake: never Drug use: Occasionally Substance use type: marijuana Details: reports last smoked marijuana about a month ago Do you feel safe at home: Yes Do you feel safe in your relationship?: Yes Additional Social history: unable to assess privately Exam <Marita Mariano DO - Last Filed: 09/21/21 20:14> Const General: cooperative and healthy appearing Orientation: alert and awake HENNC Head: normal to inspection Ears: hearing grossly normal bilaterally, external ears normal and TM's normal bilaterally General nose exam: external nose normal Face and sinus: normal facial exam Mouth: oral mucosae normal Teeth and gingiva: dentition normal Throat: posterior oropharynx normal Eyes General: appearance normal, both eyes and all related structures Eyelids: eyelids normal Pupils: PERRL EOM: EOM intact bilaterally Neck Neck: normal visual inspection Lymphatic: no lymphadenopathy noted Chest Chest: normal inspection of the chest Resp Effort & Inspection: normal respiratory effort and able to speak in complete sentences Auscultation: clear to auscultation bilaterally Cardio Rate: tachycardic Rhythm: regular rhythm GI Inspection: normal to inspection Palpation: soft, not firm, no guarding, no hepatosplenomegaly, no masses and nontender Auscultation: normal bowel sounds Back/Spine/Pelvis Back: no CVA tenderness Skin General skin exam: no rashes or lesions noted Neuro General: patient alert and patient awake Cognition: normal cognition Speech: speech normal Gait: normal gait Motor: muscle tone normal throughout Sensory Exam: no sensory deficits noted Extrem General: normal to inspection, full ROM and capillary refill normal Psych Appearance: grossly normal Mental Status: mental status grossly normal Speech and Movement: speech and movement normal Affect: normal affect Thought Process: normal Course <Marita Mariano DO - Last Filed: 09/21/21 20:14> Vital Signs Vital signs: Vital Signs Temperature 101.1 F H 09/21/21 18:23 Pulse 110 H 09/21/21 18:23 Respiratory Rate 22 09/21/21 18:23 Blood Pressure 120/60 09/21/21 18:23 Pulse Oximetry 90 L 09/21/21 18:23 Temperature 101.1 F H 09/21/21 18:23 Temperature Source Temporal Artery Scan 09/21/21 18:23 Pulse 110 H 09/21/21 18:23 Respiratory Rate 09/21/21 18:23 Blood Pressure 120/60 09/21/21 18:23 Blood Pressure Position Sitting 09/21/21 18:23 Pulse Oximetry 90 L 09/21/21 18:23 End Tidal Co2 90 09/21/21 18:23 Sign Out <Marita Mariano DO - Last Filed: 09/21/21 20:14> Sign Out Data: Sign Out Comment: Follow-up on D-dimer and if positive, refer for CT chest. If unable to titrate off oxygen, likely plan for admission for fever and hypoxia, consider aspiration pneumonia s/p bronchoscopy today. Last updated by Marita Mariano DO at 09/21/21 20:07
[2021-09-21 18:54] LABS: Source Nasal/Nares
[2021-09-21 18:58] LABS: Abs Immature Grans 0.06 10^3/uL (0.0-0.06); Absolute Basophil Count 0.02 10^3/uL (0.0-0.2); Absolute Monocyte Count 0.87 10^3/uL (0.1-0.8); Basophils % 0.1; HCT 41.5 % (36.0-46.0); Immature Grans % 0.4; MCH 32.2 pg (27.0-33.0); MCHC 33.7 % (32.0-36.0); MCV 95 fL (80-95); Monocytes % 5.7; Neutrophils % 87.8; Platelet Count 197 10^3/uL (130-400); RBC 4.35 10^6/uL (3.93-5.22); RDW 13.1 % (11.7-14.6); RDW-SD 46.6 fL; WBC 15.24 10^3/uL (4.4-10.8)
[2021-09-21 19:00] LABS: Absolute Lymphocyte Count 0.91 10^3/uL (1.2-3.4); Absolute Neutrophil Count 13.38 10^3/uL (1.2-6.7)
[2021-09-21 19:21] LABS: ALT 28 U/L (14-59); AST 34 U/L (15-37); Albumin 3.8 g/dL (3.4-5.0); Alkaline Phosphatase 83 U/L (46-116); Anion Gap 9.1 mmol/L (3-11); BUN 19 mg/dL (7-18); Bilirubin, Total 0.4 mg/dL (0.2-1.0); CO2 27.9 mmol/L (21.0-32.0); CREATININE 0.7 mg/dL (0.55-1.02); Calcium 9.7 mg/dL (8.5-10.1); Chloride 102 mmol/L (98-107); Glucose 112 mg/dL (74-106); Magnesium 1.9 mg/dL (1.8-2.4); Potassium 4.6 mmol/L (3.5-5.1); Sodium 139 mmol/L (136-145); Total Protein 8.8 g/dL (6.4-8.2); Troponin I < 50 ng/L (<or=60)
--- NOTE | 2021-09-21 19:22 | DI.VRAD_ITS ---
PROCEDURE INFORMATION: Exam: XR Chest Exam date and time: 09/21/2021 6:29 PM Age: 66 years old Clinical indication: Other: Chest pain, fever, R/O acute disease TECHNIQUE: Imaging protocol: Radiologic exam of the chest. Views: 1 view. COMPARISON: CT CHEST/ABD/PEL WO 08/19/2021 4:20 PM FINDINGS: Lungs: There is pulmonary hyperlucency, hyperinflation and diffuse coarsening of the interstitial pulmonary markings suggesting underlying chronic lung disease. Emphysema with COPD is suspected. No superimposed pulmonary consolidation is demonstrated. Pleural spaces: No pleural effusion or pneumothorax is seen. Heart/Mediastinum: Heart size is normal. Bones/joints: The visualized bony structures appear grossly intact. Osteophytes are noted along the thoracic spinal margin. IMPRESSION: Emphysema with probable COPD. No pulmonary consolidation demonstrated. Dictated and Authenticated by: David Oliveira MD. Ordering:CARRI Kirkland MD
[2021-09-21 19:38] LABS: Lactate 1.6 mmol/L (0.6-1.4)
[2021-09-21 19:50] LABS: COVID-19 PCR Negative (Negative)
[2021-09-21] MEDS: Ketorolac 30 MG/ML VIAL IVP (19:53)
[2021-09-21] MEDS: Normal Saline 250 ML 500 ML IV (19:53)
[2021-09-21] MEDS: HYDROmorphone 2 MG/ML VIAL 1 MG IVP (19:54)
[2021-09-21 20:09] LABS: D-Dimer 2034 ng/mlFEU (<500)
--- NOTE | 2021-09-21 20:15 | DI.CT_ITS ---
Exam(s) CT CHEST PE CTA EXAM: CT CHEST PE CTA CLINICAL HISTORY: CP. TECHNIQUE: Imaging Protocol: CT angiography of the chest was performed using pulmonary embolus bruno col. Multi planar reconstructions were performed. CONTRAST MATERIAL: Intravenous: Omnipaque 350 Contrast volume: 100 cc COMPARISON: CT CT CHEST/ABD/PEL WO from 08/19/2021 FINDINGS: CHEST: PULMONARY ARTERIES: There are no intraluminal filling defects to suggest acute pulmonary emboli. LUNGS: There is a new area prominent infiltrate in the anterior segment of the left upper lobe, adjac ent to the midline anterior to the great vessels and extending caudally towards the superior lingular segment. This is new when compared to 08/19/2021. No associated pleural effusions.. Previously described 8 millimeter nodule in the left upper lobe is unchanged as are nodular infiltrat es just below this level in the left upper lobe. In the superior segment of the left lower lobe ther e is a 7 x 6 millimeter nodule again noted, unchanged. No new additional lung nodules on the left si de and no pleural effusion. In the opposite-right lung a nodular infiltrate in the right upper lobe is also unchanged. There is an unchanged 5 millimeter nodule in the right lower lobe. No significant findings in the right middl e lobe nor in the basal segments of the right lower lobe and there are no pleural effusions. No significant focal findings in trachea and mainstem bronchi. MEDIASTINUM: Small lymph nodes in both hilar regions. No subcarinal adenopathy. No adenopathy in th e anterior mediastinal fat. No supraclavicular adenopathy. No axillary adenopathy. Visualized thyr oid unremarkable. CARDIAC: Heart size mildly prominent. No pericardial effusion.Diameter of the ascending thoracic aor ta is within normal limits. There is no dissection. Diameter of the descending thoracic aorta is up per normal. PARTIALLY VISUALIZED UPPERMOST ABDOMEN: Gallbladder surgically absent. Calculus in left kidney parti ally included. No hydronephrosis. Gallbladder surgically absent. No adrenal masses. OSSEOUS: No significant osseous lesions.. IMPRESSION: 1. The main new finding here is a prominent area of infiltrate in the anterior segment of the left up per lobe and extending caudally to the superior lingular segment. This was not evident on prior CT s can 08/19/2021.No pleural effusions. 2. Multiple nodular infiltrates bilaterally as above, these unchanged from 08/19/2021 and will requir e continued follow-up. 3. Other findings as above. RADIATION DOSE DELIVERED: 181.59mGy.cm Total DLP DATA REPOSITORY: All CT scans at this facility are submitted to the National Radiology Data Registry (NRDR) Dose Index Registry (DIR) with the [employer] (A[employer]). RADIATION OPTIMIZATION: All CT scans at this facility use at least one of these dose optimization te chniques: automated exposure control; mA and/or kV adjustment per patient size (includes targeted exa ms where dose is matched to clinical indication); or iterative reconstruction.
[2021-09-21] MEDS: Normal Saline 1,000 ML 1000 ML IV (20:30)
[2021-09-21 20:57] LABS: Bilirubin Negative (Negative); Blood Negative (Negative); Clarity Clear (Clear); Glucose Negative (Negative); Ketones Negative (Negative); Leukocyte Esterase Negative (Negative); Nitrite Negative (Negative); Specific Gravity 1.025 (1.005-1.025); Urobilinogen 0.2 EU/dL (Up TO 0.2)
[2021-09-21] MEDS: Omnipaque 350 MG/ML 100 ML BTL IV (21:12)
[2021-09-21] MEDS: Normal Saline Flush 10 ML SYR IVP (21:43)
--- NOTE | 2021-09-21 22:14 | DI.VRAD_ITS ---
Addendum created by David Oliveira MD on 09/21/2021 10:16:35 PM EDT: This case was discussed personally with LIAT WARE at 10:16 PM EDT on 09/21/2021. Initial report created on 09/21/2021 10:13:35 PM EDT: PROCEDURE INFORMATION: Exam: CTA Chest With Contrast Exam date and time: 09/21/2021 9:40 PM Age: 66 years old Clinical indication: Other: Cp TECHNIQUE: Imaging protocol: Computed tomographic angiography of the chest with contrast. 3D rendering (Not supervised by radiologist): MIP and/or 3D reconstructed images were created by the technologist. Radiation optimization: All CT scans at this facility use at least one of these dose optimization techniques: automated exposure control; mA and/or kV adjustment per patient size (includes targeted exams where dose is matched to clinical indication); or iterative reconstruction. Contrast material: OMNIPAQUE 350; Contrast volume: 60 ml; Contrast route: INTRAVENOUS (IV); COMPARISON: CT CHEST PE CTA 11/11/2020 7:10 AM FINDINGS: Pulmonary arteries: No pulmonary embolism identified. Aorta: No thoracic aortic aneurysm or dissection. Lungs: Severe diffuse emphysema. 8 mm spiculated nodular density in the right upper lobe on image 16 of series 4, grossly stable compared with the prior exam from 2020. 6 mm spiculated density near the left apex on image 12 of series 4, also seen on the prior exam. 6 mm x 8 mm left upper lobe pulmonary nodule on image 15 of series 4, stable compared with the prior exam. 7 mm x 13 mm spiculated nodule in the left upper lobe on image 15 of series 4, new since the prior exam. Vague spiculated region in the left upper lobe on image 22 of series 4, also seen on the prior exam. 7 mm pulmonary nodule in the superior segment of the left lower lobe on image 28 of series 4, essentially new since the prior exam. Vague hazy density noted on the prior study in this region. 5 mm right lower lobe pulmonary nodule on image 33 of series 5, new since the prior exam. Moderate-large region of patchy consolidation in the anterior aspect of the left upper lobe with an appearance characteristic of pneumonia. Pleural spaces: Small left pleural effusion. No right-sided pleural effusion. No pneumothorax. Heart: Normal sized heart. Lymph nodes: No pathologically enlarged mediastinal or hilar lymph nodes. Gallbladder and bile ducts: Prior cholecystectomy with postop biliary prominence. Kidneys and ureters: 5 cm nonobstructing left renal calculus. Bones/joints: No acute fracture seen among the bones of the chest. Spinal degenerative change with discogenic degeneration and anterior osteophytes at multiple levels. Soft tissues: No gross soft tissue mass or fluid collection seen in the chest wall. IMPRESSION: 1. Left upper lobe pneumonia. 2. Small left pleural effusion. 3. Severe diffuse emphysema. 4. 3.7 mm x 13 mm spiculated nodule in the left upper lobe on image 15 of series 4, new since the prior exam. Short interval follow-up or further evaluation recommended to exclude developing small lung cancer, as per institution protocol. 5. 7 mm pulmonary nodule in the superior segment of the left lower lobe on image 28 of series 4, essentially new since the prior exam. Vague hazy density noted on the prior study in this region. Follow-up or further evaluation recommended as per institution protocol. 6. 5 mm right lower lobe pulmonary nodule on image 33 of series 5, new since the prior exam. Dictated and Authenticated by: David Oliveira MD. Ordering:CHUCK Sloan MD
--- NOTE | 2021-09-21 22:27 | HPE_ITS ---
Date of service: 09/21/21 Time of Service: 22:27 Assessment and Plan Assessment and plan (1) Aspiration pneumonia: Start date: 09/21/21 Status: Acute Assessment and plan: This is a 66-year-old lady with significant respiratory disease and tobacco use daily was being evaluated for cavitary lesion and pulmonary nodules in the left lung presenting with fever, elevated WBC and hypoxemia. She was found to have a left upper lobe infiltrate and is being treated for possible aspiration pneumonia with her recent procedure. She will continue on IV Zosyn with in patient treatment. Is following patient. (2) COPD (chronic obstructive pulmonary disease): Status: Chronic Assessment and plan: Continue aggressive respiratory treatment and oxygen as needed. Patient has advanced emphysema with continued tobacco use. Qualifiers: COPD type: emphysema Emphysema type: centrilobular Qualified Code(s): J43.2 - Centrilobular emphysema (3) Cavitary lesion of lung: Status: Chronic Assessment and plan: Continue outpatient evaluation with follow-up bronchoscopy results with pulmonology. (4) Pulmonary nodules: Assessment and plan: Continue outpatient evaluation with follow-up bronchoscopy results with pulmonology. (5) Tobacco use: Status: Chronic Assessment and plan: I strongly advised smoking cessation which is unlikely. Patient deferred nicotine patch. History of Present Illness History of Present Illness Chief Complaint: Fever and cough status post bronchoscopy Narrative: This is a 66-year-old female patient who had procedure with bronchoscopy bronchial washings as well as cultures the day of presentation returning home and had a fever with respiratory symptoms prompting evaluation in the ED. She was hypoxic when she acutely is not hypoxic and did require IV antibiotic therapy with elevated WBC along with fever. At the time I saw the patient she was more comfortable and resting with no oxygen supplementation. She is a smoker and smokes up to this hospitalization but does not wish to have nicotine patch. She is being followed by pulmonology and evaluated for cavitary lesion and spiculated lesions in her left lung. X-ray did reveal left upper lobe infiltrate patient's chronic medical problems are mostly associated with respiratory status with emphysema being advanced and continued smoking with patient following.) Occurring almost cachectic. She is a full code. Review of Systems Narrative: 13 point review of systems otherwise unrevealing or stable. 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 HSIL (high grade squamous intraepithelial lesion) on Pap smear of cervix Hypotension Nicotine dependence, cigarettes, uncomplicated Postoperative examination Preop examination Pulmonary nodules Surgical History Femur fracture, left H/O cone biopsy of cervix 02/10/21. 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, H/O varicose vein ligation H/O vein stripping History of back surgery Hx of appendectomy Hx of cholecystectomy S/P LEEP Family History Self Unknown family medical history Social History Smoking/Tobacco Use Status: Current every day Tobacco Type: cigarettes Smoking risk assessment performed?: Yes Alcohol Intake: never Drug use: Occasionally Substance use type: marijuana Details: reports last smoked marijuana about a month ago Do you feel safe at home: Yes Do you feel safe in your relationship?: Yes Additional Social history: unable to assess privately Meds Allergies and Home Medications Allergies Allergy/AdvReac Type Severity Reaction Status Date / Time No Known Allergies Allergy Unverified 09/21/21 06:30 Home Medications Medication Instructions Recorded Confirmed Type glucosamine sulfate dipotassium Cl 1 ea PO DAILY 11/20/12 09/21/21 History 500 mg-chondroitin 400 mg capsule (Glucosamine Sulfate 2 KCL-Chondroitin) oxybutynin chloride 5 mg tablet 10 mg PO DAILY 02/13/14 09/21/21 History ho-4-ndp-epa-fish oil-vit D3 900 1 ea PO DAILY 05/12/14 09/21/21 History mg-1,000 unit capsule albuterol sulfate 90 mcg/actuation 2 puff inhalation .Q4-6H PRN PRN 01/26/17 09/21/21 History aerosol inhaler (Ventolin HFA) cetirizine 10 mg tablet 10 mg PO DAILY 11/11/20 09/21/21 History mirtazapine 7.5 mg tablet 7.5 mg PO DAILY 11/11/20 09/21/21 History omeprazole 20 mg capsule,delayed 20 mg PO DAILY 11/11/20 09/21/21 History release zaleplon 10 mg capsule 10 mg PO HS 11/11/20 09/21/21 History guaifenesin 600 mg tablet, 1,200 mg PO BID #60 tabs 06/08/21 09/21/21 Rx extended release 12 hr (Mucinex) elderberry fruit 200 mg capsule 200 mg PO DAILY 08/19/21 09/21/21 History tiotropium 2.5 mcg-olodaterol 2.5 2 puff inhalation DAILY #4 grams 09/15/21 09/21/21 Rx mcg/actuation mist for inhalation (Stiolto Respimat) amoxicillin 500 mg-potassium 1 tab PO BID #14 tabs 09/22/21 Rx clavulanate 125 mg tablet (Augmentin) Exam Narrative Exam Narrative: General: Patient appears older than stated age, almost cachectic and very thin, alert and oriented x3 and in no acute distress. HEENT: Normocephalic, eyes with pupils equal and reactive to light symmetrically, extraocular movements intact with sclera anicteric. Oropharynx with dry mucosa. Neck: Supple without JVD. Back: Slightly kyphotic without CVA tenderness. Lung: Bronchovesicular breath sound diffusely with decreased aeration over most lung foley and no focalizing rales or rhonchi. No expiratory wheeze. Heart: Regular rate and rhythm with no appreciable murmur or gallop. Breast: Exam deferred. Abdomen: Scaphoid contour, soft to palpation with no palpable genitalia/rectal: Exam deferred Extremities: Without clubbing, cyanosis or pitting edema. Skin: Decreased turgor, warm and dry with actinic changes over sun exposed areas. Neuro: Cranial nerves II to XII grossly intact, no focalizing motor deficits or tremor. Psych: Normal affect and mood. Remote and recent memory intact. No abnormal thought processes. Results Imaging Imaging Studies: Exam: CTA Chest With Contrast Exam date and time: 09/21/2021 9:40 PM Age: 66 years old Clinical indication: Other: Cp TECHNIQUE: Imaging protocol: Computed tomographic angiography of the chest with contrast. 3D rendering (Not supervised by radiologist): MIP and/or 3D reconstructed images were created by the technologist. Radiation optimization: All CT scans at this facility use at least one of these dose optimization techniques: automated exposure control; mA and/or kV adjustment per patient size (includes targeted exams where dose is matched to clinical indication); or iterative reconstruction. Contrast material: OMNIPAQUE 350; Contrast volume: 60 ml; Contrast route: INTRAVENOUS (IV);? COMPARISON: CT CHEST PE CTA 11/11/2020 7:10 AM FINDINGS: Pulmonary arteries: No pulmonary embolism identified. Aorta: No thoracic aortic aneurysm or dissection. Lungs: Severe diffuse emphysema. 8 mm spiculated nodular density in the right upper lobe on image 16 of series 4, grossly stable compared with the prior exam from 2020. 6 mm spiculated density near the left apex on image 12 of series 4, also seen on the prior exam. 6 mm x 8 mm left upper lobe pulmonary nodule on image 15 of series 4, stable compared with the prior exam. 7 mm x 13 mm spiculated nodule in the left upper lobe on image 15 of series 4, new since the prior exam. Vague spiculated region in the left upper lobe on image 22 of series 4, also seen on the prior exam. 7 mm pulmonary nodule in the superior segment of the left lower lobe on image 28 of series 4, essentially new since the prior exam. Vague hazy density noted on the prior study in this region. 5 mm right lower lobe pulmonary nodule on image 33 of series 5, new since the prior exam. Moderate-large region of patchy consolidation in the anterior aspect of the left upper lobe with an appearance characteristic of pneumonia. Pleural spaces: Small left pleural effusion. No right-sided pleural effusion. No pneumothorax. Heart: Normal sized heart. Lymph nodes: No pathologically enlarged mediastinal or hilar lymph nodes. Gallbladder and bile ducts: Prior cholecystectomy with postop biliary prominence. Kidneys and ureters: 5 cm nonobstructing left renal calculus. Bones/joints: No acute fracture seen among the bones of the chest. Spinal degenerative change with discogenic degeneration and anterior osteophytes at multiple levels. Soft tissues: No gross soft tissue mass or fluid collection seen in the chest wall. IMPRESSION: 1. Left upper lobe pneumonia. 2. Small left pleural effusion. 3. Severe diffuse emphysema. 4. 3.7 mm x 13 mm spiculated nodule in the left upper lobe on image 15 of series 4, new since the prior exam.? Short interval follow-up or further evaluation recommended to exclude developing small lung cancer, as per institution protocol. 5. 7 mm pulmonary nodule in the superior segment of the left lower lobe on image 28 of series 4, essentially new since the prior exam. Vague hazy density noted on the prior study in this region. Follow-up or further evaluation recommended as per institution protocol. 6. 5 mm right lower lobe pulmonary nodule on image 33 of series 5, new since the prior exam. Dictated and Authenticated by: David Oliveira MD. Labs Result diagrams: 09/22/21 06:00 09/22/21 06:00 Labs: Laboratory Results - last 24 hr 09/21/21 09/21/21 09/21/21 18:40 18:40 18:41 WBC 15.24 H RBC 4.35 Hgb 14.0 Hct 41.5 MCV 95 MCH 32.2 MCHC 33.7 RDW 13.1 Plt Count 197 MPV 11.0 Immature Gran % 0.4 Neutrophils % 87.8 Lymphocytes % 6.0 Monocytes % 5.7 Eosinophils % 0.0 Basophils % 0.1 Nucleated RBC % 0.0 Absolute Neutrophils 13.38 H Absolute Lymphocytes 0.91 L Absolute Monocytes 0.87 H Absolute Eosinophils 0.00 Absolute Basophils 0.02 D-Dimer VBG Lactate Sodium 139 Potassium 4.6 Chloride 102 Carbon Dioxide 27.9 Anion Gap 9.1 BUN 19 H Creatinine 0.7 Estimated GFR/1.73 m2 >= 60.00 Glucose 112 H Calcium 9.7 Magnesium 1.9 Total Bilirubin 0.4 AST 34 ALT 28 Alkaline Phosphatase 83 Troponin I < 50 Total Protein 8.8 H Albumin 3.8 Urine Color Urine Clarity Urine pH Ur Specific [place] Urine Protein Urine Ketones Urine Blood Urine Nitrite Urine Bilirubin Urine Urobilinogen Ur Leukocyte Esterase Urine Glucose COVID-19 Source Nasal/Nares SARS-CoV-2 (PCR) Negative 09/21/21 09/21/21 09/21/21 18:57 19:20 20:45 WBC RBC Hgb Hct MCV MCH MCHC RDW Plt Count MPV Immature Gran % Neutrophils % Lymphocytes % Monocytes % Eosinophils % Basophils % Nucleated RBC % Absolute Neutrophils Absolute Lymphocytes Absolute Monocytes Absolute Eosinophils Absolute Basophils D-Dimer 2034 H VBG Lactate 1.6 H Sodium Potassium Chloride Carbon Dioxide Anion Gap BUN Creatinine Estimated GFR/1.73 m2 Glucose Calcium Magnesium Total Bilirubin AST ALT Alkaline Phosphatase Troponin I Total Protein Albumin Urine Color Yellow Urine Clarity Clear Urine pH 6.0 Ur Specific [place] 1.025 Urine Protein Negative Urine Ketones Negative Urine Blood Negative Urine Nitrite Negative Urine Bilirubin Negative Urine Urobilinogen 0.2 Ur Leukocyte Esterase Negative Urine Glucose Negative COVID-19 Source SARS-CoV-2 (PCR) Last Vital Signs Temp 37.7 C H 09/21/21 18:49 Pulse 87 09/21/21 22:00 Resp 15 09/21/21 22:00 BP 93/53 L 09/21/21 22:00 Pulse Ox 97 09/21/21 22:00
[2021-09-21] MEDS: PIPERACILLIN/TAZO 3.375 GM in Normal Saline 50 ML IVPB (22:32)
--- NOTE | 2021-09-21 22:42 | NUR.NOTE ---
Nursing Note: at 20:30 rectal temp shows temp of 101.7. NS 1L ordered by , toradol given. s
[2021-09-21 23:01] LABS: Troponin I < 50 ng/L (<or=60)
[2021-09-21 23:23] LABS: TSH (W/Ref FT4) 0.44 uIU/mL (0.36-3.74)
[2021-09-22] VITALS (12 sets, daily range): BP systolic 82–110; BP diastolic 42–71; PULSE 85–94; RESP 2–20; TEMP 36.7–37.4; O2SAT 94–99
[2021-09-22] MEDS: Albuterol/Ipratropium 3 ML UPD VIAL UPD ×3 (01:09→11:50)
[2021-09-22] MEDS: Normal Saline Flush 10 ML SYR IVP ×2 (01:10→05:19)
[2021-09-22] MEDS: PIPERACILLIN/TAZO 3.375 GM in Normal Saline 50 ML IVPB (04:34)
[2021-09-22] MEDS: Heparin 5,000 UNITS/ML VIAL 5000 UNITS SC (05:19)
[2021-09-22 06:24] LABS: Abs Immature Grans 0.05 10^3/uL (0.0-0.06); Absolute Lymphocyte Count 1.46 10^3/uL (1.2-3.4); Absolute Neutrophil Count 13.26 10^3/uL (1.2-6.7); Basophils % 0.3; Eosinophils % 0.1; HCT 34.6 % (36.0-46.0); HGB 11.2 g/dL (11.2-15.7); Immature Grans % 0.3; Lymphocytes % 9.2; MCH 31.5 pg (27.0-33.0); MCHC 32.4 % (32.0-36.0); MCV 97 fL (80-95); Monocytes % 6.4; Neutrophils % 83.7; Platelet Count 126 10^3/uL (130-400); RBC 3.56 10^6/uL (3.93-5.22); RDW 13.2 % (11.7-14.6); RDW-SD 47.9 fL; WBC 15.84 10^3/uL (4.4-10.8)
[2021-09-22 06:27] LABS: Absolute Basophil Count 0.05 10^3/uL (0.0-0.2); Absolute Eosinophil Count 0.02 10^3/uL (0.0-0.7); Absolute Monocyte Count 1.01 10^3/uL (0.1-0.8)
[2021-09-22 06:43] LABS: ALT 32 U/L (14-59); AST 33 U/L (15-37); Albumin 2.5 g/dL (3.4-5.0); Alkaline Phosphatase 64 U/L (46-116); Anion Gap 5.1 mmol/L (3-11); BUN 18 mg/dL (7-18); Bilirubin, Total 0.5 mg/dL (0.2-1.0); CO2 26.9 mmol/L (21.0-32.0); CREATININE 0.7 mg/dL (0.55-1.02); Calcium 8.7 mg/dL (8.5-10.1); Chloride 108 mmol/L (98-107); Glucose 114 mg/dL (74-106); Magnesium 1.7 mg/dL (1.8-2.4); Potassium 4.3 mmol/L (3.5-5.1); Sodium 140 mmol/L (136-145); Total Protein 6.1 g/dL (6.4-8.2)
--- NOTE | 2021-09-22 07:11 | PUCON_ITS ---
General Date Of Service Date of service: 09/22/21 Time of Service: 07:11 Assessment and Plan Assessment and plan (1) COPD (chronic obstructive pulmonary disease): Status: Chronic Qualifiers: COPD type: emphysema Emphysema type: centrilobular Qualified Code(s): J43.2 - Centrilobular emphysema (2) Cavitary lesion of lung: Status: Acute (3) Bronchiectasis: Qualifiers: Bronchiectasis type: uncomplicated Qualified Code(s): J47.9 - Bronchiectasis, uncomplicated (4) Tobacco use: Status: Acute (5) Chest pain: Status: Acute Assessment and plan: This is a 66 yo female who is admitted for chest pain s/p bronchoscopy. She has no pneumothorax and no ACS. She has no PE but did have an infiltrate in the QUAN, which is consistent with retained BAL fluids from the bronchoscopy. She has significant bronchiectasis and a significant amount of copious thick secretions were suctioned yesterday during the bronch. I do not this the infiltrate represents a pneumonia, and rather is consistent with expected post BAL changes. Given her bronchiectasis and copious secretions, in addition to new mucus seen in the sirways on CT treatment with a PO antibiotic, such as Augmentin, is re asonable. I am working up cavitary lung lesions, which have the potential for a fungal etiology, with an indeterminate Fungitell (which I will repeat since she is admitted). I doubt she needs the oxygen currently as her O2 goals should be 88-92%. The chest pains have resolved and she is likely safe to be discharged. COPD - continue home Stiolto - albuterol prn - Duonebs prn Hypoxia - O2 titration 88-92% Bronchiectasis - Acapella - Augmentin for 7 days Cavitary lung lesion - await bronchoscopy results History of Present Illness Narrative: This is a 66 yo female whom I performed a bronchoscopy on yesterday for a cavitary lung lesion. She has COPD and bronchiectasis. I have also PET scanned pulmonary nodule in the QUAN in the past that were consistent with chronic inflammation. Some of the lesions turned cavitary and one had the appearance of a fungus ball or aspergilloma, which it what lead to this bronchoscopy. She did well during the procedure and was discharged home from PACU with mild hypoxia (likely from the retained saline from the BAL). At home around 5pm she developed chest pain and had a low grade fever and so presented to the ER (per my directions to do so on discharge). She did have a low grade fever in the ED (normal for s/p broonch for about 24 hours). Her chest pain was assessed - her t roponins were negative and he EKG was normal. She was saturating withing reason (88% on room air) but was placed on oxygen. Her D-dimer was positive but there was no PE on the scan. She was started on Zosyn for GGO's on CT, however this infiltrate is consistent with retained BAL saline fluid. On bronchoscopy she had copious secretions that were consistent with bronchiectasis. She is now saturating mid 90's with 2 LPM O2, which can be turned off. Her vital signs are stable. She no longer has any chest pains or dyspnea and feels as though she can go home. 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 HSIL (high grade squamous intraepithelial lesion) on Pap smear of cervix Hypotension Nicotine dependence, cigarettes, uncomplicated Postoperative examination Preop examination Pulmonary nodules Surgical History Femur fracture, left H/O cone biopsy of cervix 02/10/21. 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, H/O varicose vein ligation H/O vein stripping History of back surgery Hx of appendectomy Hx of cholecystectomy S/P LEEP Family History Self Unknown family medical history Social History Smoking/Tobacco Use Status: Current every day Tobacco Type: cigarettes Smoking risk assessment performed?: Yes Alcohol Intake: never Drug use: Occasionally Substance use type: marijuana Details: reports last smoked marijuana about a month ago Do you feel safe at home: Yes Do you feel safe in your relationship?: Yes Additional Social history: unable to assess privately Visit Medication and Allergies Active Medications Generic Name Dose Route Start Last Admin Trade Name Freq PRN Reason Stop Dose Admin Acetaminophen 650 mg 09/21/21 22:28 Acetaminophen 325 Mg Tab PO Q4H PRN PRN Al Hydrox/Mg Hydrox/Simethicone 30 ml 09/21/21 22:28 Mylanta Suspension 30 Ml Cup PO Q2H PRN PRN Albuterol Sulfate 2.5 mg 09/21/21 22:28 Albuterol 2.5 Mg/3 Ml Inh Soln Vial UPD Q2H PRN PRN Albuterol/Ipratropium 3 ml 09/21/21 23:00 09/22/21 05:19 Albuterol/Ipratropium 3 Ml Upd Vial UPD 3 ml Q6H ROGELIO Administration Budesonide/Formoterol Fumarate 2 puff 09/22/21 08:30 Budesonide/Formoterol 160/4.5 6 Gm 60 Puff Inh IH BID ROGELIO Cetirizine HCl 10 mg 09/22/21 08:30 Cetirizine 10 Mg Tab PO DAILY ROGELIO Dimethicone/Zinc Oxide 0 gm 09/21/21 22:28 Elda Protect Cream 142 Gm Tube TP PRN PRN Docusate Sodium 100 mg 09/21/21 22:28 Docusate Sodium 100 Mg Cap PO TID PRN PRN Guaifenesin 1,200 mg 09/22/21 08:30 Guaifenesin 600 Mg Tabcr PO BID ROGELIO Heparin Sodium (Porcine) 5,000 units 09/22/21 06:00 09/22/21 05:19 Heparin 5,000 Units/Ml Vial SC 5,000 units Q8H ROGELIO Administration Piperacillin Sod/Tazobactam 50 mls @ 100 mls/hr 09/22/21 04:00 09/22/21 05:05 Sod 3.375 gm/ Sodium Chloride IVPB Infused Q6H ROGELIO Infusion Protocol Iohexol 100 ml 09/21/21 21:15 09/21/21 21:12 Omnipaque 350 Mg/Ml 100 Ml Btl IV 10/21/21 23:59 60 ml DIRECTED ROGELIO Administration Magnesium Hydroxide 30 ml 09/21/21 22:28 Milk Of Magnesia 30 Ml Cup PO DAILY PRN PRN Mirtazapine 7.5 mg 09/22/21 08:30 Mirtazapine 15 Mg Tab PO DAILY ROGELIO Non-Formulary Medication 10 mg 09/22/21 22:00 Zaleplon PO HS ROGELIO Omeprazole 20 mg 09/22/21 08:30 Omeprazole 20 Mg Capcr PO DAILY ROGELIO Oxybutynin Chloride 10 mg 09/22/21 08:30 Oxybutynin 5 Mg Tab PO DAILY ROGELIO Polyethylene Glycol 17 gm 09/21/21 22:28 Polyethylene Glycol 3350 17 Gm Packet PO DAILY PRN PRN Constipation Sodium Chloride 250 ml 09/21/21 21:45 09/21/21 21:40 Normal Saline 250 Ml Bag IV 50 ml DIRECTED ROGELIO Administration Sodium Chloride 10 ml 09/21/21 21:43 09/22/21 05:19 Normal Saline Flush 10 Ml Syr IVP 10 ml PRN PRN Administration Allergies No Known Allergies Allergy (Unverified 09/21/21 06:30) Exam Narrative Exam Narrative: Gen: NAD, normal respiratory effort, well-nourished HENT: PERRL, nasal turbinates normal without erythema or inflammation, moist oral mucosa, Mallampati 2, No LAD or JVD Chest: No respiratory distress, normal appearance of chest, clear to auscultation bilaterally, no crackles or wheezes, normal inspiratory effort Heart: regular rate and rhythym, no murmurs, rubs or gallops Abdomen: Non-distended, soft, non tender Extremities: No clubbing, edema, cyanosis, rashes Neuro: AAOx3 , non focal Psych: cooperative, appropriate mental affect Results Last Vital Signs Temp 36.7 C 09/22/21 02:54 Pulse 88 09/22/21 02:54 Resp 20 09/22/21 02:54 BP 110/69 09/22/21 02:54 Pulse Ox 96 09/22/21 02:54 Labs Result diagrams: 09/22/21 06:00 09/22/21 06:00 Labs: Laboratory Results - last 24 hr 09/21/21 09/21/21 09/21/21 18:40 18:40 18:41 WBC 15.24 H RBC 4.35 Hgb 14.0 Hct 41.5 MCV 95 MCH 32.2 MCHC 33.7 RDW 13.1 Plt Count 197 MPV 11.0 Immature Gran % 0.4 Neutrophils % 87.8 Lymphocytes % 6.0 Monocytes % 5.7 Eosinophils % 0.0 Basophils % 0.1 Nucleated RBC % 0.0 Absolute Neutrophils 13.38 H Absolute Lymphocytes 0.91 L Absolute Monocytes 0.87 H Absolute Eosinophils 0.00 Absolute Basophils 0.02 D-Dimer VBG Lactate Sodium 139 Potassium 4.6 Chloride 102 Carbon Dioxide 27.9 Anion Gap 9.1 BUN 19 H Creatinine 0.7 Estimated GFR/1.73 m2 >= 60.00 Glucose 112 H Calcium 9.7 Magnesium 1.9 Total Bilirubin 0.4 AST 34 ALT 28 Alkaline Phosphatase 83 Troponin I < 50 Total Protein 8.8 H Albumin 3.8 TSH Urine Color Urine Clarity Urine pH Ur Specific [place] Urine Protein Urine Ketones Urine Blood Urine Nitrite Urine Bilirubin Urine Urobilinogen Ur Leukocyte Esterase Urine Glucose COVID-19 Source Nasal/Nares SARS-CoV-2 (PCR) Negative 09/21/21 09/21/21 09/21/21 18:57 19:20 20:45 WBC RBC Hgb Hct MCV MCH MCHC RDW Plt Count MPV Immature Gran % Neutrophils % Lymphocytes % Monocytes % Eosinophils % Basophils % Nucleated RBC % Absolute Neutrophils Absolute Lymphocytes Absolute Monocytes Absolute Eosinophils Absolute Basophils D-Dimer 2034 H VBG Lactate 1.6 H Sodium Potassium Chloride Carbon Dioxide Anion Gap BUN Creatinine Estimated GFR/1.73 m2 Glucose Calcium Magnesium Total Bilirubin AST ALT Alkaline Phosphatase Troponin I Total Protein Albumin TSH Urine Color Yellow Urine Clarity Clear Urine pH 6.0 Ur Specific [place] 1.025 Urine Protein Negative Urine Ketones Negative Urine Blood Negative Urine Nitrite Negative Urine Bilirubin Negative Urine Urobilinogen 0.2 Ur Leukocyte Esterase Negative Urine Glucose Negative COVID-19 Source SARS-CoV-2 (PCR) 09/21/21 09/21/21 09/22/21 22:28 22:28 06:00 WBC RBC Hgb Hct MCV MCH MCHC RDW Plt Count MPV Immature Gran % Neutrophils % Lymphocytes % Monocytes % Eosinophils % Basophils % Nucleated RBC % Absolute Neutrophils Absolute Lymphocytes Absolute Monocytes Absolute Eosinophils Absolute Basophils D-Dimer VBG Lactate Sodium 140 Potassium 4.3 Chloride 108 H Carbon Dioxide 26.9 Anion Gap 5.1 BUN 18 Creatinine 0.7 Estimated GFR/1.73 m2 >= 60.00 Glucose 114 H Calcium 8.7 Magnesium 1.7 L Total Bilirubin 0.5 AST 33 ALT 32 Alkaline Phosphatase 64 Troponin I < 50 Total Protein 6.1 L Albumin 2.5 L TSH 0.44 Urine Color Urine Clarity Urine pH Ur Specific [place] Urine Protein Urine Ketones Urine Blood Urine Nitrite Urine Bilirubin Urine Urobilinogen Ur Leukocyte Esterase Urine Glucose COVID-19 Source SARS-CoV-2 (PCR) 09/22/21 06:00 WBC 15.84 H RBC 3.56 L Hgb 11.2 D Hct 34.6 L MCV 97 H MCH 31.5 MCHC 32.4 RDW 13.2 Plt Count 126 L MPV 11.0 Immature Gran % 0.3 Neutrophils % 83.7 Lymphocytes % 9.2 Monocytes % 6.4 Eosinophils % 0.1 Basophils % 0.3 Nucleated RBC % 0.0 Absolute Neutrophils 13.26 H Absolute Lymphocytes 1.46 Absolute Monocytes 1.01 H Absolute Eosinophils 0.02 Absolute Basophils 0.05 D-Dimer VBG Lactate Sodium Potassium Chloride Carbon Dioxide Anion Gap BUN Creatinine Estimated GFR/1.73 m2 Glucose Calcium Magnesium Total Bilirubin AST ALT Alkaline Phosphatase Troponin I Total Protein Albumin TSH Urine Color Urine Clarity Urine pH Ur Specific [place] Urine Protein Urine Ketones Urine Blood Urine Nitrite Urine Bilirubin Urine Urobilinogen Ur Leukocyte Esterase Urine Glucose COVID-19 Source SARS-CoV-2 (PCR)
[2021-09-22] MEDS: guaiFENesin 600 MG TABCR 1200 MG PO (08:09)
[2021-09-22] MEDS: Cetirizine 10 MG TAB PO (08:10)
[2021-09-22] MEDS: Omeprazole 20 MG CAPCR PO (08:10)
[2021-09-22] MEDS: Oxybutynin 5 MG TAB 10 MG PO (08:10)
[2021-09-22] MEDS: Amoxicillin 500/Clav. 125 TAB PO (08:12)
[2021-09-22] MEDS: Tiotropium/Olodaterol 10 PUFF INHALER 2 PUFF IH (08:14)
--- NOTE | 2021-09-22 08:32 | INITIAL_ITS ---
- If Service Date Differs Date of service: 09/22/21 Time of Service: 08:33 Care Management Initial Assess REASON FOR HOSPITALIZATION:: Left Upper Lobe Pneuomomia. PAST MEDICAL HISTORY/PAST SURGICAL HISTORY:: All Active Problems . COPD (chronic obstructive pulmonary disease) (Chronic). Tobacco use (Acute). Chest pain (Acute). Vomiting (Acute). Cavitary lesion of lung (Acute). Chest pain (Acute). Fever (Acute). Medical History . Bronchiectasis. Central perforation of tympanic membrane, right ear. STAR II (cervical intraepithelial neoplasia II). COVID-19. Discharge planning issues. DVT prophylaxis. Fx femur shaft-open. 2918. HSIL (high grade squamous intraepithelial lesion) on Pap smear of cervix. Hypotension. Nicotine dependence, cigarettes, uncomplicated. Postoperative examination. Preop examination. Pulmonary nodules. Surgical History . Femur fracture, left. H/O cone biopsy of cervix. 02/10/21. 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 H/O varicose vein ligation. H/O vein stripping. History of back surgery. Hx of appendectomy. Hx of cholecystectomy. S/P LEEP PREVIOUS FUNCTIONAL STATUS/SOCIAL/FAMILY SUPPORTS:: Sandy lives in [facility] with her Azeem. Sandy shares that she is disabled due to her COPD. Sandy is independent at baseline and drives. She uses a walker PRN. CURRENT FUNCTIONAL STATUS:: Sandy was sitting up in bed when CM met with her. She is alert, oriented and easy to engage in conversation. Sandy is looking forward to being discharged and shares that she is feeling much better. ADVANCE DIRECTIVES:: On file, [facility] is Azeem Hernández. Has patient been provided with info about the portal/API?: Yes Did the patient sign up for the portal?: No CODE STATUS:: Full Code INSURANCE COVERAGE / FINANCIAL ISSUES:: AARP/[employer]. Health CURRENT HOME/COMMUNITY SERVICES/EQUIPMENT:: FWW, Disability PRIMARY CARE PHYSICIAN:: Danay Mckeon POTENTIAL DISCHARGE NEEDS:: Follow up appointments. PATIENT/FAMILY EDUCATION NEEDS:: Review discharge instructions, limitations, medications and plan to follow up with community providers. ask me three. TRANSPORTATION:: Via private vehicle with family. PLAN:: Anticipate Sandy will discharge home with no new [facility] services when medically ready. She will follow discharge plan of care as prescribed, including following up with her PCP and Dr. Benavides as directed.
--- NOTE | 2021-09-22 10:50 | W.PM.DS.N ---
Date of service: 09/22/21 Time of Service: 10:50 DS: Diagnosis Discharge Diagnosis (1) COPD (chronic obstructive pulmonary disease): Status: Chronic (2) Cavitary lesion of lung: Status: Chronic (3) Bronchiectasis: (4) Tobacco use: Status: Chronic (5) Chest pain: Status: Acute Discharge Plan Disposition Patient Disposition: HOME Condition: Stable Discharge Details Reason For Visit: Left Upper Lobe Pneumonia,Emphysema Admit Date/Time: 09/21/21 22:28 Admit Provider: Azeem Madera Attending Provider: Azeem Madera [facility] Hospital Course: This is a 66 yo female with a medical history of COPD, bronchiectesis, tobacco dependence. She had undergone bronchoscopy with Dr Benavides earlier in the day of admission with BAL and suctioning of copious amounts of purulent secretions. She went home and then developed rather sudden onset of left-sided chest pain. Her temp was 101.7, HR in the 110's. O2 saturation of 88% RA; placed on 3L with sat. improving to 94%. Dr Benavides consulted. Thought this was likely pneumonitis from the procedure. CT chest showed emphysema. No consolidations/infiltrates. WBC count 15.2. Zosyn initiated. The following AM she felt better and Dr Benavides agreed that she could be discharged. No pneumonia. Finding on CT that could be construed as infiltrate felt to be the result of the BAL. Follow up with Dr Benavides per her recommendations. Follow up with PCP in 1-2 weeks. Home Meds and New Rx's Prescriptions: Continued Stiolto Respimat 2.5-2.5 mcg/actuation mist 2 puff inhalation DAILY Qty: 4 8RF oxybutynin chloride 5 MG tablet 10 mg PO DAILY Rx Instructions: 2 TABS DAILY.HE (FROM RECORDS) [id number] oil-vit D3 1 EACH capsule 1 ea PO DAILY guaifenesin [Mucinex] 600 mg tablet extended release 12hr 1,200 mg PO BID Qty: 60 7RF Glucosamine Sulf-Chondroitin 1 EACH capsule 1 ea PO DAILY albuterol sulfate [Ventolin HFA] 200 PUFF HFA aerosol inhaler 2 puff Inhalation .Q4-6H PRN PRN zaleplon 10 mg capsule 10 mg PO HS Label Comments: TAKE 1 CAPSULE BY MOUTH AT BEDTIME NEEDED cetirizine 10 mg tablet 10 mg PO DAILY omeprazole 20 mg capsule,delayed release(DR/EC) 20 mg PO DAILY mirtazapine 7.5 mg tablet 7.5 mg PO DAILY elderberry fruit 200 mg Capsule 200 mg PO DAILY Discontinued fluticasone propion-salmeterol [Advair Diskus] 500-50 mcg/dose blister with device 1 inh inhalation BID Spiriva with HandiHaler 18 MCG capsule, w/inhalation device 1 puff Inhalation DAILY No Action amoxicillin-pot clavulanate [Augmentin] 500-125 mg tablet 1 tab PO BID Qty: 14 0RF Discharge Instructions Instructions: Viral Pneumonia (DC) Stand Alone Forms: Nursing Discharge Form Referrals: Danay Mckeon [Primary Care Provider] - 10/08/21 1:45 pm Activity:: Activity as Tolerated Equipment/Supplies:: No Equipment Needed Diet:: Resume usual diet Discharge Orders Discharge Orders: Discharge Order (Routine); Ordered 09/22/21 Ordered By: Salvador Barragan Discharge Data Discharge Date/Time-TO BE ENTERED AT DEPARTURE: 09/22/21 12:09 DS: Summary Time Spent with Patient providing and/or coordinating discharge services: Greater than 30 minutes Status at Discharge Functional status at discharge: independent ambulation Overall status at discharge: patient is progressing back to baseline Mental Status: mental status grossly normal Speech and Movement: speech and movement normal Mood: congruent mood Affect: normal affect Exam Psych Mental Status: mental status grossly normal Speech and Movement: speech and movement normal Mood: congruent mood Affect: normal affect DS: Data Vitals/I&O Vitals and I&O: Vital Signs Temperature 36.8 C 09/22/21 07:29 Temperature Source Tympanic 09/22/21 07:29 Pulse 88 09/22/21 07:29 Pulse Rhythm Regular 09/22/21 10:29 Pulse 90 09/21/21 22:31 Respiratory Rate 18 09/22/21 07:29 Respiratory Effort Labored 09/22/21 10:29 Respiratory Depth Deep 09/22/21 10:29 Respiratory Pattern Irregular 09/22/21 10:29 Blood Pressure 82/42 L 09/22/21 07:29 Blood Pressure Mean 74 09/21/21 22:30 Blood Pressure Position Sitting 09/21/21 18:23 Pulse Oximetry 99 09/22/21 07:29 Oxygen Delivery Method Nasal Cannula 09/22/21 07:29 Oxygen Flow Rate 2 09/22/21 07:29 End Tidal Co2 90 09/21/21 18:23 Pain Level 0 09/22/21 07:29 Intake & Output 09/21/21 09/21/21 09/22/21 11:59 23:59 11:59 Intake Total 1300 / 1300 510 / 510 Output Total 650 / 650 Balance 1300 / 1300 -140 / -140 Weight 40.9 kg 40.93 kg Intake: IV 1300 / 1300 60 / 60 Oral 450 / 450 Output: Urine 650 / 650 Other: Urine Color Light Karina Urine Appearance Clear Urine Odor Normal Voiding Methods Toilet Data Completed and Pending Labs on day of discharge: Labs from last 24 hours 09/22/21 09/22/21 09/22/21 Unknown 06:00 06:00 WBC 15.84 H RBC 3.56 L Hgb 11.2 D Hct 34.6 L MCV 97 H MCH 31.5 MCHC 32.4 RDW 13.2 Plt Count 126 L MPV 11.0 Immature Gran % 0.3 Neutrophils % 83.7 Lymphocytes % 9.2 Monocytes % 6.4 Eosinophils % 0.1 Basophils % 0.3 Nucleated RBC % 0.0 Absolute Neutrophils 13.26 H Absolute Lymphocytes 1.46 Absolute Monocytes 1.01 H Absolute Eosinophils 0.02 Absolute Basophils 0.05 D-Dimer VBG Lactate Sodium 140 Potassium 4.3 Chloride 108 H Carbon Dioxide 26.9 Anion Gap 5.1 BUN 18 Creatinine 0.7 Estimated GFR/1.73 m2 >= 60.00 Glucose 114 H Calcium 8.7 Magnesium 1.7 L Total Bilirubin 0.5 AST 33 ALT 32 Alkaline Phosphatase 64 Troponin I Total Protein 6.1 L Albumin 2.5 L TSH Urine Color Urine Clarity Urine pH Ur Specific [place] Urine Protein Urine Ketones Urine Blood Urine Nitrite Urine Bilirubin Urine Urobilinogen Ur Leukocyte Esterase Urine Glucose COVID-19 Source SARS-CoV-2 (PCR) B-(1,3)-D-Glucan Quant Pending B-(1,3)-D-Glucan Qual Pending 09/21/21 09/21/21 09/21/21 22:28 22:28 20:45 WBC RBC Hgb Hct MCV MCH MCHC RDW Plt Count MPV Immature Gran % Neutrophils % Lymphocytes % Monocytes % Eosinophils % Basophils % Nucleated RBC % Absolute Neutrophils Absolute Lymphocytes Absolute Monocytes Absolute Eosinophils Absolute Basophils D-Dimer VBG Lactate Sodium Potassium Chloride Carbon Dioxide Anion Gap BUN Creatinine Estimated GFR/1.73 m2 Glucose Calcium Magnesium Total Bilirubin AST ALT Alkaline Phosphatase Troponin I < 50 Total Protein Albumin TSH 0.44 Urine Color Yellow Urine Clarity Clear Urine pH 6.0 Ur Specific [place] 1.025 Urine Protein Negative Urine Ketones Negative Urine Blood Negative Urine Nitrite Negative Urine Bilirubin Negative Urine Urobilinogen 0.2 Ur Leukocyte Esterase Negative Urine Glucose Negative COVID-19 Source SARS-CoV-2 (PCR) B-(1,3)-D-Glucan Quant B-(1,3)-D-Glucan Qual 09/21/21 09/21/21 09/21/21 19:20 18:57 18:41 WBC RBC Hgb Hct MCV MCH MCHC RDW Plt Count MPV Immature Gran % Neutrophils % Lymphocytes % Monocytes % Eosinophils % Basophils % Nucleated RBC % Absolute Neutrophils Absolute Lymphocytes Absolute Monocytes Absolute Eosinophils Absolute Basophils D-Dimer 2034 H VBG Lactate 1.6 H Sodium Potassium Chloride Carbon Dioxide Anion Gap BUN Creatinine Estimated GFR/1.73 m2 Glucose Calcium Magnesium Total Bilirubin AST ALT Alkaline Phosphatase Troponin I Total Protein Albumin TSH Urine Color Urine Clarity Urine pH Ur Specific [place] Urine Protein Urine Ketones Urine Blood Urine Nitrite Urine Bilirubin Urine Urobilinogen Ur Leukocyte Esterase Urine Glucose COVID-19 Source Nasal/Nares SARS-CoV-2 (PCR) Negative B-(1,3)-D-Glucan Quant B-(1,3)-D-Glucan Qual 09/21/21 09/21/21 18:40 18:40 WBC 15.24 H RBC 4.35 Hgb 14.0 Hct 41.5 MCV 95 MCH 32.2 MCHC 33.7 RDW 13.1 Plt Count 197 MPV 11.0 Immature Gran % 0.4 Neutrophils % 87.8 Lymphocytes % 6.0 Monocytes % 5.7 Eosinophils % 0.0 Basophils % 0.1 Nucleated RBC % 0.0 Absolute Neutrophils 13.38 H Absolute Lymphocytes 0.91 L Absolute Monocytes 0.87 H Absolute Eosinophils 0.00 Absolute Basophils 0.02 D-Dimer VBG Lactate Sodium 139 Potassium 4.6 Chloride 102 Carbon Dioxide 27.9 Anion Gap 9.1 BUN 19 H Creatinine 0.7 Estimated GFR/1.73 m2 >= 60.00 Glucose 112 H Calcium 9.7 Magnesium 1.9 Total Bilirubin 0.4 AST 34 ALT 28 Alkaline Phosphatase 83 Troponin I < 50 Total Protein 8.8 H Albumin 3.8 TSH Urine Color Urine Clarity Urine pH Ur Specific [place] Urine Protein Urine Ketones Urine Blood Urine Nitrite Urine Bilirubin Urine Urobilinogen Ur Leukocyte Esterase Urine Glucose COVID-19 Source SARS-CoV-2 (PCR) B-(1,3)-D-Glucan Quant B-(1,3)-D-Glucan Qual 09/21/21 18:57 Blood Blood Culture - Pending 09/21/21 19:20 Blood Blood Culture - Pending Preliminary micro results at discharge 09/21/21 18:57 Blood Culture - Pending Blood 09/21/21 19:20 Blood Culture - Pending Blood PFSH All Active Problems (Updated 09/22/21 @ 13:03 by Azeem Madera) Aspiration pneumonia (Acute) COPD (chronic obstructive pulmonary disease) (Chronic) Tobacco use (Chronic) Chest pain (Acute) Vomiting (Acute) Cavitary lesion of lung (Chronic) Chest pain (Acute) Fever (Acute) Medical History Bronchiectasis Central perforation of tympanic membrane, 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 HSIL (high grade squamous intraepithelial lesion) on Pap smear of cervix Hypotension Nicotine dependence, cigarettes, uncomplicated Postoperative examination Preop examination Pulmonary nodules Surgical History Femur fracture, left H/O cone biopsy of cervix 02/10/21. 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
--- NOTE | 2021-09-22 13:48 | PDOC.CMDIS ---
- If Service Date Differs Date of service: 09/22/21 Time of Service: 13:48 LACE Index Scoring Tool - Questions: Length of Stay (in days): 1 Acuity (Admit via E.D.?): Yes Comorbidities: Chronic Pulmonary Disease E.D. Visits: 4 - Answers: Total Score: 10 Risk of Readmission: High Risk Care Management Discharge Reason for Hospitalization: Left Upper Lobe Pneuomomia. Discharge Plan: Discharge home via private vehicle with family with no new [facility] services. Sandy will follow up with her PCP 10/08/[address] Benavides's office will call patient directly to schedule a follow up appointment in 1-2 weeks. Patient/Family Education Needs: Review discharge instructions, limitations, medications and plan to follow up with community providers. ask me three.
== END 2021-09-22 12:09 | disposition home or self-care (01) | DRG 205 ==
LOC: ER 23:49 → MS 09-22 10:01
PROVIDERS: Physician Assistant; Admitting Provider Family Medicine; Emergency Provider Emergency Medicine; PCP Nurse Practitioner Family; Visit Provider Family Medicine
DX: J69.8 Pneumonitis due to inhalation of other solids and liquids; J98.4 Other disorders of lung; J95.89 Other postprocedural complications and disorders of respiratory system, not elsewhere classified; J47.9 Bronchiectasis, uncomplicated; J43.2 Centrilobular emphysema; R91.8 Other nonspecific abnormal finding of lung field; J91.8 Pleural effusion in other conditions classified elsewhere; F17.210 Nicotine dependence, cigarettes, uncomplicated; R07.89 Other chest pain; Z86.16 Personal history of COVID-19; R09.02 Hypoxemia; Y83.8 Other surgical procedures as the cause of abnormal reaction of the patient, or of later complication, without mention of misadventure at the time of the procedure
CPT/HCPCS: 36410; 36415; 71275; 80053; 87040; 87635; 93005; 94640; 96361; 96365; 96372; 96375; 99285; 71045; 81003; 83605; 83735; 84443; 84484; 85025; 85379; 93010; 99217; 99220; 99223; 99239; G0378; J1644; J1885; J2543; J3490; J7620

== ENCOUNTER 2021-10-20 02:41 | Outpatient (CLI) | payer MEDICARE, SELFPAY ==
[2021-10-20 11:56] LABS: Source Nasal/Nares
[2021-10-20 18:36] LABS: COVID-19 PCR Negative (Negative)
== END 2021-10-20 02:42 | disposition home or self-care (01) ==
LOC: LBO 02:42
PROVIDERS: Surgery; PCP Nurse Practitioner Family; Visit Provider Surgery
DX: Z01.818 Encounter for other preprocedural examination (principal); Z20.822 Contact with and (suspected) exposure to COVID-19
CPT/HCPCS: 87635

== ENCOUNTER 2021-10-22 10:01 | Day surgery (SDC) | payer MEDICARE, SELFPAY ==
--- NOTE | 2021-10-21 22:19 | HPE_ITS ---
Date of service: 10/22/21 Time of Service: 11:43 Assessment and Plan Assessment and plan (1) Mycobacterial infection, atypical: Status: Acute (2) Aspiration pneumonia: Status: Acute (3) COPD (chronic obstructive pulmonary disease): Status: Chronic Qualifiers: COPD type: emphysema Emphysema type: centrilobular Qualified Code(s): J43.2 - Centrilobular emphysema (4) Tobacco use: Status: Chronic (5) Chest pain: Status: Acute (6) Vomiting: Status: Acute Assessment and plan: Informed consent is obtained for the procedural (explained in simple layman's terms that the pt. and/or family could understand) explaining risks vs benefits and alternatives to the procedure and consequences if we do not do the procedure and need/rational for the procedure. Risks include but are not limited to: bleeding, infection, perforation of esophagus, stomach, colon, small intestines, bronchus or trachea, or PTX. This would necessitate emergency surgery to repair the damage w/ possible ostomy; and other associated complications w/ the required surgery. Also complications of anesthesia including aspiration, [place]/CVA/. -plan on doing w/ a general. still smokes COPD (7) Cavitary lesion of lung: Status: Chronic (8) Bronchiectasis: Qualifiers: Bronchiectasis type: uncomplicated Qualified Code(s): J47.9 - Bronchiectasis, uncomplicated (9) Pulmonary nodules: History of Present Illness Narrative: Clinic Exam 09/10/21: (1) Nausea and vomiting: Patient has chronic nausea, vomiting and epigastric pain. Unable to recreate this discomfort on exam. ?Discussed increasing omeprazole to twice a day for this may be related to her GERD. In evaluation of patient's weight patient's BMI has been fluctuating between 15.7 and 15 since November 2020.? No evidence of weight loss. -Discussed Upper endoscopy procedure and the need to be NPO after midnight the night prior. Discussed possible complications of the procedure to include bleeding, pain, perforation, missed small lesion/polyp/ulcers, sore throat, aspiration and adverse reaction to the medications or sedation. Questions were answered to patient?s satisfaction. No guarantees were implied or given.? 66 y/o female with COPD and pulmonary nodules presents for further evaluation of chronic nausea and vomiting.? Patient reports that she has been having symptoms of nausea and epigastric pain on and off for the past year.? She has been taking omeprazole once a day and Tums as needed.? She states she has not noted anything that makes her symptoms worse.? She has been drinking 2 ensures a day to increase her protein and calorie intake.? Patient states she has lost weight however is unsure of how much.? She denies any fevers, chills or night sweats. Patient has never had a colonoscopy and refuses to consider having one.? She states that she does a fecal test once a year for screening. CT 09/01 IMPRESSION: 1. Nodular infiltrates in both lungs which are stable from the prior CT scan of 12/09/2020.? However, 2 of the nodules in the left upper lobe now exhibits some cavitation.? In addition, there are a few new small sub cm nodular densities in both lungs. 2. There are no pleural effusions nor intrathoracic adenopathy.? No pericardial effusion. 3. Gallbladder surgically absent.? The biliary tree is not dilated. 4.? Bilateral nonobstructive nephrolithiasis.? There are 4 x 3 millimeter calculi in the lower pole of both kidneys.? There are no calculi in the nondilated ureters nor within the urinary bladder. 5.? No bowel obstruction.? No ascites.? No free air.? Appendix cannot be identified. Left hip hardware.? CT from 10/01 nad PET 01/31 reviewed as well as recent labs/cultures and results of recent bronchoscopy. pt is here today for EGD her s/s have been Informed consent is obtained for the procedural (explained in simple layman's terms that the pt. and/or family could understand) explaining risks vs benefits and alternatives to the procedure and consequences if we do not do the procedure and need/rational for the procedure. Risks include but are not limited to: bleeding, infection, perforation of esophagus, stomach, colon, small intestines, bronchus or trachea, or PTX. This would necessitate emergency surgery to repair the damage w/ possible ostomy; and other associated complications w/ the required surgery. Also complications of anesthesia including aspiration, [place]/CVA/. PT states she has to force herself to eat. She denies pain or difficulty swallowing. She wants to eat. She is very nasuated adn doesn't feel like eating. She doesnot vomting. Her bowels work ok. She moved them 1-2x/ day. No bleeding. Sometimes hard to nomral. She takes prilosec daily. She has been on it a couple months. Doesn't help. She has not taken any other medications. She uses baking soda for H/I. This happens maybe every 2-3months. +1ppd. KNDA. She is still waiting to here from [facility] [place] [place] about treatment of her MAC infection . She is not currently GETA b/c of previous aspiration. NO [place]/CVA not on home O2. + smoker. no CPAP DM- no seizures +COPD -pt not had CE and resufes. Had CT AB/pelvis that was negative. Hemoccult was neg. 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 HSIL (high grade squamous intraepithelial lesion) on Pap smear of cervix Hypotension Nicotine dependence, cigarettes, uncomplicated Postoperative examination Preop examination Pulmonary nodules Surgical History Femur fracture, left H/O cone biopsy of cervix 02/10/21. 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, H/O varicose vein ligation H/O vein stripping History of back surgery Hx of appendectomy Hx of cholecystectomy S/P LEEP Family History Self Unknown family medical history Social History Smoking/Tobacco Use Status: Current every day Tobacco Type: cigarettes Smoking risk assessment performed?: Yes Alcohol Intake: never Drug use: Occasionally Substance use type: marijuana Details: marijuana: pt. reports it has been months and no longer uses Do you feel safe at home: Yes Do you feel safe in your relationship?: Yes Meds Allergies and Home Medications Allergies Allergy/AdvReac Type Severity Reaction Status Date / Time No Known Allergies Allergy Unverified 10/22/21 10:40 Home Medications Medication Instructions Recorded Confirmed Type glucosamine sulfate dipotassium Cl 1 ea PO DAILY 11/20/12 10/22/21 History 500 mg-chondroitin 400 mg capsule (Glucosamine Sulfate 2 KCL-Chondroitin) oxybutynin chloride 5 mg tablet 10 mg PO DAILY 02/13/14 10/22/21 History hf-5-qro-epa-fish oil-vit D3 900 1 ea PO DAILY 05/12/14 10/22/21 History mg-1,000 unit capsule albuterol sulfate 90 mcg/actuation 2 puff inhalation .Q4-6H PRN PRN 01/26/17 10/22/21 History aerosol inhaler (Ventolin HFA) cetirizine 10 mg tablet 10 mg PO DAILY 11/11/20 10/22/21 History mirtazapine 7.5 mg tablet 7.5 mg PO DAILY 11/11/20 10/22/21 History omeprazole 20 mg capsule,delayed 40 mg PO DAILY 11/11/20 10/22/21 History release zaleplon 10 mg capsule 10 mg PO HS 11/11/20 10/22/21 History guaifenesin 600 mg tablet, 1,200 mg PO BID #60 tabs 06/08/21 10/22/21 Rx extended release 12 hr (Mucinex) elderberry fruit 200 mg capsule 200 mg PO DAILY 08/19/21 10/22/21 History tiotropium 2.5 mcg-olodaterol 2.5 2 puff inhalation DAILY #4 grams 09/15/21 10/22/21 Rx mcg/actuation mist for inhalation (Stiolto Respimat) aspirin-caffeine 500 mg-32.5 mg 2 tab PO 10/22/21 History tablet (Martínez Back and Body) Exam Narrative Exam Narrative: PHYSICAL EXAM GENERAL APPEARANCE: Alert, Pt is cechetic w/ muscle wasting. SKIN: No rashes.? No breakdown HYDRATION: Well hydrated HEAD, EYES, EARS, NECK, THROAT: Head is normocephalic, pupils equal, round, reactive to light and accommodation, ocular movement intact. pt had mask on throught out the procedure. NECK: Supple, Trachea midline. No JVD. LUNGS: normal respiration/nl chest excursion. ?Clear to auscultation B/l no R/R/W ?HEART: Regular rate and rhythm, EXTREMITY: No edema or cyanosis? no leg pain, redness, swelling.? No IV infiltration severe muscle wasting/atrophy. also walks w/ a limp. ABDOMEN: non tender to palpation, no masses or distention, no hernias. Normal bowel sounds
[2021-10-22 10:50] VITALS: BP 97/75; PULSE 96; RESP 20; TEMP 36.3; O2SAT 94
[2021-10-22] MEDS: Lactated Ringers 1,000 ML 80 ML IV (11:05)
--- NOTE | 2021-10-22 11:32 | W.ANESPRE ---
General Info Date of Service Date Performed: 10/22/21 Height: 5 ft 4 in Weight: 39.3 kg Body Mass Index (BMI): 14.8 Surgical Procedure: Operation Date: 10/22/21 12:05 Proposed Procedure Side Surgeon p Gastroscopy Apoorva Yang, DO Meds Allergies and Home Medications Allergies Allergy/AdvReac Type Severity Reaction Status Date / Time No Known Allergies Allergy Unverified 10/22/21 10:40 Home Medication Medication Instructions Recorded glucosamine sulfate dipotassium Cl 1 ea PO DAILY 11/20/12 500 mg-chondroitin 400 mg capsule (Glucosamine Sulfate 2 KCL-Chondroitin) oxybutynin chloride 5 mg tablet 10 mg PO DAILY 02/13/14 qt-9-pvn-epa-fish oil-vit D3 900 1 ea PO DAILY 05/12/14 mg-1,000 unit capsule albuterol sulfate 90 mcg/actuation 2 puff inhalation .Q4-6H PRN PRN 01/26/17 aerosol inhaler (Ventolin HFA) cetirizine 10 mg tablet 10 mg PO DAILY 11/11/20 mirtazapine 7.5 mg tablet 7.5 mg PO DAILY 11/11/20 omeprazole 20 mg capsule,delayed 40 mg PO DAILY 11/11/20 release zaleplon 10 mg capsule 10 mg PO HS 11/11/20 guaifenesin 600 mg tablet, 1,200 mg PO BID #60 tabs 06/08/21 extended release 12 hr (Mucinex) elderberry fruit 200 mg capsule 200 mg PO DAILY 08/19/21 tiotropium 2.5 mcg-olodaterol 2.5 2 puff inhalation DAILY #4 grams 09/15/21 mcg/actuation mist for inhalation (Stiolto Respimat) aspirin-caffeine 500 mg-32.5 mg 2 tab PO 10/22/21 tablet (Martínez Back and Body) Current Visit Medications: Current Medications Generic Name Dose Route Start Last Admin Trade Name Freq PRN Reason Stop Dose Admin Hyoscyamine Sulfate 0.125 mg 10/21/21 22:23 Hyoscyamine 0.125 Mg Sl/Oral/Chew SL DIRECTED PRN Ringer's Solution 1,000 mls @ 80 mls/hr 10/22/21 06:00 10/22/21 11:05 IV 11/20/21 23:59 80 mls/hr INFUSION ROGELIO Administration IV Miscellaneous Supplies 1 each 10/22/21 06:00 Iv Access IV 11/20/21 23:59 DIRECTED ROGELIO Ondansetron HCl 4 mg 10/21/21 22:23 Ondansetron 4 Mg/2 Ml Vial IVP Q4H PRN PRN Nausea / Vomiting Sodium Chloride 0 ml 10/22/21 06:00 Normal Saline Flush 10 Ml Syr IV 11/20/21 23:59 PRN PRN Sodium Chloride 0 ml 10/22/21 06:00 Normal Saline 10 Ml Vial IJ 11/20/21 23:59 DIRECTED PRN Sterile Water 0 ml 10/22/21 06:00 Water,Injection,Sterile 10 Ml Vial IJ 11/20/21 23:59 DIRECTED PRN PFSH Active Problems Active Problems: Problem Status Onset Code Mycobacterial infection, atypical A31.9 Aspiration pneumonia J69.0 COPD (chronic obstructive pulmonary disease) J44.9 Tobacco use Z72.0 Chest pain R07.9 Vomiting R11.10 Cavitary lesion of lung J98.4 Medical History Medical History Bronchiectasis Central perforation of tympanic membrane, 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 HSIL (high grade squamous intraepithelial lesion) on Pap smear of cervix Hypotension Nicotine dependence, cigarettes, uncomplicated Postoperative examination Preop examination Pulmonary nodules Medical History Comments:: pulse ox on nare, hands and ears cool. Surgical History Surgical History Femur fracture, left H/O cone biopsy of cervix 02/10/21. 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, H/O varicose vein ligation H/O vein stripping History of back surgery Hx of appendectomy Hx of cholecystectomy S/P LEEP Tobacco Smoking/Tobacco Use Status: Current every day Tobacco Type: cigarettes Alcohol Alcohol Intake: never Substance Use Substance use: Occasionally Substance use type: marijuana Details: marijuana: pt. reports it has been months and no longer uses Vital Signs and Lab Results Vital Signs Most Recent Vital Signs in EMR: Most Recent Vital Signs Temp Pulse Resp BP Pulse Ox 36.3 C L 96 H 20 97/75 L 94 10/22/21 10:50 10/22/21 10:50 10/22/21 10:50 10/22/21 10:50 10/22/21 10:50 Lab Results Blood Type / Crossmatch: No Data to Display Complete Blood Count: No Data to Display Complete Metabolic Panel: No Data to Display Liver Function Panel: No Data to Display Coagulation Panel: No Data to Display Cardiac Panel: No Data to Display Arterial Blood Gas: No Data to Display Venous Blood Gas: No Data to Display Pancreas Panel: No Data to Display Thyroid Panel: No Data to Display Infectious Disease: Coronavirus (COVID-19)(PCR) Negative (Negative) 10/20/21 08:40 Coronavirus 2019 Source Nasal/Nares 10/20/21 08:40 Blood Cultures: No Data to Display Toxicology Panel: No Data to Display Imaging and Studies Imaging and Studies Study information below may be from another EMR and interpreted by another provider. Please see original notes in EMR for more complete details. EKG Summary: Conclusion Sinus rhythm...normal P axis, V-rate 60- 99 Consider anteroseptal infarct...Q >30mS, dimin R, V1-V2. Sinus. Normal axis. No STEMI. I have reviewed and interpreted ECG and agree with software generated interpretation. Anesthesia Assessment and Plan Anesthesia History Personal History: No History of Anesthesia Complications Family History: No Family History of Anesthesia Complications Exercise Tolerance Exercise Tolerance: Metabolic Equivalents<4 Pertinent Negatives Pertinent Negatives: No Symptoms of GERD, No Major Cardiovascular Symptoms or Complaints, No Major Pulmonary Symptoms or Complaints (Ongoing respiratory infection ) and No History of CVA/TIA Cardiac & Pulmonary Exam Cardiac Exam: Normal S1/S2 Heart Sounds Pulmonary Exam: Clear Bilateral Breath Sounds Implantable Cardiac Device Does patient have a Pacemaker or an ICD?: No Airway Exam Known Difficult Airway: No Mallampati Class: 1 Mouth Opening: Normal (> 3cm) Thyromental Distance: Greater than 3 cm Neck Range of Motion: Full ROM Neck Circumference: Normal Teeth Condition: Removable Dentures/Plates Upper and Removable Dentures/Plates Lower ASA Classification ASA Score: ASA 3 Emergency Case?: No NPO Status NPO Status: NPO Clears >2 hours, Solids >8 hours Anesthesia Plan Resuscitation Status: Full Code Anesthesia Technique: General Anesthesia Airway Planned: Endotracheal Tube Monitors Used: Standard Monitors
[2021-10-22 11:35] VITALS: BMI 14.8
--- NOTE | 2021-10-22 12:09 | ENDO_ITS ---
Date of service: 10/22/21 Time of Service: 12:09 Endoscopy Report DATE OF PROCEDURE: 10/22/21 PRE-OP DIAGNOSIS: spontaineous vomting/wt loss POST-OP DIAGNOSIS: other (Mild duodenitis/moderate gastritis/moderate esophagitis/hiatal hernia) SURGEON: Apoorva Yang ANESTHESIA TYPE: General:No Airway ESTIMATED BLOOD LOSS: 2 PATHOLOGY: other COMPLICATIONS: None DISPOSITION: PACU PROCEDURE DESCRIPTION: After informed consent was obtained the patient was take to the procedure room and placed in a supine position. Monitors were applied and a time out was done. The patients name, date of , procedure type, allergies to medications and metal in their body was reviewed. General anesthesia is administered per the department of anesthesia. A bite block was placed. Once sedated and comfortable the gastroscope was normal advanced through the oropharynx which was grossly normal into the esophagus. The proximal and mid-esophagus were . there are no esophageal varices, diverticula, stricture apparent. She does have moderate esophagitis at the GE junction. She does have a 2 cm sliding-type hiatal hernia. the scope was advanced into the stomach and through the pylorus into the 3rd portion of the duodenum. The duodenum was noted to be mild duodenitis. Biopsies were done, all specimens are retrieved and no bleeding is noted.. The scope was retracted back into the stomach and biopsies were done to rule out H. pylori. He does have moderate to severe gastritis radiating from the antrum in a striped fashion. Along the greater curvature in the dependent portions of the stomach she does have a severe gastritis. There are no erosions or active bleeding. The cardia region looks normal. There were no ulcers. The scope was retroflexed. The cardia and fundus were noted to be normal. There 2 cm sliding-type hiatal hernia a hiatal hernia noted. The scope was retracted back into the esophagus and biopsies were done of the GE junction to rule out Esteban's. The Z line was irregular. The GE junction was at 45 cm in the distal esophagus at 43cm. The scope was removed and the patient was woken up and taken back to [facility] in stable condition. Follow up: 1 months time.
--- NOTE | 2021-10-22 12:10 | PDOC.DSDIS_ITS ---
Discharge Plan Disposition Patient Disposition: HOME Condition: Good Discharge Details Reason For Visit: stomach scope/EGD Attending Provider: Apoorva Yang Primary Care Provider: Danay Mckeon Home Meds and New Rx's Prescriptions: New pantoprazole [Protonix] 40 mg tablet,delayed release (DR/EC) 40 mg PO DAILY Qty: 30 12RF sucralfate [Carafate] 100 mg/mL suspension 5 ml PO .ac/hs 360 Days Qty: 600 12RF Rx Instructions: take 30mins prior to meals and hs metoclopramide HCl [Reglan] 5 mg tablet 5 mg PO QACHS Qty: 120 12RF Continued Stiolto Respimat 2.5-2.5 mcg/actuation mist 2 puff inhalation DAILY Qty: 4 8RF oxybutynin chloride 5 MG tablet 10 mg PO DAILY Rx Instructions: 2 TABS DAILY.HE (FROM RECORDS) lc-9-iwu-epa-fish oil-vit D3 1 EACH capsule 1 ea PO DAILY guaifenesin [Mucinex] 600 mg tablet extended release 12hr 1,200 mg PO BID Qty: 60 7RF Glucosamine Sulf-Chondroitin 1 EACH capsule 1 ea PO DAILY albuterol sulfate [Ventolin HFA] 200 PUFF HFA aerosol inhaler 2 puff Inhalation .Q4-6H PRN PRN zaleplon 10 mg capsule 10 mg PO HS Label Comments: TAKE 1 CAPSULE BY MOUTH AT BEDTIME NEEDED cetirizine 10 mg tablet 10 mg PO DAILY mirtazapine 7.5 mg tablet 7.5 mg PO DAILY elderberry fruit 200 mg Capsule 200 mg PO DAILY Discontinued omeprazole 20 mg capsule,delayed release(DR/EC) 40 mg PO DAILY Martínez Back and Body 500-32.5 mg Tablet 2 tab PO Discharge Instructions Additional Instructions: Post EGD Instruction ?You had anesthesia for your EGD/stomach scope today.? For your safety, please do the following for the next twenty-four (24) hours: Do Not operate a motor vehicle (car, truck, motorcycle, etc.) Do Not drink alcoholic beverages or use any recreational drugs for the first 24 hours or while taking pain medications. The medications in your body may have a reaction that can be dangerous. Do Not make any important decisions or sign any important papers You have just had a gastroscopy (EGD) or upper GI tract examination. It is important for your smooth recovery that you carefully follow the recommendations below. Do not hesitate to call if any questions should arise about your anesthesia, condition, or care. -Symptoms you may experience during the next 24 hours: ?1. Mild abdominal pain or excessive gas or a bloated feeling which improves with rest, liquids, eating? slightly, and walking as tolerated. 2. Drowsiness and/or forgetfulness because of the medications you were given. ?3. Throat numbness for about 1 hour. 4. A sore throat which you can treat with throat lozenges or by gargling with salt water 4-5 times a day. 5. Redness at the site of your IV which you can treat with warm compresses. SPECIAL INSTRUCTIONS: 1. You may resume your previous diet in one hour. We recommend a light meal to start, then progress as tolerated. 2. Restart regular medications in one hour. 3. No aspirin or non-steroidal containing medication for three days. 4. No lifting over 20 pounds or strenuous activity for the first 24 hours after your procedure. After 24 hours there are no restrictions on your activity, but you may feel fatigued for a few days. Findings: Duodenitis Gastritis Esophagitis Hiatal hernia Treatment: see handout for finding -Medications: protonix/carafate/reglan Stop smoking -Stop using products with aspirin and ibuprofen. Tylenol is OK. Do NOT use Martínez back and body. -Continue to follow lifestyle modifications: No alcohol, tobacco products, Aspirin or NSAID's (ibuprofen, Motrin, Naprosyn, aleve, etc).? Try to limit/avoid:? soda pop/any carbonated beverages, caffeine (including tea & chocolate), and acidic foods, (tomatoes, citrus, onions, peppermints) spicy or fried/fatty foods. Do not lie down for 30 minutes after eating, and do not eat 2 hours prior to bedtime. Avoid wearing tight fitting c lothing/ belts. Follow up: Surgery office in 3-4 weeks time. Call the office at [phone] (Office) or [phone] (Hospital), or go to the ER right away if you notice any of the followin. Vomiting blood and /or ?coffee ground? material. ?2. Worsening of abdominal pain or cramping. ?3. Trouble with breathing, cough, and/or fever (temperature above 101.5 F). 4. Increasing pain with swallowing. ?5. Chest pain. 6. Any new symptoms. 7. Worsening of the redness at the IV site Activity:: see above Diet:: see above Discharge Orders Discharge Orders: Discharge Order (Routine); Ordered 10/21/21 Ordered By: Apoorva Yang DS: Diagnosis Discharge Diagnosis (1) Mycobacterial infection, atypical: Status: Acute (2) Aspiration pneumonia: Status: Acute (3) COPD (chronic obstructive pulmonary disease): Status: Chronic (4) Tobacco use: Status: Chronic (5) Chest pain: Status: Acute (6) Vomiting: Status: Acute (7) Cavitary lesion of lung: Status: Chronic (8) Bronchiectasis: (9) Pulmonary nodules:
[2021-10-22] MEDS: Metoclopramide 10 MG/2 ML VIAL 5 MG IVP (12:18)
[2021-10-22 12:52] VITALS: BP 95/64; PULSE 86; RESP 19; TEMP 36.3; O2SAT 99
[2021-10-22 12:57] VITALS: BP 129/65; PULSE 85; RESP 18; TEMP 36.3; O2SAT 98
--- NOTE | 2021-10-22 12:58 | STOM_PTH ---
PATIENT: Sandy Hernández LOC: [facility] U#:[id number] AGE/SX: 66/F ROOM: RE10/22/[address]: Apoorva Yang : 1955 BED: DIS: 10/22/2021 SPEC #: [id number] RECD: 10/22/21 16:54 STATUS: ENA RE #: [id number] IKER: 10/22/21 12:[address]: Apoorva Yang DEPT: Surgical Specimen RECD BY: Chiquis Veras ENTERED: 10/22/21 16:55 SP TYPE: STOMACH OTHR DR: Danay Mckeon Tissues: 1 - BIOPSY BOWEL 2 - STOMACH BIOPSY 3 - STOMACH BIOPSY 4 - ESOPHAGUS BIOPSY 5 - ESOPHAGUS BIOPSY Procedures: GROSS AND MICRO LEVEL 4 Comments: [id number]
[2021-10-22 13:02] VITALS: BP 110/63; PULSE 82; RESP 18; TEMP 36.3; O2SAT 97
[2021-10-22 13:15] VITALS: BP 119/80; PULSE 79; RESP 20; TEMP 36.3; O2SAT 95
[2021-10-22 13:42] VITALS: BP 108/84; PULSE 86; RESP 20; TEMP 36.5; O2SAT 93
[2021-10-22] MEDS: Pantoprazole 40 MG VIAL IVP (13:42)
--- NOTE | 2021-10-22 14:53 | W.ANESPOSTOP ---
Postoperative Evaluation Date, Time and Location Date Performed: 10/22/21 Time Performed: 14:53 Patient Location: Day Surgery Unit Vital Signs Most Recent Imported Vital Signs: Most Recent Vital Signs Temp Pulse Resp BP Pulse Ox 36.5 C 86 20 108/84 93 10/22/21 13:42 10/22/21 13:42 10/22/21 13:42 10/22/21 13:42 10/22/21 13:42 Pain Score Most Recent Pain Score: Most Recent Pain Score Pain Level 0 10/22/21 13:42 Assessment Mental Status: Awake (Alert & Oriented to Patient Baseline) Airway and Respiratory Function: Patent airway with normal (patient baseline) respiratory exam Cardiovascular Function: Hemodynamically Stable Hydration Status: Adequately Hydrated Nausea & Vomiting: No Nausea or Vomiting Pain: Pt. Denies Any Pain Peripheral Nerve Block: Patient did not receive a nerve block
== END 2021-10-22 14:14 | disposition home or self-care (01) ==
PROVIDERS: PCP Nurse Practitioner Family; Visit Provider Surgery
PROC: 0DJ68ZZ Inspection of Stomach, Via Natural or Artificial Opening Endoscopic (ICD-10-PCS; CPT 43235; principal; 2021-10-22 12:00)
DX: R11.2 Nausea with vomiting, unspecified (principal); R10.13 Epigastric pain; K29.70 Gastritis, unspecified, without bleeding; K29.80 Duodenitis without bleeding; K44.9 Diaphragmatic hernia without obstruction or gangrene; K22.89 Other specified disease of esophagus; K31.89 Other diseases of stomach and duodenum
CPT/HCPCS: 43239; 88305; J2765

== ENCOUNTER → 2021-11-11 10:41 | Outpatient (BNVA) | payer MEDICARE, SELFPAY | PROVIDERS: PCP Nurse Practitioner Family; Referring Provider Nurse Practitioner Family; Visit Provider Surgery | DX: K31.89 Other diseases of stomach and duodenum (principal) | CPT/HCPCS: 99212 ==

== ENCOUNTER 2022-01-07 08:19 | Outpatient (CLI) | payer MEDICARE, SELFPAY ==
--- NOTE | 2022-01-07 08:30 | RT.EKG_ITS ---
APPROVED REPORT Exam: Resting ECG Reason for Exam: MAC INFECTION Patient Location: O HR:91 bpm ECG Measurements Heart Rate [address] 109 P -23 QRSd 78 QRS 66 QT 375 T 60 QTc 462 Conclusion Sinus rhythm...normal P axis, V-rate 50- [address] interval...CT <110mS V1-V2 Poor R wave progression
== END 2022-01-07 08:20 | disposition home or self-care (01) ==
PROVIDERS: PCP Nurse Practitioner Family; Visit Provider Internal Medicine Infectious Disease
DX: J47.9 Bronchiectasis, uncomplicated (principal)
CPT/HCPCS: 93005; 93010

== ENCOUNTER 2022-01-14 02:47 | Outpatient (CLI) | payer MEDICARE, SELFPAY ==
[2022-01-14 13:47] LABS: Abs Immature Grans 0.03 10^3/uL (0.0-0.06); Absolute Basophil Count 0.02 10^3/uL (0.0-0.2); Absolute Eosinophil Count 0.05 10^3/uL (0.0-0.7); Absolute Lymphocyte Count 1.09 10^3/uL (1.2-3.4); Absolute Monocyte Count 0.59 10^3/uL (0.1-0.8); Absolute Neutrophil Count 4.26 10^3/uL (1.2-6.7); Basophils % 0.3; Eosinophils % 0.8; HCT 42.5 % (36.0-46.0); HGB 13.4 g/dL (11.2-15.7); Immature Grans % 0.5; MCH 30.4 pg (27.0-33.0); MCHC 31.5 % (32.0-36.0); MCV 96 fL (80-95); MPV 10.6 fL (8.0-11.0); Monocytes % 9.8; Neutrophils % 70.6; Platelet Count 160 10^3/uL (130-400); RBC 4.41 10^6/uL (3.93-5.22); RDW 14.1 % (11.7-14.6); RDW-SD 50.7 fL; WBC 6.04 10^3/uL (4.4-10.8)
[2022-01-14 14:08] LABS: ALT 28 U/L (14-59); AST 33 U/L (15-37); Albumin 3.6 g/dL (3.4-5.0); Alkaline Phosphatase 96 U/L (46-116); Anion Gap 7.5 mmol/L (3-11); BUN 17 mg/dL (7-18); Bilirubin, Total 0.9 mg/dL (0.2-1.0); CO2 30.5 mmol/L (21.0-32.0); CREATININE 0.7 mg/dL (0.55-1.02); Calcium 9.6 mg/dL (8.5-10.1); Chloride 103 mmol/L (98-107); Estimated GFR 94.15 (mL/min/1.73m2); Glucose 117 mg/dL (74-106); Potassium 4.3 mmol/L (3.5-5.1); Sodium 141 mmol/L (136-145); Total Protein 8.3 g/dL (6.4-8.2)
== END 2022-01-14 02:48 | disposition home or self-care (01) ==
LOC: LBO 02:47
PROVIDERS: PCP Nurse Practitioner Family; Visit Provider Internal Medicine
DX: Z79.899 Other long term (current) drug therapy (principal); A31.9 Mycobacterial infection, unspecified
CPT/HCPCS: 36415; 80053; 85025

== ENCOUNTER 2022-02-15 13:28 | Outpatient (REF) | payer MEDICARE, SELFPAY | END 2022-02-15 13:29 | disposition home or self-care (01) | LOC: LBN 13:28 | PROVIDERS: Internal Medicine Infectious Disease; PCP Nurse Practitioner Family; Visit Provider Internal Medicine Infectious Disease | DX: A31.0 Pulmonary mycobacterial infection (principal) | CPT/HCPCS: 87116; 87206 ==

== ENCOUNTER → 2022-02-18 08:45 | Outpatient (BNVA) | payer MEDICARE, SELFPAY | PROVIDERS: PCP Nurse Practitioner Family; Referring Provider Nurse Practitioner Family; Visit Provider Surgery | DX: A31.9 Mycobacterial infection, unspecified (principal); J43.2 Centrilobular emphysema; J98.4 Other disorders of lung; F17.210 Nicotine dependence, cigarettes, uncomplicated; R11.10 Vomiting, unspecified; K44.9 Diaphragmatic hernia without obstruction or gangrene; K21.00 Gastro-esophageal reflux disease with esophagitis, without bleeding | CPT/HCPCS: 99213 ==

== ENCOUNTER 2022-04-06 10:01 | Outpatient (REF) | payer MEDICARE, SELFPAY ==
--- NOTE | 2022-04-06 08:30 | PAPFT_PTH ---
PATIENT: Sandy Hernández LOC: [facility] U#:[id number] AGE/SX: 66/F ROOM: RE04/06/[address]: Abbi Beaulieu NP : 1955 BED: DIS: 04/06/2022 SPEC #: [id number] RECD: 04/06/22 13:03 STATUS: ENA KUHN #: [id number] IKER: 04/06/22 08:[address]: Abbi Beaulieu NP DEPT: [facility] Cytology RECD BY: Chiquis Veras ENTERED: 04/06/22 13:04 SP TYPE: PAPFT OTHR DR: Danay Mckeon Tissues: 1 - CX/ENDOCX FOR PAP SMEARS Procedures: PAP THIN PREP/[facility] Screening HPV DNA PROBE Comments: [id number]
[2022-04-06 12:39] LABS: Absolute Basophil Count 0.01 10^3/uL (0.0-0.2); Absolute Eosinophil Count 0.03 10^3/uL (0.0-0.7); Absolute Lymphocyte Count 0.98 10^3/uL (1.2-3.4); Absolute Monocyte Count 0.35 10^3/uL (0.1-0.8); Absolute Neutrophil Count 2.16 10^3/uL (1.2-6.7); Basophils % 0.3; Eosinophils % 0.8; HCT 42.8 % (36.0-46.0); HGB 13.6 g/dL (11.2-15.7); Lymphocytes % 27.8; MCH 31.4 pg (27.0-33.0); MCHC 31.8 % (32.0-36.0); MCV 99 fL (80-95); MPV 11.4 fL (8.0-11.0); Monocytes % 9.9; Neutrophils % 61.2; Platelet Count 149 10^3/uL (130-400); RBC 4.33 10^6/uL (3.93-5.22); RDW 12.9 % (11.7-14.6); RDW-SD 46.5 fL; WBC 3.53 10^3/uL (4.4-10.8)
[2022-04-06 12:54] LABS: ALT 22 U/L (14-59); AST 28 U/L (15-37); Albumin 3.6 g/dL (3.4-5.0); Alkaline Phosphatase 95 U/L (46-116); Anion Gap 6.2 mmol/L (3-11); BUN 11 mg/dL (7-18); Bilirubin, Total 0.6 mg/dL (0.2-1.0); CO2 30.8 mmol/L (21.0-32.0); CREATININE 0.7 mg/dL (0.55-1.02); Calcium 9.1 mg/dL (8.5-10.1); Chloride 104 mmol/L (98-107); Estimated GFR 94.15 (mL/min/1.73m2); Glucose 89 mg/dL (74-106); Potassium 4.2 mmol/L (3.5-5.1); Sodium 141 mmol/L (136-145); Total Protein 7.7 g/dL (6.4-8.2)
== END 2022-04-06 10:02 | disposition home or self-care (01) ==
LOC: LBN 10:01
PROVIDERS: Physician Assistant Surgical; PCP Nurse Practitioner Family; Visit Provider Nurse Practitioner Women's Health
DX: J47.9 Bronchiectasis, uncomplicated (principal); J43.2 Centrilobular emphysema; R91.8 Other nonspecific abnormal finding of lung field; F17.210 Nicotine dependence, cigarettes, uncomplicated; J98.4 Other disorders of lung; Z87.410 Personal history of cervical dysplasia; Z11.51 Encounter for screening for human papillomavirus (HPV); Z01.419 Encounter for gynecological examination (general) (routine) without abnormal findings
CPT/HCPCS: 80053; 88142; 85025; 87624

== ENCOUNTER 2022-04-11 14:31 | Outpatient (REF) | payer MEDICARE, SELFPAY | END 2022-04-11 14:32 | disposition home or self-care (01) | LOC: LBN 14:31 | PROVIDERS: PCP Nurse Practitioner Family; Visit Provider Internal Medicine Infectious Disease | DX: A31.0 Pulmonary mycobacterial infection (principal) | CPT/HCPCS: 87116; 87206 ==

== ENCOUNTER 2022-04-27 00:20 | Outpatient (CLI) | payer MEDICARE, SELFPAY ==
--- NOTE | 2022-04-27 06:45 | DI.CT_ITS ---
Exam(s) CT CHEST WO EXAM: CT CHEST WO CLINICAL HISTORY: F/U MYCOBACTERIAL INFECTION,A31.9,EMPHYSEMA,J43.2,COPD,S/P TREATMENT. TECHNIQUE: Imaging protocol: Axial computed tomography images were obtained and coronal and sagittal reformatted images were created and reviewed. CONTRAST MATERIAL: Noncontrast COMPARISON: CT CT CHEST PE CTA from 09/21/2021 FINDINGS: Pulmonary parenchyma: Previously noted area of consolidation in the anterior left upper lobe has reso lved without significant residual scarring. Stable areas of upper lobe scarring. Areas of fluid see n within bulla near the left apex have improved. Stable left upper lobe nodule. On mild atelectasis or scarring at the medial right lung base. Emphysema: Moderate centrilobular emphysema greater in the upper lobes. Tracheobronchial tree: Mild lower lobe bronchiectasis with wall thickening and mucous plugging seen g reatest at the right lung base. Slightly more prominent than prior. Focal bronchiectasis versus bul la left upper lobe. Interstitial changes: None. Pleura: No effusion or pneumothorax. Heart: The heart is not dilated. The coronary arteries show moderate calcifications. Aorta: Thoracic aorta non-dilated. Mildatherosclerotic changes. Lymph nodes: No enlarged lymph nodes. Bones: Degenerative changes are seen. No evidence of compression fracture. Upper abdomen: Stone upper pole left kidney. IMPRESSION: Interval resolution of previously noted left upper lobe infiltrate. Stable left upper lobe nodule. Emphysematous changes greatest in upper lobes. Bronchiectasis and mucous plugging lung bases right greater than left. RADIATION DOSE DELIVERED: 268.45mGy.cm Total DLP 268.45mGy.cm Total DLP DATA REPOSITORY: All CT scans at this facility are submitted to the National Radiology Data Registry (NRDR) Dose Index Registry (DIR) with the [employer] (ACR). RADIATION OPTIMIZATION: All CT scans at this facility use at least one of these dose optimization te chniques: automated exposure control; mA and/or kV adjustment per patient size (includes targeted exa ms where dose is matched to clinical indication); or iterative reconstruction.
== END 2022-04-27 00:40 ==
LOC: DI 00:28
PROVIDERS: PCP Nurse Practitioner Family; Visit Provider Physician Assistant Surgical
DX: A31.9 Mycobacterial infection, unspecified (principal); J43.2 Centrilobular emphysema; R91.8 Other nonspecific abnormal finding of lung field
CPT/HCPCS: 71250

== ENCOUNTER 2022-04-27 01:08 | Outpatient (CLI) | payer MEDICARE, SELFPAY ==
--- NOTE | 2022-04-27 08:45 | DI.MAMMO_ITS ---
Exam(s) MAMMO SCREENING EXAM: MAMMO SCREENING CLINICAL HISTORY: screening TECHNIQUE: Mammograms were interpreted according to the usual protocol including computer analysis w [facility] CAD system, tomosynthesis and C-view imaging. COMPARISON: 2013 through 2020 FINDINGS: The breasts are composed of heterogeneously dense fibroglandular densities, Breast Density category C . No suspicious masses or suspicious microcalcifications are seen. No skin thickening or abnormal axillary lymph nodes are seen. There has been no significant change from prior exams. IMPRESSION: BI-RADS Category 1, Negative mammogram. Yearly screening mammography is recommended. Breast Density Category C, heterogeneously Dense. The mammogram demonstrates the patient's breast tissue is dense. Dense breast tissue is very common a nd is not abnormal but dense breast tissue can make it harder to find cancer on a mammogram. Also, de nse breast tissue may increase breast cancer risk. This information about the result of the mammogram report was provided to the patient to raise their awareness. Use this report when you speak with the patient about their risks for breast cancer, which includes their family history. At that time, you may recommend additional screening tests (Ultrasound or MRI) as they might be useful based on their r isk. A negative radiographic report should not delay biopsy if a dominant or clinically suspicious mass is present. Up to ten percent of cancers are not identified on mammography. A negative report may reinforce clinical impression. Adenosis and dense breasts may obscure an underlying neoplasm. False positive reports average 6 to 10%.
== END 2022-04-27 01:28 ==
LOC: DI 01:09
PROVIDERS: PCP Nurse Practitioner Family; Visit Provider Nurse Practitioner Women's Health
DX: Z12.31 Encounter for screening mammogram for malignant neoplasm of breast (principal); R92.8 Other abnormal and inconclusive findings on diagnostic imaging of breast
CPT/HCPCS: 77063; 77067

== ENCOUNTER 2022-05-12 08:26 | Outpatient (CLI) | payer MEDICARE, SELFPAY ==
--- NOTE | 2022-05-12 08:15 | RT.EKG_ITS ---
APPROVED REPORT Exam: Resting ECG Reason for Exam: Therapeutic Drug Monitoring Patient Location: O HR:89 bpm ECG Measurements Heart Rate 89 AXIS AL 128 P 83 QRSd 83 QRS 46 QT 378 T 54 QTc 460 Conclusion Sinus rhythm...normal P axis, V-rate 50- 99 Probable left atrial enlargement...P >50mS, <-0.10mV V1
== END 2022-05-12 08:27 | disposition home or self-care (01) ==
PROVIDERS: PCP Nurse Practitioner Family; Visit Provider Internal Medicine Infectious Disease
DX: Z51.81 Encounter for therapeutic drug level monitoring (principal)
CPT/HCPCS: 93005; 93010

== ENCOUNTER 2022-06-03 16:16 | Outpatient (REF) | payer MEDICARE, SELFPAY | END 2022-06-03 16:17 | disposition home or self-care (01) | LOC: LBN 16:16 | PROVIDERS: PCP Nurse Practitioner Family; Visit Provider Internal Medicine Infectious Disease | DX: A31.0 Pulmonary mycobacterial infection (principal) | CPT/HCPCS: 87116; 87206 ==

== ENCOUNTER 2022-06-19 13:31 | Emergency (ER) | payer MEDICARE, SELFPAY ==
[2022-06-19] VITALS (24 sets, daily range): BP systolic 96–124; BP diastolic 52–65; PULSE 79–100; RESP 20; O2SAT 83–96
--- NOTE | 2022-06-19 13:30 | DI.CT_ITS ---
Exam(s) CT CHEST PE CTA EXAM: CT CHEST PE CTA CLINICAL HISTORY: new onset hemoptysis, hx of environmental pneumon. TECHNIQUE: Imaging Protocol: Axial CT angiography was performed with multi-slice acquisition and mu lti-planar and/or 3D reconstructions. CONTRAST MATERIAL: Intravenous: Contrast contrast volume:50 mL COMPARISON: CT CT CHEST WO from 04/27/2022 FINDINGS: Tracheobronchial tree: There is fluid seen in the airway to the lower lobes bilaterally, right greate r than left. Pulmonary parenchyma: There is an infiltrate seen in the posterior left upper lobe. There is stable spiculated 0.8 cm density in the right upper lobe. There has been slight interval increase in size o f a spiculated nodule in the left upper lobe. It now measures 0.5 cm. There is a 0.9 cm cyst in the left upper lobe with soft tissue density in the dependent portion. Previously this was a solid nodu le. Emphysematous changes are present in the lungs. Pulmonary Arteries: No evidence of filling defect to suggest pulmonary emboli. Mediastinum and Beatriz: No dominant adenopathy or fluid collection. The esophagus is unremarkable. Visualized thyroid gland: Unremarkable. Pleura: No effusion or pneumothorax. Heart: The heart is not dilated. Mild coronary artery calcification is present. No pericardial effus ion. Aorta: Thoracic aorta non-dilated. No evidence of dissection. Atherosclerosis is present. Upper abdomen: Unremarkable. Soft tissues: Unremarkable. Bones: Within normal limits for the patient's age. IMPRESSION: 1. No evidence of pulmonary embolism, thoracic aortic dissection or aneurysm. 2. Fluid seen in bronchi in the lower lobes bilaterally, right greater than left. This may represent mucus and or hemorrhage. 3. Severe emphysema. 4. There is a cyst in the left upper lobe with some dependent soft tissue. Infectious process cannot be excluded. 5. Multiple spiculated nodules in the lung some of which have shown slight interval increase in size. In the absence of biopsy, continue with surveillance. RADIATION DOSE DELIVERED: 175.48mGy.cm Total DLP DATA REPOSITORY: All CT scans at this facility are submitted to the National Radiology Data Registry (NRDR) Dose Index Registry (DIR) with the [employer] (ACR). RADIATION OPTIMIZATION: All CT scans at this facility use at least one of these dose optimization te chniques: automated exposure control; mA and/or kV adjustment per patient size (includes targeted exa ms where dose is matched to clinical indication); or iterative reconstruction.
--- NOTE | 2022-06-19 13:46 | W.ED.GENAD ---
Discharge Plan Disposition Patient Disposition: Home Discharge Details Chief Complaint: RespSymp Clinical Impression: Hemoptysis Primary Care Provider: Danay Mckeon ED Provider: Iain Cee Home Meds and New Rx's Prescriptions: No Action azithromycin 500 mg tablet 500 mg PO DAILY rifampin 300 mg capsule 600 mg PO DAILY ethambutol 400 mg tablet 600 mg PO DAILY oxybutynin chloride 5 MG tablet 10 mg PO DAILY Rx Instructions: 2 TABS DAILY.HE (FROM RECORDS) [id number]-epa-[id number] oil-vit D3 1 EACH capsule 1 ea PO DAILY Stiolto Respimat 2.5-2.5 mcg/actuation mist 2 puff inhalation DAILY Qty: 4 8RF guaifenesin [Mucinex] 600 mg tablet extended release 12hr 1,200 mg PO BID Qty: 60 7RF Glucosamine Sulf-Chondroitin 1 EACH capsule 1 ea PO DAILY albuterol sulfate [Ventolin HFA] 200 PUFF HFA aerosol inhaler 2 puff Inhalation .Q4-6H PRN PRN zaleplon 10 mg capsule 10 mg PO HS Patient Comments: TAKE 1 CAPSULE BY MOUTH AT BEDTIME NEEDED cetirizine 10 mg tablet 10 mg PO DAILY mirtazapine 7.5 mg tablet 7.5 mg PO DAILY elderberry fruit 200 mg Capsule 200 mg PO DAILY pantoprazole [Protonix] 40 mg tablet,delayed release (DR/EC) 40 mg PO DAILY Qty: 30 12RF sucralfate [Carafate] 100 mg/mL suspension 5 ml PO .ac/hs 360 Days Qty: 600 12RF Rx Instructions: take 30mins prior to meals and hs metoclopramide HCl [Reglan] 5 mg tablet 5 mg PO QACHS Qty: 120 12RF Discharge Instructions Instructions: Hemoptysis (ED) Additional Instructions: At this time it is vitally important that he follow-up closely with the pulmonology clinic in the next 24 to 48 hours. We have placed a referral for this, and they will be contacting you for the appointment time. Please continue your normal medications, and as we discussed together please avoid any of the foods that you should be avoiding for your reflux. Additionally as we discussed together you have elected for discharge over observation. If you have any change or return of your symptoms whatsoever please return immediately for reassessment. If you notice any worsening of your symptoms, or any new symptoms such as vomiting, diarrhea, fever, chills, shortness of breath, chest pain, numbness, weakness, or fainting , please return immediately to the emergency department for reevaluation. Please follow up with your primary care provider as soon as possible for reassessment and reevaluation. As always, it was a pleasure participating in your medical care today. Referrals: Viviana Benavides MD [ [facility] STAFF PHYSICIAN] - Danay Mckeon [Primary Care Provider] - Medical Decision Making 66-year-old female with a past medical history of chronic tobacco use, COPD, bronchiectasis, GERD, cavitary pulmonary nodules and Mycobacterium avium complex currently receiving treatment with azithromycin, ethambutol, and rifampin. She presents today for hemoptysis. Patient states that this morning she woke up and had her regular coughing and noted a large amount of blood. She had a second episode later in the morning which she saved. Brought in for assessment. Aside for this she denies any chest pain, tearing or ripping sensation, fever, chills, vomiting, diarrhea or other complaints whatsoever. She denies any new shortness of breath or change in her symptoms in general. She has never had any hemoptysis before. No other complaints at this time. No other modifying factors. She does she did Dr. Viviana Dennis pulmonology. Physical exam demonstrates a surprisingly well-appearing female, no respiratory distress whatsoever. She does have a sputum sample that does demonstrate notable hemoptysis, but she only has very minimal intermittent cough here currently. Lungs demonstrate rhonchi but no crackles or wheezes. She appears very stable otherwise. Suspect this is a complication from her MAC with potential mild bleeding made worse by her chronic bronchiectasis, however we will get a CT scan of the chest for further assessment. We will monitor closely and reassess. Patient is notably comfortable otherwise. 4:[address] scan shows evidence of left upper lobe pneumonia, which is very similar to previous findings. Questionable mucus or blood in the right lower lobe. Severe diffuse emphysema. Some mild subtle changes otherwise. Patient has had no additional episodes here in the ED. She feels well, and has requested discharge multiple times during her stay. Laboratory work-up is unremarkable. Patient continues to feel well with no hypoxemia, tachypnea, or signs of respiratory distress whatsoever. At this time we did contact [facility] pulmonology as [facility] pulmonology is currently not on-call. Spoke with Dr. Mace. They do recommend close follow-up for reassessment in the next 24 to 48 hours. Patient otherwise looks notably clinically well. [facility] did review the CT images and did not see any evidence of large vascular structures. I had a long discussion with the patient and her family, weighing the risk and benefits of discharge versus observation patient and family are still requesting discharge. Patient will be discharged with close follow-up with Dr. Dennis. I discussed very clearly needs which would necessitate prompt return for reassessment if she has any return of the hemoptysis or worsening of her breathing whatsoever. Patient understands this. I have extensively reviewed the treatment plan and discharge instructions with the patient and their family. I have addressed all patient concerns at this time. The patient and family was made aware of what symptoms to monitor for that would warrant a return to the emergency department. Discussed the plan with the patient and family, they demonstrate verbal understanding and agreement with our assessment and plan at this time. The documentation in this chart was dictated using [employer] dictation software. Please excuse any dictation errors. FINDINGS: Pulmonary arteries: Normal. No pulmonary emboli. Aorta: Unremarkable. No aortic aneurysm. No aortic dissection. Lungs: The lung volumes are increased. Centrilobular emphysema. There are new thin-walled cysts in the left upper lobe. Mucous/blood within the right lower lobe bronchus with extend into distal bronchi. There is a minimal amount of peribronchiolar inflammatory change. Not seen on the prior examination is a focal infiltrate in the posterior left upper lobe. Spiculated 0.8 cm density in the right upper lobe (image [id number]) shows no significant change since 2020. Solid 0.9 cm nodule in the left upper lobe is now a cyst with dependent soft tissue density that may be a mycetoma. On image number [id number] is a 0.6 cm slightly spiculated nodule that has increased in size. Pleural spaces: Unremarkable. No pneumothorax. No pleural effusion. Heart: The heart is normal in size and configuration. There is no pericardial effusion. There are coronary artery calcifications. Lymph nodes: Unremarkable. No enlarged lymph nodes. Bones/joints: Unremarkable. No acute fracture. Soft tissues: Unremarkable Other findings: The vasculature demonstrates diffuse moderate atherosclerotic calcification. IMPRESSION: 1. Left upper lobe pneumonia. 2. Mucus and/or blood in the right lower lobe. 3. Severe diffuse emphysema. New cystic changes in the left upper lobe. There is a tiny soft tissue density within one of the smaller cysts could be a mycetoma. 4. Multiple subcentimeter spicules or nodules within the lungs. Some of these have increased slightly in size since the examination performed last year. In the absence of biopsy continue with surveillance. The nodules seen in the past get smaller and/or change into cystic areas. Thank you for allowing us to participate in the care of your patient. Dictated and Authenticated by: Dennis Zafar MD [facility] General Date/Time Provider Initiated Documentation: 06/19/22 13:32. HPI Narrative: 66-year-old female with a past medical history of chronic tobacco use, COPD, bronchiectasis, GERD, cavitary pulmonary nodules and Mycobacterium avium complex currently receiving treatment with azithromycin, ethambutol, and rifampin. She presents today for hemoptysis. Patient states that this morning she woke up and had her regular coughing and noted a large amount of blood. She had a second episode later in the morning which she saved. Brought in for assessment. Aside for this she denies any chest pain, tearing or ripping sensation, fever, chills, vomiting, diarrhea or other complaints whatsoever. She denies any new shortness of breath or change in her symptoms in general. She has never had any hemoptysis before. No other complaints at this time. No other modifying factors. She does she did Dr. Viviana Dennis pulmonology. Related Data Home Medications Medication Instructions Recorded Confirmed glucosamine sulfate dipotassium Cl 1 ea PO DAILY 11/20/12 06/19/22 500 mg-chondroitin 400 mg capsule (Glucosamine Sulfate 2 KCL-Chondroitin) oxybutynin chloride 5 mg tablet 10 mg PO DAILY 02/13/14 06/19/22 ry-0-alm-epa-fish oil-vit D3 900 1 ea PO DAILY 05/12/14 06/19/22 mg-1,000 unit capsule albuterol sulfate 90 mcg/actuation 2 puff inhalation .Q4-6H PRN PRN 01/26/17 06/19/22 aerosol inhaler (Ventolin HFA) cetirizine 10 mg tablet 10 mg PO DAILY 11/11/20 06/19/22 mirtazapine 7.5 mg tablet 7.5 mg PO DAILY 11/11/20 06/19/22 zaleplon 10 mg capsule 10 mg PO HS 11/11/20 06/19/22 elderberry fruit 200 mg capsule 200 mg PO DAILY 08/19/21 06/19/22 metoclopramide HCl 5 mg tablet 5 mg PO QACHS #120 tabs 10/22/21 06/19/22 (Reglan) pantoprazole 40 mg tablet,delayed 40 mg PO DAILY #30 tabs 10/22/21 06/19/22 release (Protonix) sucralfate 100 mg/mL oral 5 ml PO .ac/hs 12 months #600 mL 10/22/21 06/19/22 suspension (Carafate) tiotropium 2.5 mcg-olodaterol 2.5 2 puff inhalation DAILY #4 grams 11/22/21 06/19/22 mcg/actuation mist for inhalation (Stiolto Respimat) guaifenesin 600 mg tablet, 1,200 mg PO BID #60 tabs 03/08/22 06/19/22 extended release 12 hr (Mucinex) azithromycin 500 mg tablet 500 mg PO DAILY 04/06/22 06/19/22 ethambutol 400 mg tablet 600 mg PO DAILY 04/06/22 06/19/22 rifampin 300 mg capsule 600 mg PO DAILY 04/06/22 06/19/22 Previous Rx's Medication Instructions Recorded metoclopramide HCl 5 mg tablet 5 mg PO QACHS #120 tabs 10/22/21 (Reglan) pantoprazole 40 mg tablet,delayed 40 mg PO DAILY #30 tabs 10/22/21 release (Protonix) sucralfate 100 mg/mL oral 5 ml PO .ac/hs 12 months #600 mL 10/22/21 suspension (Carafate) tiotropium 2.5 mcg-olodaterol 2.5 2 puff inhalation DAILY #4 grams 11/22/21 mcg/actuation mist for inhalation (Stiolto Respimat) guaifenesin 600 mg tablet, 1,200 mg PO BID #60 tabs 03/08/22 extended release 12 hr (Mucinex) Allergies Allergy/AdvReac Type Severity Reaction Status Date / Time No Known Allergies Allergy Unverified 06/19/22 13:57 General Stated Complaint: RespSymp FILOMENA: 3 Review of Systems All systems reviewed & are unremarkable except as noted in HPI and below PFSH All Active Problems (Updated 06/19/22 @ 16:45 by Iain Cee DO) Hemoptysis (Acute) Hiatal hernia with gastroesophageal reflux disease and esophagitis (Acute) Smoker (Acute) tyring to quit Mycobacterial infection, atypical (Acute) Aspiration pneumonia (Acute) COPD (chronic obstructive pulmonary disease) (Chronic) Tobacco use (Chronic) Chest pain (Acute) Vomiting (Acute) Cavitary lesion of lung (Chronic) Medical History Bronchiectasis Central perforation of tympanic membrane, 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 HSIL (high grade squamous intraepithelial lesion) on Pap smear of cervix Hypotension Nicotine dependence, cigarettes, uncomplicated Postoperative examination Preop examination Pulmonary nodules Surgical History Femur fracture, left H/O cone biopsy of cervix 02/10/21. 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, H/O varicose vein ligation H/O vein stripping History of back surgery Hx of appendectomy Hx of cholecystectomy S/P LEEP Family History Self Unknown family medical history Social History Smoking/Tobacco Use Status: Current every day Tobacco Type: cigarettes Years smoked: 50 Smoking risk assessment performed?: Yes Alcohol Intake: never Drug use: Occasionally Substance use type: does not use Details: marijuana: pt. reports it has been months and no longer uses Do you feel safe at home: Yes Do you feel safe in your relationship?: Yes Additional Social history: unable to assess privately Female Reproductive History Menstrual Menopause type: natural Exam Narrative Exam Narrative: 1.Const: Well-nourished, Well-developed, appearing stated age 2.Eyes: PERRL, no conjunctival injection, and symmetrical lids. 3.ENT: Atraumatic external nose and ears. Moist MM. Neck: Symmetric, trachea midline, No thyromegaly. 4.CVS: +S1/S2, No murmurs or gallops. Peripheral pulses 2+ and equal in all extremities. Brisk capillary refill in all extremities. 5.RESP: Unlabored respiratory effort. Mild rhonchi, but no focal crackles or wheezes. 6.GI: Soft, Nontender/Nondistended, No hepatosplenomegaly. No guarding or rebound. 7.MSK: Normocephalic/Atraumatic, Extremities w/o deformity or ttp No cyanosis or clubbing, Normal movement of all extremities 8.Skin: Warm, Dry. No rashes or lesions. 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 Sensation grossly intact, no focal neurologic deficits. 10.Psych: (AAO) x3. Appropriate mood and affect Course Vital Signs Vital signs: Vital Signs Pulse 100 H 06/19/22 13:34 Respiratory Rate 20 06/19/22 13:34 Blood Pressure 124/65 06/19/22 13:34 Pulse Oximetry 94 06/19/22 13:34 Pulse 100 H 06/19/22 13:34 Respiratory Rate 20 06/19/22 13:34 Blood Pressure 124/65 06/19/22 13:34 Blood Pressure Position Sitting 06/19/22 13:34 Pulse Oximetry 94 06/19/22 13:34 Oxygen Delivery Method Room Air 06/19/22 13:34 Oxygen Flow Rate 0 06/19/22 13:34
[2022-06-19 14:19] LABS: BE (Venous) 5 mmol/L (-2-3); HCO3 (Venous) 31 mmol/L (23-28); O2 Sat (Venous) 64 %; TCO2 (Venous) 28 mmol/L (24-29); pCO2 (Venous) 59 mmHg (41-51); pH (Venous) 7.33 (7.31-7.41); pO2 (Venous) 33 mmHg
[2022-06-19 14:21] LABS: Abs Immature Grans 0.01 10^3/uL (0.0-0.06); Absolute Basophil Count 0.02 10^3/uL (0.0-0.2); Absolute Eosinophil Count 0.05 10^3/uL (0.0-0.7); Absolute Lymphocyte Count 1.13 10^3/uL (1.2-3.4); Absolute Neutrophil Count 3.62 10^3/uL (1.2-6.7); Basophils % 0.4; HCT 40.7 % (36.0-46.0); HGB 13.4 g/dL (11.2-15.7); Immature Grans % 0.2; Lymphocytes % 21.6; MCH 32.4 pg (27.0-33.0); MCHC 32.9 % (32.0-36.0); MCV 99 fL (80-95); MPV 10.4 fL (8.0-11.0); Monocytes % 7.6; Neutrophils % 69.2; Platelet Count 139 10^3/uL (130-400); RBC 4.13 10^6/uL (3.93-5.22); RDW 12.5 % (11.7-14.6); RDW-SD 45.1 fL; WBC 5.23 10^3/uL (4.4-10.8)
[2022-06-19 14:37] LABS: ALT 21 U/L (14-59); AST 20 U/L (15-37); Albumin 3.4 g/dL (3.4-5.0); Alkaline Phosphatase 90 U/L (46-116); Anion Gap 4.4 mmol/L (3-11); BUN 15 mg/dL (7-18); Bilirubin, Total 0.6 mg/dL (0.2-1.0); CO2 32.6 mmol/L (21.0-32.0); CREATININE 0.8 mg/dL (0.55-1.02); Calcium 9.1 mg/dL (8.5-10.1); Chloride 104 mmol/L (98-107); Estimated GFR 80.21 (mL/min/1.73m2); Glucose 135 mg/dL (74-106); Potassium 3.7 mmol/L (3.5-5.1); Sodium 141 mmol/L (136-145); Total Protein 7.7 g/dL (6.4-8.2)
[2022-06-19 14:59] LABS: COVID-19 PCR Negative (Negative); Influenza A PCR Negative (Negative); Influenza B PCR Negative (Negative); RSV PCR Negative (Negative); Source Nasopharynx
[2022-06-19] MEDS: Omnipaque 350 MG/ML 100 ML BTL IJ (15:02)
[2022-06-19] MEDS: Normal Saline - Diluent 50 ML VIAL IJ (15:03)
--- NOTE | 2022-06-19 15:55 | DI.VRAD_ITS ---
PROCEDURE INFORMATION: Exam: CTA Chest With Contrast Exam date and time: 06/19/2022 3:06 PM Age: 66 years old Clinical indication: Other: New onset hemoptysis, HX of environmental pneumonia TECHNIQUE: Imaging protocol: Computed tomographic angiography of the chest with contrast. 3D rendering (Not supervised by radiologist): MIP and/or 3D reconstructed images were created by the technologist. COMPARISON: CT CHEST PE CTA 09/21/2021 9:40 PM FINDINGS: Pulmonary arteries: Normal. No pulmonary emboli. Aorta: Unremarkable. No aortic aneurysm. No aortic dissection. Lungs: The lung volumes are increased. Centrilobular emphysema. There are new thin-walled cysts in the left upper lobe. Mucous/blood within the right lower lobe bronchus with extend into distal bronchi. There is a minimal amount of peribronchiolar inflammatory change. Not seen on the prior examination is a focal infiltrate in the posterior left upper lobe. Spiculated 0.8 cm density in the right upper lobe (image [id number]) shows no significant change since 2020. Solid 0.9 cm nodule in the left upper lobe is now a cyst with dependent soft tissue density that may be a mycetoma. On image number [id number] is a 0.6 cm slightly spiculated nodule that has increased in size. Pleural spaces: Unremarkable. No pneumothorax. No pleural effusion. Heart: The heart is normal in size and configuration. There is no pericardial effusion. There are coronary artery calcifications. Lymph nodes: Unremarkable. No enlarged lymph nodes. Bones/joints: Unremarkable. No acute fracture. Soft tissues: Unremarkable. Other findings: The vasculature demonstrates diffuse moderate atherosclerotic calcification. IMPRESSION: 1. Left upper lobe pneumonia. 2. Mucus and/or blood in the right lower lobe. 3. Severe diffuse emphysema. New cystic changes in the left upper lobe. There is a tiny soft tissue density within one of the smaller cysts could be a mycetoma. 4. Multiple subcentimeter spicules or nodules within the lungs. Some of these have increased slightly in size since the examination performed last year. In the absence of biopsy continue with surveillance. The nodules seen in the past get smaller and/or change into cystic areas. Dictated and Authenticated by: Dennis Zafar MD. Ordering:GUILLERMO Timmons MD
--- NOTE | 2022-06-19 16:52 | NUR.NOTE ---
Referral made to Pulmonology tomorrow 06/[address] Cee. Put the referral in the care manger's box for f/u assistance.Nursing Note:
== END 2022-06-19 17:00 | disposition home or self-care (01) ==
PROVIDERS: Emergency Provider Student in an Organized Health Care Education/Training Program; PCP Nurse Practitioner Family
DX: R04.2 Hemoptysis (principal); J44.9 Chronic obstructive pulmonary disease, unspecified; F17.200 Nicotine dependence, unspecified, uncomplicated; Z86.16 Personal history of COVID-19; Z20.822 Contact with and (suspected) exposure to COVID-19
CPT/HCPCS: 36415; 71275; 80053; 82805; 87637; 99281; 99285; 85025; J3490

== ENCOUNTER 2022-06-30 12:52 | Outpatient (CLI) | payer MEDICARE, SELFPAY ==
--- NOTE | 2022-06-30 12:45 | RT.EKG_ITS ---
APPROVED REPORT Exam: Resting ECG Reason for Exam: Therapeutic Drug Monitoring Patient Location: O HR:90 bpm ECG Measurements Heart Rate 90 AXIS KS 131 P 84 QRSd 83 QRS 57 QT 367 T 49 QTc 449 Conclusion Sinus rhythm...normal P axis, V-rate 50- 99 Poor R wave progression
== END 2022-06-30 12:53 | disposition home or self-care (01) ==
PROVIDERS: PCP Nurse Practitioner Family; Visit Provider Nurse Practitioner Family
DX: Z79.899 Other long term (current) drug therapy (principal)
CPT/HCPCS: 93005; 93010

== ENCOUNTER 2022-09-30 15:24 | Outpatient (REF) | payer MEDICARE, SELFPAY ==
[2022-09-30 19:11] LABS: Absolute Basophil Count 0.02 10^3/uL (0.0-0.2); Absolute Eosinophil Count 0.05 10^3/uL (0.0-0.7); Absolute Lymphocyte Count 1.05 10^3/uL (1.2-3.4); Absolute Monocyte Count 0.35 10^3/uL (0.1-0.8); Absolute Neutrophil Count 1.85 10^3/uL (1.2-6.7); Basophils % 0.6; Eosinophils % 1.5; HCT 43.2 % (36.0-46.0); Lymphocytes % 31.6; MCH 32.2 pg (27.0-33.0); MCHC 32.4 % (32.0-36.0); MCV 99 fL (80-95); MPV 11.3 fL (8.0-11.0); Monocytes % 10.5; Neutrophils % 55.8; Platelet Count 159 10^3/uL (130-400); RBC 4.35 10^6/uL (3.93-5.22); RDW 12.5 % (11.7-14.6); RDW-SD 45.9 fL; WBC 3.32 10^3/uL (4.4-10.8)
[2022-09-30 19:25] LABS: ALT 18 U/L (14-59); AST 28 U/L (15-37); Albumin 3.4 g/dL (3.4-5.0); Alkaline Phosphatase 96 U/L (46-116); BUN 13 mg/dL (7-18); Bilirubin, Total 0.7 mg/dL (0.2-1.0); CREATININE 0.6 mg/dL (0.55-1.02); Calcium 9.2 mg/dL (8.5-10.1); Chloride 106 mmol/L (98-107); Glucose 114 mg/dL (74-106); Potassium 4.1 mmol/L (3.5-5.1); Sodium 144 mmol/L (136-145); Total Protein 7.7 g/dL (6.4-8.2)
[2022-09-30 20:12] LABS: Hemoglobin A1C 5.3 % (<5.7)
== END 2022-09-30 15:25 | disposition home or self-care (01) ==
LOC: NCHCN 15:24
PROVIDERS: PCP Nurse Practitioner Family; Visit Provider Nurse Practitioner Family
DX: R63.4 Abnormal weight loss (principal); R73.09 Other abnormal glucose
CPT/HCPCS: 80053; 83036; 85025

== ENCOUNTER → 2023-01-17 08:56 | Outpatient (BNVA) | payer MEDICARE, SELFPAY | PROVIDERS: PCP Nurse Practitioner Family; Referring Provider Nurse Practitioner Family; Visit Provider Physician Assistant Surgical | DX: J47.9 Bronchiectasis, uncomplicated (principal); R91.8 Other nonspecific abnormal finding of lung field; J43.2 Centrilobular emphysema; Z79.899 Other long term (current) drug therapy; F17.210 Nicotine dependence, cigarettes, uncomplicated; J98.4 Other disorders of lung; R04.2 Hemoptysis; A31.9 Mycobacterial infection, unspecified | CPT/HCPCS: 99214 ==

== ENCOUNTER → 2023-05-02 04:19 | Outpatient (CLI) | payer MEDICARE, SELFPAY ==
--- NOTE | 2023-05-02 | DI.MAMMO_ITS ---
Exam(s) MAMMO SCREENING EXAM: MAMMO SCREENING CLINICAL HISTORY: SCREENING, Z12.31. TECHNIQUE: Bilateral full field digital CC and MLO mammographic images were obtained with 3D tomosyn thesis and utilizing computer aided detection (CAD). COMPARISON: Prior mammograms were reviewed. FINDINGS: There has been no significant change in the appearance and distribution of the fibroglandular tissue. Benign macro calcifications are again noted in both breasts. There are no new spiculated masses nor malignant appearing microcalcification groups. There is no significant architectural distortion nor skin thickening-retraction. IMPRESSION: No radiographic evidence of malignancy. BI-RADS Category 1 - Negative Breast Density - Category C - Heterogeneously dense Breast density Category C or D implies that the patient has dense breast tissue. Dense breast tissue can make it harder to find cancer on a mammogram. Dense breast tissue is also associated with an incr eased risk of breast cancer. This information about the result of the mammogram report was provided to the patient to raise their awareness. Use this report when you speak with the patient about their risks for breast cancer, which includes their family history. At that time, you may recommend additional screening tests (Ultrasoun d or MRI) as these tests may add significant information. A negative radiographic report should not delay biopsy if a dominant or clinically suspicious mass is present. Up to ten percent of cancers are not identified on mammography. A negative report may reinforce clinical impression. Adenosis and dense breasts may obscure an underlying neoplasm. False positive reports average 6 to 10%. Patient will receive a letter notifying them of these results.
== END ==
PROVIDERS: PCP Nurse Practitioner Family; Visit Provider Nurse Practitioner Family
DX: Z12.31 Encounter for screening mammogram for malignant neoplasm of breast (principal)
CPT/HCPCS: 77063; 77067

== ENCOUNTER → 2023-07-25 08:40 | Outpatient (BNVA) | payer MEDICARE, SELFPAY | PROVIDERS: PCP Nurse Practitioner Family; Referring Provider Nurse Practitioner Family; Visit Provider Student in an Organized Health Care Education/Training Program | DX: J47.9 Bronchiectasis, uncomplicated (principal); R91.8 Other nonspecific abnormal finding of lung field; J43.2 Centrilobular emphysema; J98.4 Other disorders of lung; A31.9 Mycobacterial infection, unspecified; F17.210 Nicotine dependence, cigarettes, uncomplicated | CPT/HCPCS: 99214 ==

== ENCOUNTER → 2023-08-03 04:30 | Outpatient (CLI) | payer MEDICARE, SELFPAY ==
--- NOTE | 2023-08-03 07:15 | DI.CT_ITS ---
Exam(s) CT CHEST WO EXAM: CT CHEST WO CLINICAL HISTORY: assess resolution fluid bronchi,multiple pulmonary nodules,mr91.8. TECHNIQUE: Multi planar reconstructions were performed. CONTRAST MATERIAL: None COMPARISON: CT CT CHEST PE CTA from 06/19/2022 FINDINGS: CHEST: LUNGS: Bilateral emphysematous changes are again noted. In the left upper lobe the previously cavitated nodule is no longer cavitated but remains spiculated, presently measuring 1.2 by 0.6 cm. Lateral to this is a small cavitated nodule which has slightly d ecreased in size. Lower down in the left lower lobe there is an unchanged peripherally located nodul e measuring 5-6 mm. No other significant left lung findings and no pleural effusion. There is prese ntly no fluid in the left mainstem bronchi and more peripheral left bronchi. In the opposite-right lung a spiculated nodular density in the upper lobe is again noted, presently m easuring 8 mm, exhibiting minimal if any significant change from the previous study. Lower down in t he right lung field there is some mild infiltrate-atelectasis in the medial basal segment of the righ t lower lobe. There is no pleural effusion. The amount of fluid in the right mainstem bronchus has significantly decreased. The right mainstem bronchus is presently clear. There is small amount of f luid in 2nd and 3rd order bronchi on the right side again noted. MEDIASTINUM: There is no obvious hilar nor mediastinal adenopathy. Visualized thyroid unremarkable.No obvious axillary adenopathy CARDIAC: Heart size is normal. There is no pericardial effusion.Caliber of the thoracic aorta is wit hin normal limits. VISUALIZED UPPER ABDOMEN:Gallbladder is surgically absent. Calculus in lower pole left kidney is aga in noted. OSSEOUS: No significant osseous lesions.. IMPRESSION: 1. Minimal change in the previously described nodular densities seen in the lung foley. However, th e amount of fluid in the bronchial tree has significantly decreased, particularly within the right ma instem bronchus. 2. No pleural effusions nor obvious new intrathoracic adenopathy evident. 3. RADIATION DOSE DELIVERED: 287.39mGy.cm Total DLP DATA REPOSITORY: All CT scans at this facility are submitted to the National Radiology Data Registry (NRDR) Dose Index Registry (DIR) with the [employer] (ACR). RADIATION OPTIMIZATION: All CT scans at this facility use at least one of these dose optimization te chniques: automated exposure control; mA and/or kV adjustment per patient size (includes targeted exa ms where dose is matched to clinical indication); or iterative reconstruction.
== END ==
PROVIDERS: PCP Nurse Practitioner Family; Visit Provider Student in an Organized Health Care Education/Training Program
DX: R91.8 Other nonspecific abnormal finding of lung field (principal)
CPT/HCPCS: 71250

== ENCOUNTER 2023-08-08 15:10 | Outpatient (REF) | payer MEDICARE, SELFPAY | END 2023-08-08 15:11 | disposition home or self-care (01) | LOC: LBN 15:10 | PROVIDERS: Visit Provider Student in an Organized Health Care Education/Training Program | DX: A31.9 Mycobacterial infection, unspecified (principal) | CPT/HCPCS: 87070; 87205 ==

== ENCOUNTER 2023-08-10 04:32 | Outpatient (CLI) | payer MEDICARE, SELFPAY ==
[2023-08-10] MEDS: Levalbuterol HFA 15 GM INH 4 PUFF IH (08:51)
[2023-08-10] MEDS: Inhaler, Assist Device 1 EACH MC (08:51)
--- NOTE | 2023-08-10 09:37 | W.PFT ---
Date of service: 08/10/23 Time of Service: 07:59 Pulmonary Function Test Result Indications: Bronchiectasis Interpretation Spirometry: There is severe airflow limitation. No bronchodilator response. Lung Volumes: There is hyperinflation and air trapping Diffusion Capacity: Decreased diffusion Airway Pressure: Increased airways resistance Impression Severe airflow obtruction with air trapping and a decreased diffusion. Clinical Correlation therefore is recommended.
== END 2023-08-10 04:33 | disposition home or self-care (01) ==
LOC: RT 04:32
PROVIDERS: Visit Provider Student in an Organized Health Care Education/Training Program
DX: J47.9 Bronchiectasis, uncomplicated (principal)
CPT/HCPCS: 94060; 94726; 94729

== ENCOUNTER 2023-09-27 20:39 | Outpatient (REF) | payer MEDICARE, SELFPAY ==
[2023-09-27 16:44] LABS: Abs Immature Grans 0.02 10^3/uL (0.0-0.06); Absolute Basophil Count 0.04 10^3/uL (0.0-0.2); Absolute Eosinophil Count 0.05 10^3/uL (0.0-0.7); Absolute Lymphocyte Count 1.29 10^3/uL (1.2-3.4); Absolute Monocyte Count 0.49 10^3/uL (0.1-0.8); Absolute Neutrophil Count 3.23 10^3/uL (1.2-6.7); Basophils % 0.8 %; HCT 44.8 % (36.0-46.0); HGB 14.2 g/dL (11.2-15.7); Immature Grans % 0.4 %; Lymphocytes % 25.2 %; MCH 31.1 pg (27.0-33.0); MCHC 31.7 % (32.0-36.0); MCV 98 fL (80-95); MPV 11.4 fL (8.0-11.0); Monocytes % 9.6 %; Platelet Count 177 10^3/uL (130-400); RBC 4.56 10^6/uL (3.93-5.22); RDW-SD 46.4 fL; WBC 5.12 10^3/uL (4.4-10.8)
[2023-09-27 17:50] LABS: ALT 29 U/L (14-59); AST 24 U/L (15-37); Albumin 3.9 g/dL (3.4-5.0); Alkaline Phosphatase 77 U/L (46-116); Anion Gap 6.7 mmol/L (3-11); BUN 18 mg/dL (7-18); Bilirubin, Total 0.51 mg/dL (0.2-1.0); CO2 31.3 mmol/L (21.0-32.0); CREATININE 0.8 mg/dL (0.55-1.02); Chloride 104 mmol/L (98-107); Estimated GFR 79.22 (mL/min/1.73m2); FREE T4 1.13 ng/dL (0.76-1.46); Glucose 99 mg/dL (74-106); Potassium 4.4 mmol/L (3.5-5.1); Sodium 142 mmol/L (136-145); TSH 1.59 uIU/Ml (0.36-3.74); Total Protein 7.8 g/dL (6.4-8.2)
[2023-09-27 19:10] LABS: Calculated LDL 121 mg/dL (<100); Cholesterol 209 mg/dL (<200); HDL Cholesterol 71 mg/dL (40-60); Triglyceride 85 mg/dL (<150)
== END 2023-09-27 20:40 | disposition home or self-care (01) ==
LOC: NCHCN 20:39
PROVIDERS: Visit Provider Nurse Practitioner Family
DX: E78.5 Hyperlipidemia, unspecified (principal); E04.2 Nontoxic multinodular goiter; F32.9 Major depressive disorder, single episode, unspecified
CPT/HCPCS: 80053; 80061; 84439; 84443; 85025

== ENCOUNTER → 2023-10-24 07:34 | Outpatient (BNVA) | payer MEDICARE, SELFPAY | PROVIDERS: PCP Nurse Practitioner Family; Referring Provider Nurse Practitioner Family; Visit Provider Physician Assistant Surgical | DX: J47.9 Bronchiectasis, uncomplicated (principal); R91.8 Other nonspecific abnormal finding of lung field; J43.2 Centrilobular emphysema; F17.210 Nicotine dependence, cigarettes, uncomplicated; J98.4 Other disorders of lung; A31.9 Mycobacterial infection, unspecified | CPT/HCPCS: 99214 ==

== ENCOUNTER 2023-10-26 03:40 | Outpatient (CLI) | payer MEDICARE, SELFPAY ==
--- NOTE | 2023-10-26 | DI.DEXA_ITS ---
Exam(s) XR DEXA BONE DENSITY W/WO JOHNATHAN EXAM: XR DEXA BONE DENSITY W/WO JOHNATHAN CLINICAL HISTORY: M81.0 Age related osteoporosis w/o current pathological fracture TECHNIQUE: COMPARISON: DX DEXA BONE DENSITY WITH JOHNATHAN from 08/25/2015 CR XR DEXA BONE DENSITY W/WO JOHNATHAN from 12/24/2020 FINDINGS: Lateral Spine Image: Unremarkable. No compression deformities identified. Right hip: Total T-Score: -2.9. This compares to -3.6 on the prior examination. Total Z-Score: -1.4 T- and Z-scores: Findings are consistent with osteoporosis. Lumbar Spine: Total T-Score: -1.2. This compares to -1.8 on the prior examination. Total Z-Score: 0.9 T- and Z-scores: Findings are consistent with osteopenia. Note is made of osteoporosis in the L1 chay tebral body with a T-score of -2.9. Right forearm: Total T-score:-3.7. This compares to -3.5 on the prior examination. Total Z-score:-1.7 T and Z-score is: Findings are consistent with osteoporosis. IMPRESSION: Osteoporosis in the right forearm and the L1 vertebral body.
== END 2023-10-26 04:00 ==
LOC: DI 03:40
PROVIDERS: PCP Nurse Practitioner Family; Visit Provider Nurse Practitioner Family
DX: M81.0 Age-related osteoporosis without current pathological fracture (principal); Z13.820 Encounter for screening for osteoporosis
CPT/HCPCS: 77080

== ENCOUNTER 2023-12-17 07:23 | Emergency (ER) | payer MEDICARE, SELFPAY ==
[2023-12-17] VITALS (55 sets, daily range): BP systolic 79–128; BP diastolic 38–92; PULSE 66–127; RESP 16–34; TEMP 36.6; O2SAT 85–98
--- NOTE | 2023-12-17 07:15 | RT.EKG_ITS ---
APPROVED REPORT Exam: Resting ECG Reason for Exam: dyspnea Patient Location: E HR:103 bpm ECG Measurements Heart Rate 103 AXIS TN 108 P 74 QRSd 78 QRS 72 QT 358 T 56 QTc 470 Conclusion Sinus tachycardia...rate> 99 Consider anteroseptal infarct...Q >30mS, dimin R, V1-V2
--- NOTE | 2023-12-17 07:42 | ED.GENADUL_ITS ---
Discharge Plan Disposition Patient Disposition: Home Condition: Stable Discharge Details Clinical Impression: Shortness of breath, COPD exacerbation Primary Care Provider: Melva Francis ED Provider: Ino Beaulieu Home Meds and New Rx's Prescriptions: New prednisone 20 mg tablet 60 mg PO DAILY 4 Days Qty: 12 0RF levofloxacin 750 mg tablet 750 mg PO DAILY Qty: 5 0RF Continued oxybutynin chloride 5 MG tablet 10 mg PO DAILY Rx Instructions: 2 TABS DAILY.HE (FROM RECORDS) if-[id number]-fish oil-vit D3 1 EACH capsule 1 ea PO DAILY guaifenesin [Mucinex] 600 mg tablet extended release 12hr 1,200 mg PO BID Qty: 60 7RF Stiolto Respimat 2.5-2.5 mcg/actuation mist See Rx Instructions .ROUTE .COMPLEX Qty: 4 12RF Dose Instruction: INHALE TWO PUFFS BY MOUTH EVERY DAY Rx Instructions: INHALE TWO PUFFS BY MOUTH EVERY DAY sucralfate 100 mg/mL suspension See Rx Instructions .ROUTE .COMPLEX Qty: 600 12RF Dose Instruction: TAKE 5ML BY MOUTH BEFORE MEALS AND AT BEDTIME FOR 12 MONTHS....TAKE 30 MINUTES PRIOR TO MEALS AND BEDTIME Rx Instructions: TAKE 5ML BY MOUTH BEFORE MEALS AND AT BEDTIME FOR 12 MONTHS....TAKE 30 MINUTES PRIOR TO MEALS AND BEDTIME pantoprazole 40 mg tablet,delayed release (DR/EC) See Rx Instructions .ROUTE .COMPLEX Qty: 30 12RF Dose Instruction: TAKE ONE TABLET BY MOUTH EVERY DAY Rx Instructions: TAKE ONE TABLET BY MOUTH EVERY DAY metoclopramide HCl 5 mg tablet See Rx Instructions .ROUTE .COMPLEX Qty: 120 12RF Dose Instruction: TAKE 1 TABLET BY MOUTH BEFORE MEALS AND AT BEDTIME Rx Instructions: TAKE 1 TABLET BY MOUTH BEFORE MEALS AND AT BEDTIME Glucosamine Sulf-Chondroitin 1 EACH capsule 1 ea PO DAILY albuterol sulfate [Ventolin HFA] 200 PUFF HFA aerosol inhaler 2 puff Inhalation .Q4-6H PRN PRN zaleplon 10 mg capsule 10 mg PO HS Patient Comments: TAKE 1 CAPSULE BY MOUTH AT BEDTIME NEEDED cetirizine 10 mg tablet 10 mg PO DAILY mirtazapine 7.5 mg tablet 7.5 mg PO DAILY elderberry fruit 200 mg Capsule 200 mg PO DAILY Discharge Instructions Additional Instructions: Follow-up with your primary care provider especially if symptoms continue this week If you feel more ill or have worsening shortness of breath return to the emergency department for reevaluation HPI General Mode of arrival: EMS . Date/Time Provider Initiated Documentation: 12/17/23 07:24 . Limitations to Documentation: no limitations . Information obtained by: patient . History of Present Illness 68 year old F presents to the emergency department with the chief complaint of dyspnea, described as moderate, Patient started experiencing this week(s) (2) and it has been intermittent. Rest improves symptom(s), Movement worsens symptoms . Patient notes cough and shortness of breath; denies chest pain and fever/chills. Related Data Home Medications ?Medication ?Instructions ?Recorded ?Confirmed glucosamine sulfate dipotassium Cl 1 ea PO DAILY 11/20/12 12/17/23 500 mg-chondroitin 400 mg capsule (Glucosamine Sulfate 2 KCL-Chondroitin) oxybutynin chloride 5 mg tablet 10 mg PO DAILY 02/13/14 12/17/23 rg-1-emp-epa-fish oil-vit D3 900 1 ea PO DAILY 05/12/14 12/17/23 mg-1,000 unit capsule albuterol sulfate 90 mcg/actuation 2 puff inhalation .Q4-6H PRN PRN 01/26/17 12/17/23 aerosol inhaler (Ventolin HFA) cetirizine 10 mg tablet 10 mg PO DAILY 11/11/20 12/17/23 mirtazapine 7.5 mg tablet 7.5 mg PO DAILY 11/11/20 12/17/23 zaleplon 10 mg capsule 10 mg PO HS 11/11/20 12/17/23 elderberry fruit 200 mg capsule 200 mg PO DAILY 08/19/21 12/17/23 guaifenesin 600 mg tablet, 1,200 mg (2 x 600 mg) PO BID #60 12/10/22 12/17/23 extended release 12 hr (Mucinex) tabs tiotropium 2.5 mcg-olodaterol 2.5 See Rx Instructions .Route 07/10/23 12/17/23 mcg/actuation mist for inhalation .COMPLEX #4 grams (Stiolto Respimat) sucralfate 100 mg/mL oral See Rx Instructions .Route 10/31/23 12/17/23 suspension .COMPLEX #600 mL pantoprazole 40 mg tablet,delayed See Rx Instructions .Route 11/01/23 12/17/23 release .COMPLEX #30 tabs metoclopramide HCl 5 mg tablet See Rx Instructions .Route 11/17/23 12/17/23 .COMPLEX #120 tabs levofloxacin 750 mg tablet 750 mg PO DAILY #5 tabs 12/17/23 prednisone 20 mg tablet 60 mg (3 x 20 mg) PO DAILY 4 days 12/17/23 #12 tabs Previous Rx's ?Medication ?Instructions ?Recorded guaifenesin 600 mg tablet, 1,200 mg (2 x 600 mg) PO BID #60 12/10/22 extended release 12 hr (Mucinex) tabs tiotropium 2.5 mcg-olodaterol 2.5 See Rx Instructions .Route 07/10/23 mcg/actuation mist for inhalation .COMPLEX #4 grams (Stiolto Respimat) sucralfate 100 mg/mL oral See Rx Instructions .Route 10/31/23 suspension .COMPLEX #600 mL pantoprazole 40 mg tablet,delayed See Rx Instructions .Route 11/01/23 release .COMPLEX #30 tabs metoclopramide HCl 5 mg tablet See Rx Instructions .Route 11/17/23 .COMPLEX #120 tabs levofloxacin 750 mg tablet 750 mg PO DAILY #5 tabs 12/17/23 prednisone 20 mg tablet 60 mg (3 x 20 mg) PO DAILY 4 days 12/17/23 #12 tabs Allergies Allergy/AdvReac Type Severity Reaction Status Date / Time No Known Allergies Allergy Unverified 12/17/23 07:35 General Stated Complaint: RespSymp FILOMENA: 3 Review of Systems All systems reviewed & are unremarkable except as noted in HPI and below Constitutional Constitutional: Denies chills, Denies fever(s) and Denies weakness Cardiovascular Cardiovascular: Denies chest pain and Reports dyspnea Respiratory Respiratory: Reports cough and Reports dyspnea Gastrointestinal Gastrointestinal: Denies abdominal pain, Denies nausea and Denies vomiting Neurologic Neurologic: Denies weakness Exam Const General: no acute distress Orientation: alert [facility] Head: normal to inspection Ears: external ears normal General nose exam: external nose normal Mouth: moist mucous membranes Eyes General: appearance normal, both eyes and all related structures Neck Neck: normal visual inspection Resp Auscultation: diminished lung sounds and wheezes Cardio Jugular venous pressure: no JVD Rate: regular rate Skin General skin exam: no rashes or lesions noted Neuro General: patient alert and patient oriented x3 Extrem General: normal to inspection Psych Mental Status: mental status grossly normal Course Vital Signs Vital signs: Vital Signs Pulse 105 H 12/17/23 07:27 Blood Pressure 121/92 H 12/17/23 07:27 Pulse Oximetry 87 L 12/17/23 07:27 Temperature 36.6 C 12/17/23 07:35 Temperature Source Oral 12/17/23 07:35 Pulse 69 12/17/23 07:35 Pulse 106 H 12/17/23 07:33 Respiratory Rate 24 12/17/23 07:35 Respiratory Effort Short of Breath, Accessory Muscle Use, Pursed Lip, Tripod, Incrsd Work of Breathing 12/17/23 07:33 Blood Pressure 121/92 H 12/17/23 07:30 Blood Pressure Mean 99 12/17/23 07:27 Blood Pressure Position Sitting 12/17/23 07:30 Pulse Oximetry 89 L 12/17/23 07:35 Oxygen Delivery Method Room Air 12/17/23 07:35 Oxygen Flow Rate 0 12/17/23 07:30 Pain Level 0 12/17/23 07:35 Comment no pain 12/17/23 07:30 Lab/Test Results Lab/Test Results: 12/17/23 07:37 Blood Blood Culture - Pending 12/17/23 07:37 Blood Blood Culture - Pending Medical Decision Making 5-year-old female with a history of bronchiectasis and COPD who comes in with 2 weeks of worsening shortness of breath with exertion. She also notes that she has had more of a productive cough recently. Denies any high fevers, chest pain, chest pressure, leg swelling or calf tenderness. She arrives hemodynamically stable room air sats ranging from 89-91 on my exam. Was given 1 neb with EMS with some improvement in her symptoms. She has apical wheezing bilaterally on lung exam and diminished breath sounds bilaterally at the bases. No JVD, no leg swelling or calf tenderness. Given her history and symptoms suspect COPD exacerbation, will check EKG and troponin, CBC, CMP, procalcitonin, Fluvid. Will also obtain a chest x-ray to evaluate for pneumonia. Given she is having increased cough will initiate antibiotics with levofloxacin. She has no signs of DVT on exam and her exam is consistent with COPD exacerbation so doubt PE at this time. Patient's labs are unremarkable as is x-ray for acute findings. She feels significantly better after nebs and steroids, delta troponins negative. Discussed results with her and she is at 92% on room air. She is requesting discharge home and given reassuring workup feel this is reasonable. Will provide a short course of levofloxacin and prednisone. She will follow-up with her PCP and return precautions given Differential Diagnosis Differential Diagnosis: COPD exacerbation, pneumonia, COVID Medical Records Medical records reviewed: Yes I reviewed the patient's medical records. Lab Data Lab results reviewed: Yes I reviewed the patient's lab results. ECG Data Attestation: I personally reviewed and interpreted this ECG (s) as follows: Prior ECG tracings: available for review Interpretation: Sinus tachycardia, rate of 103, SD 108, no STEMI Quality:SDOH Health Related Social Needs: No Data to Display PFSH All Active Problems (Updated 12/17/23 @ 10:58 by Ino Beaulieu MD) COPD exacerbation (Acute) Shortness of breath (Acute) Hiatal hernia with gastroesophageal reflux disease and esophagitis (Acute) Smoker (Acute) tyring to quit Mycobacterial infection, atypical (Acute) Aspiration pneumonia (Acute) COPD (chronic obstructive pulmonary disease) (Chronic) Tobacco use (Chronic) Chest pain (Acute) Vomiting (Acute) Cavitary lesion of lung (Chronic) Medical History Bronchiectasis Central perforation of tympanic membrane, 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 HSIL (high grade squamous intraepithelial lesion) on Pap smear of cervix Hypotension Nicotine dependence, cigarettes, uncomplicated Postoperative examination Preop examination Pulmonary nodules Surgical History Femur fracture, left H/O cone biopsy of cervix 02/10/21. 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, H/O varicose vein ligation H/O vein stripping History of back surgery Hx of appendectomy Hx of cholecystectomy S/P LEEP Family History Self Unknown family medical history Social History Smoking/Tobacco Use Status: Current every day Tobacco Type: cigarettes Years smoked: 50 Smoking risk assessment performed?: Yes Alcohol Intake: never Drug use: Occasionally Substance use type: does not use Details: marijuana: pt. reports it has been months and no longer uses Housing: house Do you feel safe at home: Yes Do you feel safe in your relationship?: Yes Additional Social history: lives with Female Reproductive History Menstrual Menopause type: natural
[2023-12-17 07:45] LABS: BE (Venous) 8 mmol/L (-2-3); HCO3 (Venous) 34 mmol/L (23-28); O2 Sat (Venous) 49 %; TCO2 (Venous) 31 mmol/L (24-29); pH (Venous) 7.35 (7.31-7.41); pO2 (Venous) 25 mmHg
[2023-12-17 07:47] LABS: Abs Immature Grans 0.02 10^3/uL (0.0-0.06); Absolute Basophil Count 0.03 10^3/uL (0.0-0.2); Absolute Eosinophil Count 0.08 10^3/uL (0.0-0.7); Absolute Lymphocyte Count 1.31 10^3/uL (1.2-3.4); Absolute Monocyte Count 0.52 10^3/uL (0.1-0.8); Absolute Neutrophil Count 4.47 10^3/uL (1.2-6.7); Basophils % 0.5 %; Eosinophils % 1.2 %; HCT 45.7 % (36.0-46.0); HGB 14.5 g/dL (11.2-15.7); Immature Grans % 0.3 %; Lymphocytes % 20.4 %; MCH 31.4 pg (27.0-33.0); MCHC 31.7 % (32.0-36.0); MCV 99 fL (80-95); Monocytes % 8.1 %; Neutrophils % 69.5 %; Platelet Count 170 10^3/uL (130-400); RBC 4.62 10^6/uL (3.93-5.22); RDW 12.8 % (11.7-14.6); RDW-SD 46.8 fL; WBC 6.43 10^3/uL (4.4-10.8)
[2023-12-17 07:50] LABS: pCO2 (Venous) 62 mmHg (41-51)
[2023-12-17] MEDS: Albuterol/Ipratropium 3 ML UPD VIAL UPD ×2 (07:59→08:16)
[2023-12-17] MEDS: levoFLOXacin 750 MG/150 ML BAG 100 MG IVPB (07:59)
[2023-12-17] MEDS: methylPREDNISolone SUCC 125 MG VIAL IVP (08:00)
[2023-12-17 08:08] LABS: ALT 24 U/L (14-59); AST 22 U/L (15-37); Albumin 3.6 g/dL (3.4-5.0); Alkaline Phosphatase 80 U/L (46-116); Anion Gap 4.9 mmol/L (3-11); BUN 17 mg/dL (7-18); Bilirubin, Total 0.45 mg/dL (0.2-1.0); CO2 32.1 mmol/L (21.0-32.0); CREATININE 0.8 mg/dL (0.55-1.02); Calcium 9.4 mg/dL (8.5-10.1); Chloride 107 mmol/L (98-107); Estimated GFR 79.22 (mL/min/1.73m2); Glucose 105 mg/dL (74-106); Magnesium 1.9 mg/dL (1.8-2.4); Potassium 3.8 mmol/L (3.5-5.1); Sodium 144 mmol/L (136-145); Total Protein 8.1 g/dL (6.4-8.2); Troponin I 8 ng/L (<or=51)
[2023-12-17 08:20] LABS: Procalcitonin < 0.1 ng/mL
[2023-12-17 08:23] LABS: COVID-19 PCR Negative (Negative); Influenza A PCR Negative (Negative); Influenza B PCR Negative (Negative); RSV PCR Negative (Negative)
[2023-12-17 08:28] LABS: Source Nasopharynx
--- NOTE | 2023-12-17 08:58 | DI.RAD_ITS ---
Exam(s) XR PORTABLE CHEST AP EXAM: XR PORTABLE CHEST AP CLINICAL HISTORY: cough TECHNIQUE: 2D digital imaging was performed. COMPARISON: CT CT CHEST WO from 08/03/2023 FINDINGS: Exam limited by overlying clothing and monitoring leads. LUNGS: Emphysematous changes. No evidence of infiltrate or pulmonary edema. Apical scarring. No pl eural abnormality seen. HEART: Normal size. AORTA: Normal diameter. BONES: Unremarkable for age. Soft tissues: Unremarkable. IMPRESSION: No acute findings. DATA REPOSITORY: RADIATION DOSE DELIVERED:
--- NOTE | 2023-12-17 09:19 | DI.VRAD_ITS ---
PROCEDURE INFORMATION: Exam: XR Chest Exam date and time: 12/17/2023 8:44 AM Age: 68 years old Clinical indication: Cough TECHNIQUE: Imaging protocol: Radiologic exam of the chest. Views: 1 view. COMPARISON: CT CHEST WO 08/03/2023 8:23 AM FINDINGS: Lungs: The lungs are prominently hyperexpanded with diaphragmatic flattening. No focal infiltrate or nodule. Pleural spaces: Unremarkable. No pleural effusion. No pneumothorax. Heart/Mediastinum: Cardiomediastinal silhouette is normal. Vasculature: Calcified aorta Bones/joints: Unremarkable. IMPRESSION: COPD with no acute abnormality. Dictated and Authenticated by: Luther Lincoln MD. Ordering:REUBEN Mckinnon MD
[2023-12-17 09:38] LABS: Troponin I 7 ng/L (<or=51)
[2023-12-17 11:03] LABS: Troponin I 5 ng/L (<or=51)
[2023-12-17 12:34] LABS: Bilirubin Negative (Negative); Blood Trace-intact (Negative); Clarity Sl Cloudy (Clear); Glucose Negative (Negative); Ketones Negative (Negative); Leukocyte Esterase Negative (Negative); Nitrite Negative (Negative); Specific Gravity 1.025 (1.005-1.025); Urobilinogen 0.2 mg/dL (Up to 0.2)
[2023-12-17 12:57] LABS: Bacteria Rare HPF (Negative); C & S Indicated? No; Casts Negative LPF (Negative); Crystals Many Calcium Oxalate HPF (Negative); Epithelial Cells Few HPF (Negative); Mucus Negative (Negative); WBC 0-2 HPF (0-5)
--- NOTE | 2023-12-17 13:41 | NUR.NOTE ---
Nursing Note: Got into chart to access urine results- Urine sent but patient discharged prior to urine resulting.
== END 2023-12-17 12:21 | disposition home or self-care (01) ==
PROVIDERS: Emergency Provider Emergency Medicine; PCP Nurse Practitioner Family
DX: J44.1 Chronic obstructive pulmonary disease with (acute) exacerbation (principal); R06.02 Shortness of breath; F17.200 Nicotine dependence, unspecified, uncomplicated
CPT/HCPCS: 36415; 80053; 82805; 84145; 87040; 87637; 93005; 94640; 96365; 96366; 96375; 99284; 71045; 81003; 81015; 83735; 84484; 85025; 93010; 99283; J1956; J2919; J7620

== ENCOUNTER → 2024-01-23 07:32 | Outpatient (BNVA) | payer MEDICARE, SELFPAY | PROVIDERS: PCP Nurse Practitioner Family; Referring Provider Nurse Practitioner Family; Visit Provider Physician Assistant Surgical | DX: J43.2 Centrilobular emphysema (principal); J47.9 Bronchiectasis, uncomplicated; R91.8 Other nonspecific abnormal finding of lung field; J98.4 Other disorders of lung; A31.9 Mycobacterial infection, unspecified; F17.210 Nicotine dependence, cigarettes, uncomplicated; Z29.11 Encounter for prophylactic immunotherapy for respiratory syncytial virus (RSV); Z23 Encounter for immunization | CPT/HCPCS: 90471R; 90679; 99214; G0008; Q2036 ==

== ENCOUNTER → 2024-05-02 09:29 | Outpatient (BNVA) | payer MEDICARE, SELFPAY | PROVIDERS: PCP Nurse Practitioner Family; Referring Provider Nurse Practitioner Family; Visit Provider Physician Assistant Surgical | DX: J47.9 Bronchiectasis, uncomplicated (principal); R91.8 Other nonspecific abnormal finding of lung field; J43.2 Centrilobular emphysema; J98.4 Other disorders of lung; A31.9 Mycobacterial infection, unspecified; F17.210 Nicotine dependence, cigarettes, uncomplicated | CPT/HCPCS: 99214; G0296 ==

== ENCOUNTER 2024-05-14 10:50 | Outpatient (REF) | payer MEDICARE, SELFPAY ==
[2024-05-14 15:53] LABS: Abs Immature Grans 0.01 10^3/uL (0.0-0.06); Absolute Basophil Count 0.03 10^3/uL (0.0-0.2); Absolute Eosinophil Count 0.07 10^3/uL (0.0-0.7); Absolute Lymphocyte Count 1.33 10^3/uL (1.2-3.4); Absolute Monocyte Count 0.54 10^3/uL (0.1-0.8); Absolute Neutrophil Count 3.26 10^3/uL (1.2-6.7); Basophils % 0.6 %; Eosinophils % 1.3 %; HCT 43.8 % (36.0-46.0); HGB 14.2 g/dL (11.2-15.7); Immature Grans % 0.2 %; Lymphocytes % 25.4 %; MCH 30.9 pg (27.0-33.0); MCHC 32.4 % (32.0-36.0); MCV 95 fL (80-95); MPV 11.4 fL (8.0-11.0); Monocytes % 10.3 %; Neutrophils % 62.2 %; Platelet Count 200 10^3/uL (130-400); RDW 13.1 % (11.7-14.6); RDW-SD 45.9 fL; WBC 5.24 10^3/uL (4.4-10.8)
[2024-05-14 16:17] LABS: Bacteria Negative HPF (Negative); Epithelial Cells Rare HPF (Negative); RBC 0-2 HPF (0-2); WBC 0-2 HPF (0-5)
[2024-05-14 16:18] LABS: C & S Indicated? No; Crystals Rare Calcium Oxalate HPF (Negative); Mucus Negative (Negative)
[2024-05-14 16:32] LABS: ALT 21 U/L (14-59); AST 22 U/L (15-37); Albumin 3.8 g/dL (3.4-5.0); Alkaline Phosphatase 83 U/L (46-116); Anion Gap 5.6 mmol/L (3-11); BUN 13 mg/dL (7-18); Bilirubin, Total 0.49 mg/dL (0.2-1.0); CO2 32.4 mmol/L (21.0-32.0); CREATININE 0.8 mg/dL (0.55-1.02); Chloride 107 mmol/L (98-107); Estimated GFR 79.22 (mL/min/1.73m2); Glucose 88 mg/dL (74-106); Sodium 145 mmol/L (136-145); Total Protein 7.9 g/dL (6.4-8.2)
== END 2024-05-14 10:51 | disposition home or self-care (01) ==
LOC: NCHCN 10:50
PROVIDERS: PCP Nurse Practitioner Family; Visit Provider Student in an Organized Health Care Education/Training Program
DX: R31.9 Hematuria, unspecified (principal)
CPT/HCPCS: 80053; 81015; 85025

== ENCOUNTER 2024-08-02 00:28 | Outpatient (CLI) | payer MEDICARE, SELFPAY ==
--- NOTE | 2024-08-02 09:30 | DI.CTLCSR_ITS ---
Exam(s) CT CHEST LUNG CANCER SCREEN EXAM: CT CHEST LUNG CANCER SCREEN CLINICAL HISTORY: Screening for lung cancer,cigarette nicotine dependance,F17.210 TECHNIQUE: Imaging Protocol: Axial computed tomography images with coronal and sagittal reformatted images were created and reviewed. Low dose screening protocol. COMPARISON: CT CT CHEST/ABD/PEL WO from 08/19/[address] CHEST WO from 04/27/[address] CHEST WO from 08/03/2023 FINDINGS: Tracheobronchial tree: there is mucous within the in the inferior right main bronchus and in a few ri ght lower lobe bronchi. Right lower lobe bronchiectasis is again noted. Mediastinum and Beatriz: No dominant adenopathy or fluid collection. Pulmonary parenchyma: No consolidation or dominant measurable mass. Moderate emphysematous changes, g reater in the upper lobes. Stable areas of scarring are noted in both upper lobes. There are no milagro mckayla cavitary lesions. No significant interstitial fibrosis. Lung Nodules: Stable areas of upper lobe scarring. 4 millimeter nodule left upper lobe. This appear s smaller when compared to previous exams. There is a nodule in the posterior left upper lobe now me asuring 9 x 5 millimeters. This was previously noted to be cavitary and is unchanged in size. Pleura: No effusion. No pneumothorax. Heart: The heart is not dilated. Moderate coronary artery calcifications are seen. No pericardial eff usion. Aorta: Ascending aorta measures 4 cm. Descending aorta measures 2.5 cm. Upper abdomen: Stone again noted at the lower pole of the left kidney. Bones: Unremarkable for age. Soft Tissues: Unremarkable. IMPRESSION: Nodule in the posterior upper lobe which is previously cavitary now appears solid. PET-CT should be considered for further evaluation. Lung RADS Cat 4A - Suspicious: Findings for which additional diagnostic testing and/or tissue samplin g recommended Lung-RADS 1.0 CATEGORIES: Category 0 - Prior chest CT exam(s) being located for comparison. Category 1 - Annual screening in 12 months. No nodules or definitely benign nodules. Category 2 - Annual screening in 12 months. Benign appearance. Nodules with low likelihood of becomin g active cancer. Category 3 - 6-month follow-up. Probably benign. Short-term follow-up suggested. Nodules with low lik elihood of becoming active cancer. Category 4A - 3-month follow-up and CT/PET if >8 mm in size. Suspicious finding. Findings which requi re additional testing. Category 4B - Findings which require additional testing and tissue sampling. Category 4X - Category 3 or 4 nodules with additional features or imaging findings that increases the suspicion of malignancy. Modifier S- Potentially clinically significant findings (non lung cancer) RADIATION DOSE DELIVERED: !Error Total DLP DATA REPOSITORY: All CT scans at this facility are submitted to the National Radiology Data Registry (NRDR) Dose Index Registry (DIR) with the [employer] ([employer]). RADIATION OPTIMIZATION: All CT scans at this facility use at least one of these dose optimization te chniques: automated exposure control; mA and/or kV adjustment per patient size (includes targeted exa ms where dose is matched to clinical indication); or iterative reconstruction.
== END 2024-08-02 00:48 ==
PROVIDERS: PCP Nurse Practitioner Family; Visit Provider Physician Assistant Surgical
DX: F17.210 Nicotine dependence, cigarettes, uncomplicated (principal); Z12.2 Encounter for screening for malignant neoplasm of respiratory organs; R91.8 Other nonspecific abnormal finding of lung field
CPT/HCPCS: 71271

== ENCOUNTER → 2024-08-07 09:32 | Outpatient (BNVA) | payer MEDICARE, SELFPAY | PROVIDERS: PCP Nurse Practitioner Family; Referring Provider Nurse Practitioner Family; Visit Provider Physician Assistant Surgical | DX: J47.9 Bronchiectasis, uncomplicated (principal); R91.8 Other nonspecific abnormal finding of lung field; J43.2 Centrilobular emphysema; F17.210 Nicotine dependence, cigarettes, uncomplicated; J98.4 Other disorders of lung; A31.9 Mycobacterial infection, unspecified | CPT/HCPCS: 99214 ==

== ENCOUNTER 2024-10-31 00:22 | Outpatient (CLI) | payer MEDICARE, SELFPAY ==
--- NOTE | 2024-10-31 08:47 | DI.CT_ITS ---
Exam(s) CT CHEST WO EXAM: CT CHEST WO CLINICAL HISTORY: follow up QUAN nodule, COPD, CAVITARY LESION LUNG, J43.2, J98.4. TECHNIQUE: Multi planar reconstructions were performed. CONTRAST MATERIAL: None COMPARISON: CT CT CHEST LUNG CANCER SCREEN from 08/02/2024 FINDINGS: CHEST: LUNGS: COPD emphysematous changes are again noted in the lung foley and there is bilateral lower lobe bronchiectasis well as bronchiectasis in the right middle lobe and lingular segment of the left lung. There is abundant mucus within the dilated bronchi in the right lower lobe again noted. The left lower lobe bronchi are devoid of mucus. There is some mucus in the right mainstem bronchus; none in left mainstem bronchus. There is no mucus in the trachea. Infiltrate in the posterior segment of the left upper lobe appears unchanged and a spiculated left upper lobe nodule is again noted, measuring 9 millimeters, unchanged. This is not cavitated. A small nodular infiltrate in the lateral aspect of the left upper lobe is unchanged. There are no other distal findings in the left upper lobe nor in the lingular segment of the left lung. There are no significant findings in the superior segment of the left lower lobe and there are no nodules nor infiltrates in the basal segments of the left lower lobe. There is no left pleural effusion. In the opposite-right lung bolus emphysematous changes are again noted in the apex and sub apical region. Nodular infiltrate or scarring is unchanged. There are no new ominous nodules in the right lower lobe and no pleural effusion. MEDIASTINUM: There is no obvious hilar nor mediastinal adenopathy. Is no subcarinal adenopathy. No axillary nor supraclavicular adenopathy. CARDIAC: Heart size is normal. There is no pericardial effusion.Coronary artery calcification again noted. Ascending thoracic aorta at is again noted be slightly prominent, again measuring 4 cm diameter. The diameter of the mid aortic arch is upper normal as is the diameter of the descending thoracic aorta. VISUALIZED UPPER ABDOMEN:Calculus in lower pole the left kidney again noted. The gallbladder is again noted to be surgically absent. OSSEOUS: No fractures nor significant osseous lesions.. IMPRESSION: 1. No significant change compared to the CT scan of 08/02/2024. 2. There are stable areas of scarring in both upper lobes. The previously described 9 x 5 mm non cavitated nodule in the left upper lobe is unchanged from 08/02/2024. Other smaller nodule in the lateral aspect of the left upper lobe is also unchanged. 3. There is significant bilateral bronchiectasis again noted and there is again noted abundant mucus within the dilated right lower lobe bronchi and right mainstem bronchus. There is no intraluminal mucus in the dilated bronchi in the opposite-left lung. 4. There are no pleural effusions and there is no intrathoracic adenopathy. RADIATION DOSE DELIVERED: 117.35mGy.cm Total DLP DATA REPOSITORY: All CT scans at this facility are submitted to the National Radiology Data Registry (NRDR) Dose Index Registry (DIR) with the [employer] ([employer]). RADIATION OPTIMIZATION: All CT scans at this facility use at least one of these dose optimization techniques: automated exposure control; mA and/or kV adjustment per patient size (includes targeted exams where dose is matched to clinical indication); or iterative reconstruction.
== END 2024-10-31 00:42 ==
LOC: DI 00:22
PROVIDERS: PCP Nurse Practitioner Family; Visit Provider Physician Assistant Surgical
DX: J43.2 Centrilobular emphysema (principal); J98.4 Other disorders of lung
CPT/HCPCS: 71250

== ENCOUNTER → 2024-11-06 09:11 | Outpatient (BNVA) | payer MEDICARE, SELFPAY | PROVIDERS: PCP Nurse Practitioner Family; Referring Provider Nurse Practitioner Family; Visit Provider Internal Medicine Pulmonary Disease | DX: J43.2 Centrilobular emphysema (principal); A31.0 Pulmonary mycobacterial infection; F17.210 Nicotine dependence, cigarettes, uncomplicated | CPT/HCPCS: 99214 ==